=== PATIENT | female | born 1945 | race Caucasian/White ===

== ENCOUNTER 2018-01-04 10:39 | Outpatient (REF) | payer MEDICARE, SELFPAY ==
[2018-01-04 14:39] LABS: Hemoglobin A1C 5.6 % (4.5-6.2)
[2018-01-04 16:27] LABS: Cholesterol 215 mg/dL (50-200); HDL Cholesterol 77 mg/dL (40-60); LDL CHOLESTEROL 115 mg/dL (<100); Triglyceride 111 mg/dL (30-150)
== END 2018-01-04 10:59 ==
LOC: NCHCN 10:39
PROVIDERS: PCP Internal Medicine; Visit Provider Family Medicine
DX: R35.8 Other polyuria (principal); H40.9 Unspecified glaucoma; I10 Essential (primary) hypertension; R63.4 Abnormal weight loss; E78.00 Pure hypercholesterolemia, unspecified; Z13.1 Encounter for screening for diabetes mellitus
CPT/HCPCS: 80061; 83721; 83036

== ENCOUNTER 2018-04-27 00:33 | Outpatient (CLI) | payer MEDICARE, SELFPAY ==
--- NOTE | 2018-04-27 14:14 | DI.CT_ITS ---
SYMPTOMS/DIAGNOSIS: MUSCLE WEAKNESS X A COUPLE OF YEARS, M62.81, ACUTE CONFUSION, R41.0, PT STATES SHE FELL ONE WEEK AGO AND BECAME MORE CONFUSED S/P HITTING LEFT SIDE (PARIETAL) OF HEAD CRANIAL CT: A noncontrast cranial CT was performed. The ventricular system is normal in appearance. There is no evidence of an intracranial mass lesion. There is no evidence of a subdural or epidural hematoma. No focal areas of decreased attenuation are seen. CONCLUSION: Normal noncontrast cranial CT.
== END 2018-04-27 00:53 ==
PROVIDERS: PCP Internal Medicine; Visit Provider Family Medicine
DX: M62.81 Muscle weakness (generalized) (principal); R41.0 Disorientation, unspecified; S00.93XD Contusion of unspecified part of head, subsequent encounter; Z91.81 History of falling
CPT/HCPCS: 70450

== ENCOUNTER 2018-06-18 15:37 | Emergency (ER) | payer MEDICARE, SELFPAY ==
[2018-06-18] VITALS (45 sets, daily range): BP systolic 192–245; BP diastolic 88–118; PULSE 60–74; RESP 10–26; TEMP 36.3; O2SAT 94–98
--- NOTE | 2018-06-18 15:59 | DI.COMBO_ITS ---
SYMPTOM/DIAGNOSIS: HYPERTENSION, HEADACHE, ? ACUTE CVA NONCONTRAST HEAD CT: A noncontrast enhanced examination was performed. There is no evidence of an intra or extra-axial hemorrhage. There is no evidence of a mass or fluid collection. The sibley white matter differentiation is well maintained. The ventricles are normal. There is no skull fracture. There is no evidence of sinus disease. There is no mastoid effusion. The soft tissues are unremarkable. SUMMARY: No acute intracranial abnormality is demonstrated. PA AND LATERAL CHEST: The lungs are free of infiltrate. There is no pleural effusion. The cardiovascular structures are intact. SUMMARY: No evidence of acute cardiopulmonary disease.
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
--- NOTE | 2018-06-18 16:31 | DI.VRAD_ITS ---
EXAM: CT Head Without Contrast EXAM DATE/TIME: 06/18/2018 4:02 PM CLINICAL HISTORY: 72 years old, female; Pain; Headache; Other: L sided; Patient HX: L sided headache, hypertension; Additional info: PT stated no headache but had lost some abilities TECHNIQUE: Imaging protocol: Axial computed tomography images of the head/brain without contrast. Coronal and sagittal reformatted images were created and reviewed. STROKE PROTOCOL was implemented. COMPARISON: CT Head^HEAD ROUTINE (Adult) 04/27/2018 2:07 PM FINDINGS: Brain: Normal. No hemorrhage. No significant white matter disease. No edema. Ventricles: Normal. No ventriculomegaly. Bones/joints: Unremarkable. No acute fracture. Sinuses: Visualized sinuses are unremarkable. No acute sinusitis. Mastoid air cells: Visualized mastoid air cells are unremarkable. No mastoid effusion. Soft tissues: Unremarkable. IMPRESSION: No acute intracranial abnormality. ASSESSMENT: ASPECTS ([place] Stroke Program Early CT Score) is 10. Dictated and Authenticated by: Vinh Doherty MD. Ordering:ISA Stevenson MD
--- NOTE | 2018-06-18 16:32 | DI.VRAD_ITS ---
EXAM: XR Chest, 2 Views EXAM DATE/TIME: 06/18/2018 4:02 PM CLINICAL HISTORY: 72 years old, female; Signs and symptoms; Other: Hypertension; Patient HX: Hypertension, headache; Additional info: R/O acute disease TECHNIQUE: Imaging protocol: XR of the chest, 2 views. COMPARISON: RF BARIUM SWALLOW W PA LAT CXR 11/10/2014 10:06 AM FINDINGS: Lungs: Minimal stranding attenuation in the lung bases likely reflects atelectasis versus scarring. No consolidation. Pleural space: Unremarkable. No pleural effusion. No pneumothorax. Heart/Mediastinum: Unremarkable. No cardiomegaly. Vasculature: Aortic atherosclerosis. Bones/joints: Chronic osseous changes. Redemonstration of a mid thoracic compression fracture. IMPRESSION: No acute cardiopulmonary findings. Dictated and Authenticated by: Vinh Doherty MD. Ordering:ISA Stevenson MD
[2018-06-18] MEDS: Labetalol 100 MG/20 ML VIAL 20 MG IVP ×2 (16:36→17:20)
[2018-06-18 16:42] LABS: Abs Immature Grans 0.04 k/cumm (0.0-0.09); Absolute Eosinophil Count 0.51 k/cumm (0.0-0.7); Absolute Monocyte Count 0.86 k/cumm (0.11-0.7); Absolute Neutrophil Count 4.75 k/cumm (1.2-6.7); Basophils % 1.1; Eosinophils % 5.5; HCT 40.2 % (36.0-46.0); HGB 13.7 g/dL (12.0-15.5); Immature Grans % 0.4; Lymphocytes % 32.4; Mean Corp. HGB Concentration 34.1 g/dL (32.0-36.0); Mean Corpuscular Hemoglobin 29.3 pg (27.0-33.0); Mean Corpuscular Volume 86.1 fL (80-95); Monocytes % 9.3; Neutrophils % 51.3; Platelet Count 229 x1000/uL (130-400); RBC 4.67 m/cumm (4.00-5.20); RBC Distribution Width 12.5 % (11.7-14.6); White Blood Cell Count 9.26 k/cumm (4.4-10.8)
[2018-06-18 16:57] LABS: ALT 17 U/L (12-78); AST 7 U/L (15-37); Albumin 4.2 g/dL (3.4-5.0); Alkaline Phosphatase 112 U/L (46-116); Anion Gap 10.2 mmol/L (3-11); BUN 20 mg/dL (7-18); Bilirubin, Total 0.5 mg/dL (0.2-1.0); CO2 28.8 mmol/L (21.0-32.0); CREATININE 1.06 mg/dL (0.55-1.02); Calcium 9.2 mg/dL (8.5-10.1); Chloride 103 mmol/L (98-107); Glucose 97 mg/dL (70-100); Potassium 3.9 mmol/L (3.5-5.1); Sodium 142 mmol/L (136-145)
[2018-06-18 16:58] LABS: Troponin I < 0.02 ng/mL (0.00-0.06)
[2018-06-18 17:01] LABS: Magnesium 1.9 mg/dL (1.8-2.4); NT-proBNP 790 pg/mL
[2018-06-18 17:06] LABS: Bilirubin Negative (Negative); Blood Negative (Negative); Clarity Clear; Glucose Negative (Negative); Ketones Negative (Negative); Leukocyte Esterase Negative (Negative); Nitrite Negative (Negative); Specific Gravity 1.015 (1.005-1.025); Urobilinogen 0.2 EU/dL (Up TO 0.2); pH 7.5 (5-8)
--- NOTE | 2018-06-19 09:00 | PDOC.ERCMPRO ---
Care Management Progress Note 06/19-Dr. Kincaid requested assistance with a PCP (Brianna) f/u on Monday, 06/19 for hypertension emergency. Referral faxed to [facility] this am. This CM also called [facility] and spoke with Judy. Judy states patient is scheduled to see Dr. Alexander today.
--- NOTE | 2018-06-19 09:03 | CMPROGNOTE_ITS ---
Care Management Progress Note 06/19-Dr. Kincaid requested assistance with a PCP (Brianna) f/u on Monday, 06/19 for hypertension emergency. Referral faxed to [facility] this am. This CM also called [facility] and spoke with Judy. Judy states patient is scheduled to see Dr. Alexander today.
== END 2018-06-18 19:10 | disposition left against medical advice (07) ==
PROVIDERS: Emergency Provider Physician Assistant; PCP Internal Medicine
DX: I16.0 Hypertensive urgency (principal)
CPT/HCPCS: 36415; 80053; 93005; 96374; 96376; 99285; 70450; 71046; 81003; 83735; 83880; 84484; 85025; 93010

== ENCOUNTER → 2018-10-05 09:28 | Outpatient (BNVA) | payer MEDICARE, SELFPAY | PROVIDERS: PCP Internal Medicine; Referring Provider Internal Medicine; Visit Provider Surgery | DX: R13.10 Dysphagia, unspecified (principal); I10 Essential (primary) hypertension; G20 Parkinson's disease | CPT/HCPCS: 99202; 99213 ==

== ENCOUNTER 2018-11-09 09:00 | Day surgery (SDC) | payer MEDICARE, SELFPAY ==
[2018-11-09 09:35] VITALS: BP 126/80; PULSE 72; RESP 16; TEMP 36.7; O2SAT 72
[2018-11-09] MEDS: Lactated Ringers 1,000 ML 80 ML IV (09:45)
[2018-11-09] MEDS: Lidocaine 2% Pres-Free 5 ML VIAL IVP (10:30)
--- NOTE | 2018-11-09 10:56 | W.PM.DSUDISC ---
Discharge Plan Disposition Patient Disposition: HOME Condition: Good Discharge Details Reason For Visit: EGD with dilation Attending Provider: Kellee Antonio Primary Care Provider: Rosario Reed Home Meds and New Rx's Prescriptions: Continued diltiazem HCl [Cardizem LA] 360 mg tablet extended release 24 hr 360 mg PO DAILY RF: 0 polyethylene glycol 3350 [Miralax] 17 gram powder in packet 17 g PO DAILY PRNRF: 0 spironolactone 25 MG tablet 25 mg PO DAILY RF: 0 aspirin [Aspirin Low-Strength] 81 MG tablet,chewable 81 mg PO DAILY RF: 0 hydrocodone-acetaminophen 1 TAB tablet 1 tab PO TID PRN PRNRF: 0 cyclobenzaprine 10 mg Tablet 10 mg PO BID RF: 0 bupropion HCl [Wellbutrin SR] 150 mg Tablet Sustained-Release 12 Hr 150 mg PO BID RF: 0 oxybutynin chloride 10 mg Tablet Extended Release 24hr 10 mg PO DAILY RF: 0 cyanocobalamin (vitamin B-12) [Vitamin B-12] 1,000 mcg Tablet 1,000 mcg PO DAILY RF: 0 trazodone 100 mg Tablet 50 - 100 mg PO QHS RF: 0 pravastatin 20 mg Tablet 20 mg PO DAILY RF: 0 gabapentin 100 mg Capsule 100 mg PO BID RF: 0 albuterol sulfate [ProAir HFA] 90 mcg/actuation Hfa Aerosol Inhaler 2 puff INHALATION Q6H PRNRF: 0 losartan 100 mg Tablet 100 mg PO DAILY RF: 0 fluticasone propionate 50 mcg/actuation [place],Suspension 1 spray INTRANASAL BID RF: 0 naproxen 500 mg Tablet 500 mg PO BID RF: 0 buspirone 15 mg Tablet 15 mg PO BID RF: 0 magnesium L-lactate 84 mg Tablet Extended Release 84 mg PO HS RF: 0 Combigan 0.2-0.5 % Drops 1 drp OPHTHALMIC (EYE) BID RF: 0 cholecalciferol (vitamin D3) [Vitamin D3] 5,000 unit tablet 5,000 unit PO DAILY RF: 0 carbidopa-levodopa 25-100 mg Tablet 1 tab PO TID RF: 0 Discharge Instructions Additional Instructions: Findings: No significant abnormalities were seen. There was no inflammation in the esophagus. A dilation was performed. If this does not improve your swallowing, please contact your primary physician to consider a swallow study. Use antacids as needed. Please call if you develop: fevers >101.5 Nausea or Vomiting Abdominal or chest pain that is not transient DAY SURGERY UNIT POST EGD INSTRUCTIONS 1. Because there will be medication in your system for the next 24 hours, you may feel a little sleepy. Your coordination will be affected. Therefore: a. Do not drive or operate dangerous equipment for 24 hours. b. Do not drink alcohol beverages for 24 hours (not even beer). c. Plan to go home and rest for the day. 2. Generally there are no restrictions on your activity after a day or so has gone by, but you may feel a bit fatigued for a few days. 3 After you arrive home you may have a light meal and return to a normal diet as you can tolerate it without feeling sick to your stomach. 4. After surgery, you may feel pain or discomfort. This should be only transient, but if it persists please contact your doctor. 5. If there are any questions regarding the findings of your procedure, please feel free to contact your doctor. 6. If you are unable to contact your doctor with a problem, contact the hospital at [phone]. 7. Continue all your regular medications unless directed otherwise. I understand the above instructions and have no questions. Signature of Patient or Responsible Adult Escort Date/Time Name of Responsible Adult Escort Signature of Nurse Date/Time Activity:: Activity as Tolerated Diet:: As Tolerated Discharge Orders Discharge Orders: Discharge Order (Routine); Ordered 11/09/18 Ordered By: Kellee Antonio DS: Diagnosis Discharge Diagnosis (1) Dysphagia: Status: Acute (2) History of esophagogastroduodenoscopy (EGD):
[2018-11-09 11:35] VITALS: BP 115/75; PULSE 65; RESP 16; TEMP 36; O2SAT 96
--- NOTE | 2018-11-09 14:17 | ENDO_ITS ---
REPORT OF OPERATIVE PROCEDURE DATE OF PROCEDURE November 09, 2018 PREOPERATIVE DIAGNOSES Dysphagia. POSTOPERATIVE DIAGNOSES Dysphagia. PROCEDURE EGD with balloon dilation of the esophagus. SURGEON Kellee Antonio M.D. ANESTHESIA Monitored Anesthesia Care. INDICATIONS This is a 73-year-old woman who notes dysphagia on a frequent basis. This was primarily for breads. She has had an upper endoscopy for the same indication with the last one being done in 2016. At that time, she had biopsies of the esophagus that did not show evidence of eosinophilic esophagitis. The patient occasionally uses Tums for reflux. She has been recently diagnosed with Parkinson's. PROCEDURE DESCRIPTION The patient was placed in the left lateral decubitus position. Propofol was titrated to sedation. The scope was advanced into her esophagus under direct visualization and down into the stomach and duodenum. There was no duodenitis or ulcers noted. The stomach itself appeared normal, including on retroflexed view of the fundus and lesser curvature. The GE junction was carefully inspected and did not show an obvious stricture. There was also no evidence of masses, inflammation or Garcia's. There was a bit of angulation here, which made it slightly difficult to see the esophagus distend adequately. Given her symptoms, I elected to proceed with balloon dilation. I inserted the balloon and gradually inflated it from 15 mm to 18 mm. The balloon was held in place for a minute and then deflated. There was no evidence of tissue trauma. The scope was slowly withdrawn with no other esophageal lesions found. She tolerated the procedure well, and was stable to Recovery. I suspect her symptoms are probably from dysmotility and she can consider a swallow study as the next step. CC: Rosario Reed M.D.
== END 2018-11-09 11:55 | disposition home or self-care (01) ==
PROVIDERS: PCP Family Medicine; Visit Provider Surgery
PROC: 0DJ68ZZ Inspection of Stomach, Via Natural or Artificial Opening Endoscopic (ICD-10-PCS; CPT 43235; principal; 2018-11-09 10:30)
DX: R13.10 Dysphagia, unspecified (principal); I10 Essential (primary) hypertension
CPT/HCPCS: 43249; J2250

== ENCOUNTER 2019-01-16 21:43 | Outpatient (REF) | payer MEDICARE, SELFPAY ==
[2019-01-16 21:17] LABS: HCT 40.3 % (36.0-46.0); HGB 13.3 g/dL (12.0-15.5)
[2019-01-16 21:29] LABS: ALT 30 U/L (14-59); AST 10 U/L (15-37); Albumin 3.8 g/dL (3.4-5.0); Alkaline Phosphatase 144 U/L (46-116); Anion Gap 8.1 mmol/L (3-11); BUN 18 mg/dL (7-18); Bilirubin, Total 0.2 mg/dL (0.2-1.0); CO2 28.9 mmol/L (21.0-32.0); CREATININE 1.07 mg/dL (0.55-1.02); Calcium 8.8 mg/dL (8.5-10.1); Chloride 107 mmol/L (98-107); Estimated GFR 50.41 (mL/min/1.73m2); Glucose 126 mg/dL (70-100); Sodium 144 mmol/L (136-145); Total Protein 6.1 g/dL (6.4-8.2)
== END 2019-01-16 22:03 ==
LOC: NCHCN 21:43
PROVIDERS: PCP Family Medicine; Visit Provider Specialist/Technologist Athletic Trainer
DX: E83.42 Hypomagnesemia (principal); I10 Essential (primary) hypertension
CPT/HCPCS: 80053; 85014; 85018

== ENCOUNTER 2019-04-25 10:33 | Outpatient (REF) | payer MEDICARE, SELFPAY ==
[2019-04-25 13:56] LABS: Abs Immature Grans 0.05 k/cumm (0.0-0.09); Absolute Basophil Count 0.11 k/cumm (0.0-0.2); Absolute Eosinophil Count 0.43 k/cumm (0.0-0.7); Absolute Lymphocyte Count 2.43 k/cumm (1.2-3.4); Absolute Monocyte Count 0.89 k/cumm (0.11-0.7); Absolute Neutrophil Count 6.08 k/cumm (1.2-6.7); Basophils % 1.1; Eosinophils % 4.3; HCT 43.5 % (36.0-46.0); HGB 14.3 g/dL (12.0-15.5); Immature Grans % 0.5 %; Lymphocytes % 24.3; Mean Corp. HGB Concentration 32.9 g/dL (32.0-36.0); Mean Corpuscular Hemoglobin 28.6 pg (27.0-33.0); Monocytes % 8.9; Neutrophils % 60.9; Platelet Count 289 x1000/uL (130-400); RBC Distribution Width 13.7 % (11.7-14.6); White Blood Cell Count 9.99 k/cumm (4.4-10.8)
[2019-04-25 14:24] LABS: ALT 10 U/L (14-59); AST 10 U/L (15-37); Albumin 3.9 g/dL (3.4-5.0); Alkaline Phosphatase 144 U/L (46-116); Anion Gap 9.7 mmol/L (3-11); BUN 18 mg/dL (7-18); Bilirubin, Total 0.4 mg/dL (0.2-1.0); CO2 30.3 mmol/L (21.0-32.0); CREATININE 0.92 mg/dL (0.55-1.02); Calcium 9.1 mg/dL (8.5-10.1); Calculated LDL 209 mg/dL (<100); Chloride 104 mmol/L (98-107); Cholesterol 298 mg/dL (<200); Glucose 110 mg/dL (74-106); HDL Cholesterol 69 mg/dL (40-60); Potassium 3.9 mmol/L (3.5-5.1); Sodium 144 mmol/L (136-145); TSH (W/Ref FT4) 1.09 uIU/mL (0.36-3.74); Total Protein 6.5 g/dL (6.4-8.2); Triglyceride 103 mg/dL (<150)
== END 2019-04-25 10:53 ==
LOC: NCHCN 10:33
PROVIDERS: PCP Family Medicine; Visit Provider Family Medicine
DX: I10 Essential (primary) hypertension (principal); E78.00 Pure hypercholesterolemia, unspecified; G20 Parkinson's disease; H40.9 Unspecified glaucoma
CPT/HCPCS: 80053; 80061; 84443; 85025

== ENCOUNTER → 2020-01-06 10:53 | Outpatient (BNVA) | payer MEDICARE, SELFPAY | PROVIDERS: PCP Family Medicine; Referring Provider Family Medicine; Visit Provider Surgery | DX: R13.10 Dysphagia, unspecified (principal); G20 Parkinson's disease; I10 Essential (primary) hypertension | CPT/HCPCS: 99212 ==

== ENCOUNTER 2020-02-20 02:50 | Outpatient (CLI) | payer MEDICARE, SELFPAY ==
[2020-02-22 16:38] LABS: COVID-19 RT-PCR Result NEGATIVE (Negative)
== END 2020-02-20 03:10 ==
PROVIDERS: PCP Family Medicine; Visit Provider Family Medicine
DX: Z11.59 Encounter for screening for other viral diseases (principal); Z01.818 Encounter for other preprocedural examination
CPT/HCPCS: U0003

== ENCOUNTER 2020-02-24 00:14 | Outpatient (CLI) | payer MEDICARE, SELFPAY ==
--- NOTE | 2020-02-24 08:00 | DI.RAD_ITS ---
TECHNIQUE: Modified barium swallow was performed in conjunction with speech pathology. CONTRAST MATERIAL: Oral barium Oral water soluble contrast was administered. COMPARISON: No exams were available for comparison FINDINGS: There is no evidence of aspiration or penetration of thick or thin liquids, barium coated apple sauce , cottage cheese or cookies. Esophagus sweep revealed significant distal dysmotility with believe it distal stricture Speech pathology report to follow. . . . IMPRESSION: No evidence of aspiration or penetration. See speech pathologist's report. However, also suspicion f or possible distal stricture esophagus. Recommend endoscopy. RADIATION DOSE DELIVERED: Element of esophageal dilatation
--- NOTE | 2020-02-24 14:12 | ST.MBS ---
Modified Barium Swallow Date of service: 02/24/20 Study Findings: HPI: Patient is a 74 year old female, referred for VFSS/MBSS given clinical s/sx of oropharyngeal dysphagia PMHx: Parkinsons Disease, Lewy body dementia, recurrent dysphagia, GERD, myalgia and myositis, spondylosis of lumbar region without myelopathy or radiculopathy, Anxiety, Depression, Dissociative identity disorder, Essential tremor, Fibromyalgia, Glaucoma, History of substance abuse, HTN (hypertension), Hypercholesterolemia, Hypomagnesemia, Lactose intolerance, PTSD (post-traumatic stress disorder), Urinary incontinence; patient does have hx of esophageal strictures in the past, S/P dilatations in 2015, 2016, and most recently 2019, also reports being on Prilosec at one point, and is unsure if she had any esophagitis in the past. Patient is unable to report whether esophageal dilation was upper or lower esophagus prior to study today. Previous Imaging: EGD with esophageal dilation with Dr. Antonio (11/09/18) EGD - [facility] (01/16/15) DR. HAMLET THOMAS, with dilatation EGD - [facility] (02/10/16) DR. HAMLET THOMAS, with dilatation History of back surgery History of esophagogastroduodenoscopy (EGD) 11/09/18 History of surgery on arm Follow-Up with Dr. Antonio (01/06/20) The EGD last year did not show an obvious source for dysphagia and she did not gain much from the dilation. At that time a motility issue was a concern. I advise investigating that issue first before proceeding with an invasive procedure. She may have achalasia, nutcracker esophagus or motility issues related to Parkinsons. Manometry may be indicated depending on the results. We can also reconsider EGD if needed. All recommendations discussed with patient today; both Dr. Reed and Dr. Antonio cc'd on this report with recommendations as outlined below. Subjective: Patient states that bread causes her throat to close, and that she typically does not have issues with swallowing pills in particular (PILL-5 = 1, WFL), although occasionally pills do get stuck. Patient also reports increase in belching as of late, lots of phlegm, and severe reflux/heartburn. Of note, patient does report that pain with swallowing (motions to pharyngeal area) occurs with swallow onset (rated at 3/10, when squeezing food or liquids down) and then increases briefly after she has swallowed (rated at 8/10, described as dull but strong pain) which then completely subsides. Patient also reports she 'chokes almost daily', reports she has a frequent cough (not observed today), which she relates to ongoing reflux; also endorses an unintentional, approximate 20-lb weight loss over past year. Patient also agreeable to continued recommendations for behavioral management of reflux symptomology (RSI=32, high) and continued physician consult for additional management. PILL-5 = 1 (WFL) EAT-10 = 9 (scores above 3 may indicate inefficiency with swallowing) RSI = 32 (scores above 13 may indicate significant reflux disease) Objective: Videofluoroscopic Swallow Study (VFSS) was conducted in the lateral and [id number] projections by Speech-Language Pathologist, in collaboration with Radiologist, to evaluate oropharyngeal swallow function. Anatomic view under fluoroscopy: [facility] Patient denies pain during or after exam today. PO barium contrast trials: Oral barium Oral water soluble contrast was administered. Specifically, Varibar thin (40% w/v), Varibar nectar/mildly thick liquid (40% w/v), Varibar thin honey (moderately-thick) liquid (40% w/v), Varibar pudding (40% w/v), 13mm barium tablet, and solid any cracker coated in Varibar pudding. Oral phase findings: Lip closure: WFL - 0, no labial escape Tongue control: WFL - 0, cohesive bolus to tongue to palatal seal Bolus preparation: WFL - 1, slow prolonged mastication with complete recollection Bolus Transport/Lingual motion: WFL - 1, delayed initiation of tongue motion Oral residue: 1C, trace residue lining oral structures / tongue Pharyngeal phase findings: Initiation of swallow: 3, bolus head in pyriforms Velar elevation: WFL - 0, no bolus between SP/PW Laryngeal elevation: 1, partial superior movement of thyroid cartilage/partial approximation of arytenoids to epiglottic petiole Anterior hyoid excursion: 1, partial anterior movement Epiglottic movement: 1, partial inversion Laryngeal vestibule closure: 1, incomplete; narrow column contrast in laryngeal vestibule Pharyngeal stripping wave: WFL - 0, complete Pharyngeal contraction: WFL - 0, complete PES openin, partial distension/partial duration; partial obstruction of flow BOT retraction: WFL - 0, No contrast between TB and posterior PW Pharyngeal residue: 1A, 1E - Trace residue within or on pharyngeal structures (TB, PS) Esophageal findings: NOTE: This study was performed for interpretation only of the oropharyngeal and pharyngoesophageal domains of swallowing. It is not intended to diagnose any other radiologic abnormalities or substitute for a formal esophagram study. Esophageal clearance: 2, esophageal retention w retrograde flow below pharyngoesophageal segment (PES) 8-point Penetration-Aspiration Scale (PAS) [place] Pharyngeal Residue Severity Rating Scale [Valleculae/Pyriform Sinus] IDDSI Level: 0 - Thin liquid PAS: 2 Susan: 03/20 2 - Mildly Thick PAS: 2 Susan: 2 3- Moderately thick/Liquidised PAS: 1 [place]: 04/21 4 - Extremely Thick/Pureed PAS: 1 Susan: 05/19 7 - Regular PAS: 1 [place]: 04/21 13mm barium pill + 0 - Thin liquid PAS: 1 [place]: 03/20 Compensatory Swallow Strategies: N/A Dysphagia Outcome and Severity Scale (ERIN): 6 Assessment: Swallow efficiency is impaired; swallow safety is grossly preserved at this time. Patient demonstrates oropharyngeal dysphagia with esophageal involvement, as characterized by mild pharyngeal hypokinesia and slight dysrhythmic swallowing movements/coordination with delayed pharyngeal swallow initiation, resulting in trace-mild vallecular and pyriform sinus residue with liquids of higher viscosity; occasional laryngeal penetration (deemed WFL, material enters the laryngeal vestibule but remains above the VFs, is ejected from airway with volitional swallow sequence); esophageal retention is noted with retrograde flow below pharyngoesophageal segment (PES). No evidence of aspiration noted with any trialed consistencies; dysphagia presentation likely due to combination of referred sensations from esophageal involvement paired with progressive nature of overall swallowing decline in Parkinson's Disease. Swallow prognosis is good at this time, pending GI consult with consideration of barium esophagram/high resolution manometry, patient involvement in PD-specific voice/swallow exercise treatment and proactive maintenance program(s) with FLOOR LAYER APPRENTICE as appropriate. Plan: Diet recommendation: IDDSI 7/0 Diet modification is per patient's preference; please adjust diet at patient's discretion. Risk management: Behavioral reflux precautions, including upright position during + 90 mins after meals. small bites/sips, alternate solid/liquid as able pharyngeal globus: multiple swallows per bolus as needed, thin liquid wash Control risk factors for aspiration pneumonia via (a) oral hygiene & (b) maintaining physical mobility as tolerated Specialist referrals: GI to further investigate esophageal involvement RD to address nutritional concerns, unintended weight loss Ancillary tests: Consider Barium Esophagram or High Resolution Manometry Therapy: Recommend subsequent outpatient session with FLOOR LAYER APPRENTICE to review results of today's exam in detail, develop treatment plan as appropriate. May address the following: PD-specific voice/swallow treatment programs (LSVT-LOUD, SPEAK OUT!) once reflux symptomology is well-managed, RMST to maintain respiratory strength in context of expected PD progression; Recommend administration of swallowing disturbance questionnaire (SDQ) or [place] Dysphagia test-Parkinson?s disease (MDT-PD) to identify relative changes over time. Goal: N/A Follow-up exam: Recommend follow-up VFSS/MBSS within 6 months Note: Best practice indicates routine, repeat VFSS/MBSS for patients diagnosed with PD - Due to the low association between PD patients' self reported swallowing condition and actual swallowing function, either FEES or VFSS/MBSS is essential for the assessment of dysphagia in PD (Marvin & Ana, 2020) Thank you for allowing me to take part in this patient's care. Please feel free to contact me with any questions/concerns. Yelitza Yo MA [facility]-FLOOR LAYER APPRENTICE Speech Language Pathologist [phone] FLOOR LAYER APPRENTICE Service Code(s): Modified Barium Swallow Study 64862
[2020-02-25] MEDS: Barium Sulfate Oral Paste 40% W/V 230 ML TUBE PO (08:57)
[2020-02-25] MEDS: Barium Sulfate 81% w/w for Oral Suspension 148 GM BTL PO (08:58)
[2020-02-25] MEDS: Barium Sulfate 40% W/V 240 ML BTL PO (13:30)
== END 2020-02-24 00:34 ==
PROVIDERS: PCP Family Medicine; Visit Provider Surgery
DX: R13.12 Dysphagia, oropharyngeal phase (principal)
CPT/HCPCS: 92526; 74221; J3490

== ENCOUNTER → 2020-05-04 13:22 | Outpatient (BNVA) | payer MEDICARE, SELFPAY | PROVIDERS: PCP Family Medicine; Referring Provider Family Medicine; Visit Provider Surgery | DX: K20.90 Esophagitis, unspecified without bleeding (principal); F12.11 Cannabis abuse, in remission; Z87.891 Personal history of nicotine dependence; G20 Parkinson's disease ==

== ENCOUNTER 2020-05-04 14:12 | Outpatient (CLI) | payer MEDICARE, SELFPAY ==
[2020-05-04 14:51] LABS: Abs Immature Grans 0.05 10^3/uL (0.0-0.06); Absolute Eosinophil Count 0.23 10^3/uL (0.0-0.7); Absolute Lymphocyte Count 2.49 10^3/uL (1.2-3.4); Absolute Monocyte Count 0.82 10^3/uL (0.1-0.8); Absolute Neutrophil Count 6.21 10^3/uL (1.2-6.7); Eosinophils % 2.3; HCT 40.6 % (36.0-46.0); HGB 13.3 g/dL (11.2-15.7); Immature Grans % 0.5; Lymphocytes % 25.2; MCH 29.4 pg (27.0-33.0); MCHC 32.8 % (32.0-36.0); MCV 89.8 fL (80-95); Monocytes % 8.3; Neutrophils % 62.7; Nucleated RBC 0 %; Platelet Count 276 10^3/uL (130-400); RBC 4.52 10^6/uL (3.93-5.22); RDW 12.3 % (11.7-14.6); RDW-SD 40.5 fL
[2020-05-04 15:43] LABS: ALT 24 U/L (14-59); AST 14 U/L (15-37); Albumin 3.6 g/dL (3.4-5.0); Alkaline Phosphatase 160 U/L (46-116); BUN 22 mg/dL (7-18); Bilirubin, Total 0.2 mg/dL (0.2-1.0); CREATININE 0.9 mg/dL (0.55-1.02); Calcium 9.1 mg/dL (8.5-10.1); Chloride 107 mmol/L (98-107); Glucose 100 mg/dL (74-106); Sodium 146 mmol/L (136-145); Total Protein 6.2 g/dL (6.4-8.2)
[2020-05-05 19:40] LABS: COVID-19 RT-PCR UVMMC Result Negative (Negative)
== END 2020-05-04 14:13 | disposition home or self-care (01) ==
LOC: LBO 14:12
PROVIDERS: PCP Family Medicine; Visit Provider Surgery
DX: E73.9 Lactose intolerance, unspecified (principal); F12.11 Cannabis abuse, in remission; F44.81 Dissociative identity disorder; K50.90 Crohn's disease, unspecified, without complications; K22.2 Esophageal obstruction; M47.816 Spondylosis without myelopathy or radiculopathy, lumbar region; Z87.891 Personal history of nicotine dependence; Z20.822 Contact with and (suspected) exposure to COVID-19; Z01.818 Encounter for other preprocedural examination
CPT/HCPCS: 36415; 80053; 99212; 99214; U0003; U0005; 85025

== ENCOUNTER 2020-05-08 09:49 | Day surgery (SDC) | payer MEDICARE, SELFPAY ==
[2020-05-08 10:16] VITALS: BP 165/85; PULSE 63; RESP 16; TEMP 36.5; O2SAT 97
[2020-05-08] MEDS: Lactated Ringers 1,000 ML 80 ML IV (10:35)
--- NOTE | 2020-05-08 11:27 | BOWEL_PTH ---
PATIENT: Alyson Galvez LOC: [facility] U#:[id number] AGE/SX: 74/F ROOM: RE05/08/[address]: Nava Parra : 1945 BED: DIS: 05/08/2020 SPEC #: [id number] RECD: 05/08/20 12:34 STATUS: YANETH RE #: [id number] TIMBO: 05/08/20 11:[address]: Nava Parra DEPT: Surgical Specimen RECD BY: Susan Flanagan ENTERED: 05/08/20 12:39 SP TYPE: Bowel OTHR DR: Rosario Reed Tissues: 1 - BIOPSY BOWEL 2 - STOMACH BIOPSY 3 - STOMACH BIOPSY 4 - ESOPHAGUS BIOPSY 5 - ESOPHAGUS BIOPSY 6 - HERNIA SAC,OTHER Procedures: GROSS AND MICRO LEVEL 4 IMMUNOPEROXIDASE STAIN SPECIAL STAIN 1 Comments: [id number]
[2020-05-08 11:39] VITALS: BP 107/65; PULSE 55; RESP 13; TEMP 36.2; O2SAT 100
[2020-05-08 11:44] VITALS: BP 146/59; PULSE 53; RESP 12; TEMP 36.2; O2SAT 100
[2020-05-08 11:49] VITALS: BP 158/86; PULSE 61; RESP 13; TEMP 36.2; O2SAT 100
[2020-05-08 11:54] VITALS: BP 151/73; PULSE 55; RESP 10; TEMP 36.2; O2SAT 98
--- NOTE | 2020-05-08 11:55 | PDOC.DSDIS_ITS ---
Discharge Plan Disposition Patient Disposition: HOME Condition: Good Discharge Details Reason For Visit: stomach scope Attending Provider: Nava Parra Primary Care Provider: Rosario Reed Home Meds and New Rx's Prescriptions: New pantoprazole [Protonix] 40 mg tablet,delayed release (DR/EC) 40 mg PO DAILY Qty: 90 RF: 4 sucralfate [Carafate] 1 gram tablet 1 g PO QHS Qty: 180 RF: 4 Continued diltiazem HCl [Cardizem LA] 360 mg tablet extended release 24 hr 360 mg PO DAILY RF: 0 polyethylene glycol 3350 [Miralax] 17 gram powder in packet 17 g PO DAILY PRNRF: 0 sennosides [Natural Senna Laxative] 8.6 mg tablet 8.6 mg PO BID RF: 0 oxybutynin chloride 5 mg tablet 5 mg PO QHS RF: 0 mirtazapine 15 mg tablet 15 mg PO QHS RF: 0 hydrocodone-acetaminophen 10-325 mg tablet 1 tab PO Q8H PRNRF: 0 albuterol sulfate [ProAir HFA] 90 mcg/actuation HFA aerosol inhaler 2 puff inhalation Q6H PRNRF: 0 spironolactone 25 MG tablet 25 mg PO DAILY RF: 0 cyclobenzaprine 10 mg Tablet 10 mg PO BID RF: 0 bupropion HCl [Wellbutrin SR] 150 mg Tablet Sustained-Release 12 Hr 150 mg PO BID RF: 0 oxybutynin chloride 10 mg Tablet Extended Release 24hr 10 mg PO DAILY RF: 0 cyanocobalamin (vitamin B-12) [Vitamin B-12] 1,000 mcg Tablet 1,000 mcg PO DAILY RF: 0 trazodone 100 mg Tablet 50 - 100 mg PO QHS RF: 0 pravastatin 20 mg Tablet 20 mg PO DAILY RF: 0 gabapentin 100 mg Capsule 100 mg PO BID RF: 0 losartan 100 mg Tablet 100 mg PO DAILY RF: 0 fluticasone propionate 50 mcg/actuation [place],Suspension 1 spray INTRANASAL BID RF: 0 naproxen 500 mg Tablet 500 mg PO BID RF: 0 buspirone 15 mg Tablet 15 mg PO BID RF: 0 magnesium L-lactate 84 mg Tablet Extended Release 84 mg PO HS RF: 0 Combigan 0.2-0.5 % Drops 1 drp OPHTHALMIC (EYE) BID RF: 0 cholecalciferol (vitamin D3) [Vitamin D3] 5,000 unit tablet 5,000 unit PO DAILY RF: 0 carbidopa-levodopa 25-100 mg Tablet 1 tab PO TID RF: 0 Discontinued omeprazole 20 mg capsule,delayed release(DR/EC) 20 mg PO BID RF: 0 Discharge Instructions Additional Instructions: Findings:hiatal hernia. Bile reflux gastritis. Did not require dilation Follow up: Will send a letter w/ derrek results in 3-weeks. Continue with lifestyle modifications: no alcohol, tobacco products, Aspirin or NSAID's (ibuprofen, Motrin, Naprosyn, aleve, etc). Try to limit: soda pop/any carbonated beverages, caffeine (including tea & chocolate), and acidic foods, (tomatoes, citrus, onions, peppermints) spicy or fried/fatty foods. Do not lie down for 30 minutes after eating, and do not eat 2 hours prior to bedtime. Avoid wearing tight fitting clothing/ belts -stop prilosec and start protonix -carafate at bedtime (can dissolve in water and drink as a slurry). Also take one prior to taking any NSADI's Please call if you develop: fevers >101.5 Nausea or Vomiting Abdominal pain that is not transient DAY SURGERY UNIT POST COLONOSCOPY INSTRUCTIONS 1. Because there will be medication in your system for the next 24 hours, you may feel a little sleepy. Your coordination will be affected. Therefore: a. Do not drive or operate dangerous equipment for 24 hours. b. Do not drink alcohol beverages for 24 hours (not even beer). c. Plan to go home and rest for the day. 2. Generally there are no restrictions on your activity after a day or so has gone by, but you may feel a bit fatigued for a few days. 3 After you arrive home you may have a light meal and return to a normal diet as you can tolerate it without feeling sick to your stomach. 4. After surgery, you may feel pain or discomfort. This should be only transient, but if it persists please contact your doctor. 5. If there are any questions regarding the findings of your procedure, please feel free to contact your doctor. 6. If you are unable to contact your doctor with a problem, contact the hospital at [phone]. 7. Continue all your regular medications unless directed otherwise. I understand the above instructions and have no questions. Signature of Patient or Responsible Adult Escort Date/Time Name of Responsible Adult Escort Signature of Nurse Date/Time Activity:: No lifting over 20 pounds or strenuous activity x24 hours. Diet:: Small light meals x24 hours. Discharge Orders Discharge Orders: Discharge Order (Routine); Ordered 05/08/20 Ordered By: Nava Parra DS: Diagnosis Discharge Diagnosis (1) Cannabis use, uncomplicated: Status: Acute (2) Hiatal hernia: Status: Chronic (3) Bile reflux gastritis: Status: Acute
--- NOTE | 2020-05-08 12:07 | ENDO_ITS ---
Date of service: 05/08/20 Time of Service: 12:07 Endoscopy Report DATE OF PROCEDURE: 05/08/20 PRE-OP DIAGNOSIS: dysphagia /hx of dilation POST-OP DIAGNOSIS: other (bile reflux gastritis/hiatal hernia ) PROCEDURE: egd/bx dialtion not required SURGEON: Nava Parra ANESTHESIA: ANALYA ESTIMATED BLOOD LOSS: 1 PATHOLOGY: other COMPLICATIONS: None DISPOSITION: PACU PROCEDURE DESCRIPTION: After informed consent was obtained the patient was take to the procedure room and placed in a supine position. Monitors were applied and a time out was done. The patients name, date of , procedure type, allergies to medications and metal in their body was reviewed. A bite block was placed and the patient was sedated. Once sedated and comfortable the gastroscope was advanced through the oropharynx which was grossly normal into the esophagus. The proximal and mid-esophagus were nl. In the distal esophagus there was sliding hiatal hernia noted-only involves 50% of circumerfence. The scope was advanced into the stomach and through the pylorus into the 3rd portion of the duodenum. The duodenum was noted to be nl. Biopsies were done, all specimens are retrieved and no bleeding is noted. The scope was retracted back into the stomach and biopsies were done to rule out H. pylori. She does have moderate reflux in a striped pattern radiating up from the antrum. She is also noted to have large amount of bile refluxing through the antrum. There were no ulcers. The scope was retroflexed. The cardia and fundus were noted to be normal. There is a small sliding hiatal hernia noted. It is only herniated in the posterior position and not completely circumferentially. The scope was retracted back into the esophagus and biopsies were done of the GE junction to rule out Garcia's. The Z line was regular. The GE junction was at which 38cm. The scope was removed and the patient was woken up and taken back to [facility] in stable condition. If patient continues to have problems after being on medication for about 4 weeks, then I would recommend having a modified barium swallow study done with speech. When her heart history of Parkinson's there is a high probability that her problems are physiologic in nature.
--- NOTE | 2020-05-08 12:18 | W.PM.DSUDISC ---
Discharge Plan Disposition Patient Disposition: HOME Condition: Good Discharge Details Reason For Visit: stomach scope Attending Provider: Nava Parra Primary Care Provider: Rosario Reed Home Meds and New Rx's Prescriptions: New pantoprazole [Protonix] 40 mg tablet,delayed release (DR/EC) 40 mg PO DAILY Qty: 90 RF: 4 sucralfate [Carafate] 1 gram tablet 1 g PO QHS Qty: 180 RF: 4 Continued diltiazem HCl [Cardizem LA] 360 mg tablet extended release 24 hr 360 mg PO DAILY RF: 0 polyethylene glycol 3350 [Miralax] 17 gram powder in packet 17 g PO DAILY PRNRF: 0 sennosides [Natural Senna Laxative] 8.6 mg tablet 8.6 mg PO BID RF: 0 oxybutynin chloride 5 mg tablet 5 mg PO QHS RF: 0 mirtazapine 15 mg tablet 15 mg PO QHS RF: 0 hydrocodone-acetaminophen 10-325 mg tablet 1 tab PO Q8H PRNRF: 0 albuterol sulfate [ProAir HFA] 90 mcg/actuation HFA aerosol inhaler 2 puff inhalation Q6H PRNRF: 0 spironolactone 25 MG tablet 25 mg PO DAILY RF: 0 cyclobenzaprine 10 mg Tablet 10 mg PO BID RF: 0 bupropion HCl [Wellbutrin SR] 150 mg Tablet Sustained-Release 12 Hr 150 mg PO BID RF: 0 oxybutynin chloride 10 mg Tablet Extended Release 24hr 10 mg PO DAILY RF: 0 cyanocobalamin (vitamin B-12) [Vitamin B-12] 1,000 mcg Tablet 1,000 mcg PO DAILY RF: 0 trazodone 100 mg Tablet 50 - 100 mg PO QHS RF: 0 pravastatin 20 mg Tablet 20 mg PO DAILY RF: 0 gabapentin 100 mg Capsule 100 mg PO BID RF: 0 losartan 100 mg Tablet 100 mg PO DAILY RF: 0 fluticasone propionate 50 mcg/actuation [place],Suspension 1 spray INTRANASAL BID RF: 0 naproxen 500 mg Tablet 500 mg PO BID RF: 0 buspirone 15 mg Tablet 15 mg PO BID RF: 0 magnesium L-lactate 84 mg Tablet Extended Release 84 mg PO HS RF: 0 Combigan 0.2-0.5 % Drops 1 drp OPHTHALMIC (EYE) BID RF: 0 cholecalciferol (vitamin D3) [Vitamin D3] 5,000 unit tablet 5,000 unit PO DAILY RF: 0 carbidopa-levodopa 25-100 mg Tablet 1 tab PO TID RF: 0 Discontinued omeprazole 20 mg capsule,delayed release(DR/EC) 20 mg PO BID RF: 0 Discharge Instructions Instructions: Hiatal Hernia (GEN) Additional Instructions: Findings:hiatal hernia. Bile reflux gastritis. Did not require dilation Follow up: Will send a letter w/ derrek results in 3-weeks. Continue with lifestyle modifications: no alcohol, tobacco products, Aspirin or NSAID's (ibuprofen, Motrin, Naprosyn, aleve, etc). Try to limit: soda pop/any carbonated beverages, caffeine (including tea & chocolate), and acidic foods, (tomatoes, citrus, onions, peppermints) spicy or fried/fatty foods. Do not lie down for 30 minutes after eating, and do not eat 2 hours prior to bedtime. Avoid wearing tight fitting clothing/ belts -stop prilosec and start protonix -carafate at bedtime (can dissolve in water and drink as a slurry). Also take one prior to taking any NSADI's Please call if you develop: fevers >101.5 Nausea or Vomiting Abdominal pain that is not transient DAY SURGERY UNIT POST COLONOSCOPY INSTRUCTIONS 1. Because there will be medication in your system for the next 24 hours, you may feel a little sleepy. Your coordination will be affected. Therefore: a. Do not drive or operate dangerous equipment for 24 hours. b. Do not drink alcohol beverages for 24 hours (not even beer). c. Plan to go home and rest for the day. 2. Generally there are no restrictions on your activity after a day or so has gone by, but you may feel a bit fatigued for a few days. 3 After you arrive home you may have a light meal and return to a normal diet as you can tolerate it without feeling sick to your stomach. 4. After surgery, you may feel pain or discomfort. This should be only transient, but if it persists please contact your doctor. 5. If there are any questions regarding the findings of your procedure, please feel free to contact your doctor. 6. If you are unable to contact your doctor with a problem, contact the hospital at [phone]. 7. Continue all your regular medications unless directed otherwise. I understand the above instructions and have no questions. Signature of Patient or Responsible Adult Escort Date/Time Name of Responsible Adult Escort Signature of Nurse Date/Time Stand Alone Forms: Claudio Mercado (DSU) Activity:: No lifting over 20 pounds or strenuous activity x24 hours. Diet:: Small light meals x24 hours. Discharge Orders Discharge Orders: Discharge Order (Routine); Ordered 05/08/20 Ordered By: Nava Parra Discharge Data Discharge Date/Time-TO BE ENTERED AT DEPARTURE: 05/08/20 13:25 Discharge Comment: Pt d/c'd with spouse in personal vehicle. DS: Diagnosis Discharge Diagnosis (1) Cannabis use, uncomplicated: Status: Acute (2) Hiatal hernia: Status: Chronic (3) Bile reflux gastritis: Status: Acute
[2020-05-08 13:05] VITALS: BP 174/84; PULSE 69; RESP 16; TEMP 36.3; O2SAT 98
== END 2020-05-08 13:25 | disposition home or self-care (01) ==
PROVIDERS: PCP Family Medicine; Visit Provider Surgery
PROC: 0DJ68ZZ Inspection of Stomach, Via Natural or Artificial Opening Endoscopic (ICD-10-PCS; CPT 43235; principal; 2020-05-08 11:00)
DX: K44.9 Diaphragmatic hernia without obstruction or gangrene (principal); K29.70 Gastritis, unspecified, without bleeding; G20 Parkinson's disease; K21.9 Gastro-esophageal reflux disease without esophagitis
CPT/HCPCS: 43239; 88305; 88302; 88312; 88361; J2001; J2250

== ENCOUNTER 2020-06-22 21:22 | Outpatient (REF) | payer MEDICARE, SELFPAY ==
[2020-06-24 18:05] LABS: COVID-19 RT-PCR UVMMC Result Negative (Negative)
== END 2020-06-22 21:23 | disposition home or self-care (01) ==
LOC: NCHCN 21:22
PROVIDERS: PCP Family Medicine; Visit Provider Family Medicine
DX: Z20.822 Contact with and (suspected) exposure to COVID-19 (principal); R05 Cough
CPT/HCPCS: U0003

== ENCOUNTER 2020-07-27 12:39 | Outpatient (CLI) | payer MEDICARE, SELFPAY ==
--- NOTE | 2020-07-27 10:43 | DI.RAD_ITS ---
Exam(s) XR CHEST 2V PA LATERAL EXAM: XR CHEST 2V PA LATERAL CLINICAL HISTORY: COUGH CHRONIC, R05. TECHNIQUE: 2D digital imaging was performed. COMPARISON: CR XR CHEST 2V PA LATERAL from 06/18/2018 FINDINGS: Heart size is normal. The mediastinum again reveals a somewhat tortuous descending thoracic aorta, u nchanged. Lungs are clear. No infiltrates nor pleural effusions. No pulmonary edema. IMPRESSION: No acute pulmonary findings. DATA REPOSITORY: RADIATION DOSE DELIVERED:
== END 2020-07-27 12:59 ==
PROVIDERS: PCP Family Medicine; Visit Provider Family Medicine
DX: R05 Cough (principal)
CPT/HCPCS: 71046

== ENCOUNTER 2020-07-29 23:04 | Outpatient (REF) | payer MEDICARE, SELFPAY ==
[2020-07-31 15:53] LABS: COVID-19 RT-PCR UVMMC Result Negative (Negative)
== END 2020-07-29 23:05 | disposition home or self-care (01) ==
LOC: NCHCN 23:04
PROVIDERS: PCP Family Medicine; Visit Provider Family Medicine
DX: Z20.822 Contact with and (suspected) exposure to COVID-19 (principal); R05 Cough
CPT/HCPCS: U0003

== ENCOUNTER → 2020-08-11 10:44 | Outpatient (BNVA) | payer MEDICARE, SELFPAY | PROVIDERS: PCP Family Medicine; Referring Provider Family Medicine; Visit Provider Nurse Practitioner Gerontology | DX: N39.41 Urge incontinence (principal) | CPT/HCPCS: 81003; 99215 ==

== ENCOUNTER 2020-08-11 16:05 | Outpatient (REF) | payer MEDICARE, SELFPAY | END 2020-08-11 16:06 | disposition home or self-care (01) | LOC: LBN 16:05 | PROVIDERS: PCP Family Medicine; Visit Provider Nurse Practitioner Gerontology | DX: N39.41 Urge incontinence (principal) | CPT/HCPCS: 87077; 87086; 87186 ==

== ENCOUNTER 2020-08-28 16:09 | Outpatient (REF) | payer MEDICARE, SELFPAY | END 2020-08-28 16:10 | disposition home or self-care (01) | LOC: NCHCN 16:09 | PROVIDERS: PCP Family Medicine; Visit Provider Family Medicine | DX: R30.0 Dysuria (principal) | CPT/HCPCS: 87086 ==

== ENCOUNTER → 2020-09-01 08:52 | Outpatient (BNVA) | payer MEDICARE, SELFPAY | PROVIDERS: PCP Family Medicine; Referring Provider Family Medicine; Visit Provider Nurse Practitioner Gerontology | DX: N39.41 Urge incontinence (principal); K59.00 Constipation, unspecified; Z87.440 Personal history of urinary (tract) infections | CPT/HCPCS: 99213 ==

== ENCOUNTER 2020-09-04 13:39 | Outpatient (REF) | payer MEDICARE, SELFPAY ==
[2020-09-04 20:31] LABS: Abs Immature Grans 0.03 10^3/uL (0.0-0.06); Absolute Basophil Count 0.12 10^3/uL (0.0-0.2); Absolute Eosinophil Count 0.23 10^3/uL (0.0-0.7); Absolute Lymphocyte Count 2.59 10^3/uL (1.2-3.4); Absolute Monocyte Count 0.77 10^3/uL (0.1-0.8); Absolute Neutrophil Count 4.81 10^3/uL (1.2-6.7); Basophils % 1.4; Eosinophils % 2.7; HCT 43.1 % (36.0-46.0); Immature Grans % 0.4; Lymphocytes % 30.3; MCHC 32.5 % (32.0-36.0); MCV 89.4 fL (80-95); MPV 10.4 fL (8.0-11.0); Neutrophils % 56.2; Nucleated RBC 0 %; Platelet Count 333 10^3/uL (130-400); RBC 4.82 10^6/uL (3.93-5.22); RDW 12.9 % (11.7-14.6); RDW-SD 42.6 fL; WBC 8.55 10^3/uL (4.4-10.8)
[2020-09-04 21:12] LABS: ALT 25 U/L (14-59); AST 15 U/L (15-37); Albumin 3.9 g/dL (3.4-5.0); Alkaline Phosphatase 155 U/L (46-116); Anion Gap 6.8 mmol/L (3-11); BUN 25 mg/dL (7-18); Bilirubin, Total 0.3 mg/dL (0.2-1.0); CO2 31.2 mmol/L (21.0-32.0); Calcium 9.4 mg/dL (8.5-10.1); Chloride 104 mmol/L (98-107); Estimated GFR 54.35 (mL/min/1.73m2); Glucose 110 mg/dL (74-106); Potassium 4.7 mmol/L (3.5-5.1); Sodium 142 mmol/L (136-145); TSH (W/Ref FT4) 0.51 uIU/mL (0.36-3.74); Total Protein 6.7 g/dL (6.4-8.2)
[2020-09-04 21:13] LABS: Vitamin B12 > 2000 pg/mL (193-986)
== END 2020-09-04 13:40 | disposition home or self-care (01) ==
LOC: NCHCN 13:39
PROVIDERS: PCP Family Medicine; Visit Provider Family Medicine
DX: G20 Parkinson's disease (principal); M62.81 Muscle weakness (generalized); E53.8 Deficiency of other specified B group vitamins
CPT/HCPCS: 80053; 82607; 84443; 85025

== ENCOUNTER → 2020-09-09 09:26 | Outpatient (BNVA) | payer MEDICARE, SELFPAY | PROVIDERS: PCP Family Medicine; Referring Provider Family Medicine; Visit Provider Nurse Practitioner Gerontology | DX: N39.41 Urge incontinence (principal); I10 Essential (primary) hypertension; H40.9 Unspecified glaucoma | CPT/HCPCS: 81003; 99214 ==

== ENCOUNTER → 2020-11-10 13:26 | Outpatient (BNVA) | payer MEDICARE, SELFPAY | PROVIDERS: PCP Family Medicine; Referring Provider Family Medicine; Visit Provider Nurse Practitioner Gerontology | DX: N39.41 Urge incontinence (principal) | CPT/HCPCS: 99214 ==

== ENCOUNTER → 2020-12-03 13:26 | Outpatient (BNVA) | payer MEDICARE, MEDICAID, SELFPAY | PROVIDERS: PCP Family Medicine; Visit Provider Nurse Practitioner Gerontology | DX: N39.41 Urge incontinence (principal); G20 Parkinson's disease | CPT/HCPCS: 81003; 99214 ==

== ENCOUNTER 2020-12-10 00:49 | Outpatient (CLI) | payer MEDICARE, MEDICAID, SELFPAY ==
[2020-12-10 08:53] LABS: CREATININE 0.8 mg/dL (0.55-1.02)
--- NOTE | 2020-12-10 10:34 | DI.CT_ITS ---
Exam(s) CT CHEST/ABD/PEL W EXAM: CT CHEST/ABD/PEL W CLINICAL HISTORY: NIGHT SWEATS,R61,MOVEMENT DISORDER,G25.9. TECHNIQUE: Imaging Protocol: Axial computed tomography images with coronal and sagittal reformatted images were created and reviewed CONTRAST MATERIAL: Intravenous: Omnipaque 350 Contrast volume:100 ml Oral: None COMPARISON: CT ABD PELVIS WITH CONTRAST from 02/06/2010 CT ABD PELVIS WITH CONTRAST from 02/06/2010 MR MRI - LUMBAR SPINE WO CONTRAST from 10/11/2011 CR,RF BARIUM SWALLOW W PA LAT CXR from 11/10/2014 CR XR CHEST 2V PA LATERAL from 06/18/2018 RF RF MODIFIED SPEECH BA SWALLOW from 02/24/2020 FINDINGS: CHEST: LUNGS: There are mild increased markings in the medial aspect of the posterior basal segment of the l eft lower lobe which were not present 2009. Benign appearance. Somewhat similar to findings in the opposite-right lung base which are chronic and were evident in 2009. No associated pleural effusions . There are no neoplastic appearing lung nodules. No significant focal findings in the trachea and mainstem bronchi. Esophagus appears somewhat dilated. MEDIASTINUM: There is no hilar nor mediastinal adenopathy. No axillary adenopathy no supraclavicular adenopathy.The thyroid gland is enlarged and contains multiple nodules. One of these nodules is exop hytic off the lateral aspect of the right thyroid lobe measuring 1.4 x 1.3 cm. The left thyroid lobe extends posteriorly to the level of the esophagus. Left thyroid lobe also contains nodules. CARDIAC: Heart size upper normal.No pericardial effusion. Caliber of the thoracic aorta is upper nor mal. No dissection. OSSEOUS: T8 compression fracture noted, not acute in appearance. Approximately 50 percent height los s. 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 No compression fracture at this level. This hemangi [place] was evident on lumbar spine MRI of September 2011.. ABDOMEN: There is no ascites. LIVER: No focal hepatic lesions. There is mild dilatation of intrahepatic ducts. CBD diameter is al so dilated at 10 millimeters. GALLBLADDER/BILIARY: No obvious gallbladder pathology. PANCREAS: There is no obvious pancreatic mass. However, the pancreatic duct is slightly prominent at the level of the head and neck, measuring 4.5 millimeters. Exhibits normal diameter in the distal b robert and tail. There is no obvious pancreatic head mass. The uncinate process exhibits normal triang ular configuration. There is in the no lymphadenopathy in this region. SPLEEN: Spleen is not enlarged. There are no intrasplenic lesions. Splenic and portal veins are zuleta nt. ADRENALS: There are no significant adrenal masses. KIDNEYS: There is a benign cyst in the left kidney measuring 3.5 x 2.7 cm. No other significant foca l renal findings. No calculi. No hydronephrosis.. No cysts evident. ABDOMINAL AORTA: Abdominal aorta is not enlarged. LYMPH NODES: There is no retroperitoneal nor paraaortic adenopathy. ABDOMINAL WALL: No evidence of significant anterior abdominal wall nor inguinal hernia. GI: There is no evidence of bowel obstruction. PELVIS: LYMPH NODES: There is no intrapelvic nor inguinal adenopathy. GI: No evidence of appendicitis.No evidence of sigmoid diverticulitis. URINARY BLADDER: Collapsed and therefore not able to be evaluated. REPRODUCTIVE: Uterus unremarkable. There appears to be a cyst in left ovary measuring 1.5 x 1.5 cm. Right ovary unremarkable. OSSEOUS: No significant osseous lesions. IMPRESSION: 1. Multiple thyroid nodules, including an exophytic 1.4 cm nodule off the right thyroid lobe. Recomm end thyroid ultrasound. 2. Mild increased markings in the lung bases. No confluent infiltrates. No pleural effusions. No i ntrathoracic nor axillary adenopathy. 3. No obvious gallbladder pathology. However, the CBD and intrahepatic ducts are dilated, as is the pancreatic duct. No obvious pancreatic head mass. No radiopaque calculi evident within lower CBD. Correlation with blood work recommended. 4. Small cyst in left ovary measuring 15 x 15 millimeters. No free fluid 5. Benign 3.5 cm cyst in the left kidney. RADIATION DOSE DELIVERED: 1,226.55mGy.cm Total DLP DATA REPOSITORY: All CT scans at this facility are submitted to the National Radiology Data Registry (NRDR) Dose Index Registry (DIR) with the [employer] (ACR). RADIATION OPTIMIZATION: All CT scans at this facility use at least one of these dose optimization te chniques: automated exposure control; mA and/or kV adjustment per patient size (includes targeted exa ms where dose is matched to clinical indication); or iterative reconstruction.
[2020-12-10] MEDS: Omnipaque 350 MG/ML 100 ML BTL IJ (13:13)
[2020-12-10] MEDS: Omnipaque 350 MG/ML 50 ML BTL IJ (13:14)
[2020-12-10] MEDS: Breeza Beverage 473 ML BTL PO (13:15)
== END 2020-12-10 01:09 ==
PROVIDERS: PCP Family Medicine; Visit Provider Family Medicine
DX: R61 Generalized hyperhidrosis (principal); G25.9 Extrapyramidal and movement disorder, unspecified; Z01.818 Encounter for other preprocedural examination; E04.2 Nontoxic multinodular goiter; N83.202 Unspecified ovarian cyst, left side; N28.1 Cyst of kidney, acquired
CPT/HCPCS: 74177; 71260; 82565; J3490; Q9967

== ENCOUNTER 2020-12-18 00:59 | Outpatient (CLI) | payer MEDICARE, MEDICAID, SELFPAY ==
[2020-12-18 13:52] LABS: Source Nasal/Nares
[2020-12-18 22:15] LABS: COVID-19 PCR Negative (Negative)
== END 2020-12-18 01:00 | disposition home or self-care (01) ==
LOC: LBO 00:59
PROVIDERS: Urology; PCP Family Medicine; Visit Provider Nurse Practitioner Gerontology
DX: Z20.822 Contact with and (suspected) exposure to COVID-19 (principal); Z01.818 Encounter for other preprocedural examination
CPT/HCPCS: 87635

== ENCOUNTER 2020-12-21 05:58 | Day surgery (SDC) | payer MEDICARE, MEDICAID, SELFPAY ==
[2020-12-21 06:31] VITALS: BP 128/79; PULSE 68; RESP 16; TEMP 36.3; O2SAT 98
[2020-12-21] MEDS: Lactated Ringers 1,000 ML 80 ML IV (06:40)
--- NOTE | 2020-12-21 06:58 | W.PM.HP.N ---
Date of service: 12/21/20 Time of Service: 06:58 Assessment and Plan Assessment and plan (1) Urge incontinence: Status: Acute (2) OAB (overactive bladder): Status: Acute Assessment and plan: She has failed first line therapies such as behavioral modification, anticholinergics and beta3 agonists. We will move forward with an injection of Botox into the detrusor. We discussed potential side effects such as bleeding, infection and retention. History of Present Illness History of Present Illness Chief Complaint: Uregency incontinence due to overactive bladder Narrative: Alyson is a 75-year old female with history of urinary urge incontinence. She also suffers from urinary frequency. She initially had oxybutynin for a treatment by her PCP but was having elevated PVR and constipation. We asked that she stop the medication. Constipation then resolved. We discussed alternatives at our previous visits such as using Myrbetriq or having Botox done. We elected to start her on Myrbetriq. She comes in today for f/u on how the medication is working for her. She reports that the use of Myrbetriq has not helped with her urinary urge incontinence nor frequency. She again notes that she was on her water pill and was having these urinary symptoms prior to being on this medication. She finds that she will have the urge sensation to void but is unable to make up the bathroom in time. She does find her frequency of small voids to be also annoying. She is currently not having gross hematuria, dysuria, flank pain or suprapubic discomfort. She feels that she can empty well. She notes that she recently met with her neurologist in regards to her Parkinson's and discussed this matter and felt that this was not related to her neurologic disease. We noted that her slowness of movement with her Parkinson can actually be related to not making to the bathroom in time and that timed voiding is helpful. She then actually notes that she is in the bathroom frequently every hour. Review of Systems Narrative: No fevers or chills No vision change No diabetes or thyroid dysfunction No shortness of breath, cough or hemoptysis No chest pain or palpitations Hx GERD. No hepatitis, ulcers, jaundice, diarrhea or constipation Hx Parkinsons. No seizures, strokes No bleeding disorders or anemia Chronic fibromyalgia and back pain FORMERLY [facility], 1928–1983 Medical History (Updated 12/21/20 @ 06:58 by Emanuel Garcia MD) Actinic keratosis Adenomatous colon polyp Anxiety Chronic back pain Depression Dissociative identity disorder Dysphagia Esophageal stricture Essential tremor Fibromyalgia Glaucoma History of substance abuse HTN (hypertension) Hypercholesterolemia Hypomagnesemia Lactose intolerance Lewy body dementia OAB (overactive bladder) Parkinsons PTSD (post-traumatic stress disorder) Urge incontinence Urinary incontinence Surgical History (Updated 12/21/20 @ 06:21 by Hanny Marrero) EGD - MAC (01/16/15) DR. HAMLET THOMAS, with dilatation EGD - MAC (02/10/16) DR. HAMLET THOMAS, with dilatation History of back surgery History of esophagogastroduodenoscopy (EGD) 11/09/18 History of esophagogastroduodenoscopy (EGD) (~05/08/20) History of surgery on arm Hx of colonoscopy Social History Smoking/Tobacco Use Status: Former Tobacco Use Quit Date: 03/20/75 Smoking risk assessment performed?: Yes Alcohol Intake: never Drug use: Daily Substance use type: marijuana Details: Medical marijuana taken daily in multiple forms per Pt; patient reports using afternoon 12/20, smoked. Do you feel safe at home: Yes Do you feel safe in your relationship?: Yes Meds Allergies and Home Medications Allergies Allergy/AdvReac Type Severity Reaction Status Date / Time atorvastatin Allergy Intermediate Verified 12/21/20 06:21 lisinopril AdvReac Intermediate cough Verified 12/21/20 06:21 simvastatin AdvReac Intermediate overall Verified 12/21/20 06:21 body ache Sulfa (Sulfonamide AdvReac Intermediate my Verified 12/21/20 06:21 Antibiotics) symptoms got worse Home Medications Medication Instructions Recorded Confirmed Type Cabrera 1 drp OPHTHALMIC (EYE) BID 06/18/18 12/21/20 History bupropion HCl [Wellbutrin SR] 150 mg PO BID 06/18/18 12/21/20 History cyanocobalamin (vitamin B-12) 1,000 mcg PO DAILY 06/18/18 12/21/20 History [Vitamin B-12] gabapentin 100 mg PO BID 06/18/18 12/21/20 History magnesium L-lactate 84 mg PO HS 06/18/18 12/21/20 History naproxen 500 mg PO BID 06/18/18 12/21/20 History diltiazem HCl 360 mg 360 mg PO DAILY 09/18/18 12/21/20 History tablet,extended release 24 hr cholecalciferol (vitamin D3) 125 5,000 unit PO DAILY 10/05/18 12/21/20 History mcg (5,000 unit) tablet polyethylene glycol 3350 17 gram 17 g PO DAILY PRN packet 10/05/18 12/21/20 History oral powder packet carbidopa-levodopa 1 tab PO TID 11/07/18 12/21/20 History albuterol sulfate 90 mcg/actuation 2 puff INHALATION Q6H PRN 04/23/20 12/21/20 History aerosol inhaler hydrocodone 10 mg-acetaminophen 1 tab PO Q8H PRN 04/23/20 12/21/20 History 325 mg tablet mirtazapine 15 mg tablet 15 mg PO QHS 04/23/20 12/21/20 History sennosides 8.6 mg tablet 8.6 mg PO BID 04/23/20 12/21/20 History pantoprazole [Protonix] 40 mg PO DAILY #90 tab 05/08/20 12/21/20 Rx sucralfate [Carafate] 1 g PO QHS #180 tab 05/08/20 12/21/20 Rx donepezil 10 mg tablet 10 mg PO DAILY 06/17/20 12/21/20 History fluticasone propionate 50 1 spray INTRANASAL BID PRN 11/10/20 12/21/20 History mcg/actuation nasal spray,suspension losartan 100 1 tab PO DAILY 11/10/20 12/21/20 History mg-hydrochlorothiazide 25 mg tablet Exam Const General: cooperative and comfortable Neck Neck: supple Resp Effort & Inspection: normal respiratory effort Auscultation: clear to auscultation bilaterally Cardio Rate: regular rate Rhythm: regular rhythm GI Palpation: soft and no masses Neuro General: patient alert, patient awake and patient oriented x3 Results Last Vital Signs Temp 36.3 C L 12/21/20 06:31 Pulse 68 12/21/20 06:31 Resp 16 12/21/20 06:31 BP 128/79 12/21/20 06:31 Pulse Ox 98 12/21/20 06:31
--- NOTE | 2020-12-21 07:04 | W.ANESPRE ---
General Info Date of Service Date Performed: 12/21/20 Height: 5 ft 2 in Weight: 60.6 kg Body Mass Index (BMI): 24.4 Surgical Procedure: Operation Date: 12/21/20 07:40 Proposed Procedures Side Surgeon p Cystoscopy/Injection BOTOX Emanuel Garcia MD Meds Allergies and Home Medications Allergies Allergy/AdvReac Type Severity Reaction Status Date / Time atorvastatin Allergy Intermediate Verified 12/21/20 06:21 lisinopril AdvReac Intermediate cough Verified 12/21/20 06:21 simvastatin AdvReac Intermediate overall Verified 12/21/20 06:21 body ache Sulfa (Sulfonamide AdvReac Intermediate my Verified 12/21/20 06:21 Antibiotics) symptoms got worse Home Medication Medication Instructions Recorded Lorenzoigan 1 drp OPHTHALMIC (EYE) BID 06/18/18 bupropion HCl [Wellbutrin SR] 150 mg PO BID 06/18/18 cyanocobalamin (vitamin B-12) 1,000 mcg PO DAILY 06/18/18 [Vitamin B-12] gabapentin 100 mg PO BID 06/18/18 magnesium L-lactate 84 mg PO HS 06/18/18 naproxen 500 mg PO BID 06/18/18 diltiazem HCl 360 mg 360 mg PO DAILY 09/18/18 tablet,extended release 24 hr cholecalciferol (vitamin D3) 125 5,000 unit PO DAILY 10/05/18 mcg (5,000 unit) tablet polyethylene glycol 3350 17 gram 17 g PO DAILY PRN packet 10/05/18 oral powder packet carbidopa-levodopa 1 tab PO TID 11/07/18 albuterol sulfate 90 mcg/actuation 2 puff INHALATION Q6H PRN 04/23/20 aerosol inhaler hydrocodone 10 mg-acetaminophen 1 tab PO Q8H PRN 04/23/20 325 mg tablet mirtazapine 15 mg tablet 15 mg PO QHS 04/23/20 sennosides 8.6 mg tablet 8.6 mg PO BID 04/23/20 pantoprazole [Protonix] 40 mg PO DAILY #90 tab 05/08/20 sucralfate [Carafate] 1 g PO QHS #180 tab 05/08/20 donepezil 10 mg tablet 10 mg PO DAILY 06/17/20 fluticasone propionate 50 1 spray INTRANASAL BID PRN 08/24/21 mcg/actuation nasal spray,suspension losartan 100 1 tab PO DAILY 11/10/20 mg-hydrochlorothiazide 25 mg tablet Current Visit Medications: Current Medications Generic Name Dose Route Start Last Admin Trade Name Shailesh PRN Reason Stop Dose Admin OnabotulinumtoxinA 200 units/ 0 units 12/21/20 06:00 Sodium Chloride 20 ml IJ 12/21/20 23:59 DIRECTED MANDY Ringer's Solution 1,000 mls @ 80 mls/hr 12/21/20 06:00 IV 01/17/21 23:59 INFUSION MANDY Cefazolin Sodium/Dextrose 1 gm in 50 mls @ 100 mls/hr 12/21/20 06:00 Ancef Duplex IVPB 12/21/20 18:00 PREOP MANDY IV Miscellaneous Supplies 1 each 12/21/20 06:00 Iv Access IV 01/17/21 23:59 DIRECTED MANDY Sodium Chloride 0 ml 12/21/20 06:00 Normal Saline Flush 10 Ml Syr IV 01/17/21 23:59 PRN PRN Sodium Chloride 0 ml 12/21/20 06:00 Normal Saline 10 Ml Vial IJ 01/17/21 23:59 DIRECTED PRN Sterile Water 0 ml 12/21/20 06:00 Water,Injection,Sterile 10 Ml Vial IJ 01/17/21 23:59 DIRECTED PRN PFSH Active Problems Active Problems: Problem Status Onset Code OAB (overactive bladder) N32.81 Spondylosis of lumbar region without myelopathy or radiculopathy M47.816 Myalgia and myositis [id number] Unspecified disorder of ear, bilateral H93.93 Esophagitis K20.90 Former smoker Z87.891 Preop testing Z01.818 Cannabis use, uncomplicated F12.90 Hiatal hernia K44.9 Bile reflux gastritis K29.60 Urge incontinence N39.41 Parkinsons G20 Fibromyalgia M79.7 Lewy body dementia G31.83, F02.80 Lactose intolerance E73.9 Esophageal stricture K22.2 Dissociative identity disorder F44.81 Dysphagia R13.10 Medical History Medical History (Updated 12/21/20 @ 06:58 by Emanuel Garcia MD) Actinic keratosis Adenomatous colon polyp Anxiety Chronic back pain Depression Dissociative identity disorder Dysphagia Esophageal stricture Essential tremor Fibromyalgia Glaucoma History of substance abuse HTN (hypertension) Hypercholesterolemia Hypomagnesemia Lactose intolerance Lewy body dementia OAB (overactive bladder) Parkinsons PTSD (post-traumatic stress disorder) Urge incontinence Urinary incontinence Surgical History Surgical History (Updated 12/21/20 @ 06:21 by Hanny Marrero) EGD - MAC (01/16/15) DR. HAMLET THOMAS, with dilatation EGD - MAC (02/10/16) DR. HAMLET THOMAS, with dilatation History of back surgery History of esophagogastroduodenoscopy (EGD) 11/09/18 History of esophagogastroduodenoscopy (EGD) (~05/08/20) History of surgery on arm Hx of colonoscopy Tobacco Smoking/Tobacco Use Status: Former Tobacco Use Alcohol Alcohol Intake: never Substance Use Substance use: Daily Substance use type: marijuana Details: Medical marijuana taken daily in multiple forms per Pt; patient reports using afternoon 12/20, smoked. Vital Signs and Lab Results Vital Signs Most Recent Vital Signs in EMR: Most Recent Vital Signs Temp Pulse Resp BP Pulse Ox 36.3 C L 68 16 128/79 98 12/21/20 06:31 12/21/20 06:31 12/21/20 06:31 12/21/20 06:31 12/21/20 06:31 Lab Results Blood Type / Crossmatch: No Data to Display Complete Blood Count: No Data to Display Complete Metabolic Panel: Creatinine 0.8 mg/dL (0.55-1.02) 12/10/20 08:35 12/10/20 Estimated GFR/1.73 m2 >= 60.00 (mL/min/1.73m2) 12/10/20 08:35 12/10/20 Liver Function Panel: No Data to Display Coagulation Panel: No Data to Display Cardiac Panel: No Data to Display Arterial Blood Gas: No Data to Display Venous Blood Gas: No Data to Display Pancreas Panel: No Data to Display Thyroid Panel: No Data to Display Infectious Disease: Coronavirus (COVID-19)(PCR) Negative (Negative) 12/18/20 11:02 12/18/20 Coronavirus 2019 Source Nasal/Nares 12/18/20 11:02 12/18/20 Blood Cultures: No Data to Display Toxicology Panel: No Data to Display Anesthesia Assessment and Plan Anesthesia History Personal History: No History of Anesthesia Complications Family History: No Family History of Anesthesia Complications Exercise Tolerance Exercise Tolerance: Metabolic Equivalents>4 Pertinent Negatives Pertinent Negatives: No Symptoms of GERD (No active symptoms today, occassionally takes TUMS) Cardiac & Pulmonary Exam Cardiac Exam: Heart Murmur Present Pulmonary Exam: Clear Bilateral Breath Sounds Airway Exam Known Difficult Airway: No Mallampati Class: 2 Mouth Opening: Normal (> 3cm) Thyromental Distance: Greater than 3 cm Neck Range of Motion: Full ROM Neck Circumference: Normal Teeth Condition: Loose or Chipped ASA Classification ASA Score: ASA 3 Emergency Case?: No NPO Status NPO Status: NPO Clears >2 hours, Solids >8 hours Anesthesia Plan Resuscitation Status: Full Code Anesthesia Technique: General Anesthesia Airway Planned: Natural Airway Monitors Used: Standard Monitors
[2020-12-21 07:15] VITALS: BMI 24.4
[2020-12-21] MEDS: ceFAZolin 1 GM/50 ML BAG IVPB (07:33)
[2020-12-21] MEDS: Lidocaine 2% Jelly 6 ML SYR (07:51)
--- NOTE | 2020-12-21 07:59 | W.PM.DSUDISC ---
Discharge Plan Disposition Patient Disposition: HOME Condition: Stable Discharge Details Reason For Visit: overactive bladder/urgency incontinence Attending Provider: Emanuel Garcia Primary Care Provider: Rosario Reed Home Meds and New Rx's Prescriptions: No Action diltiazem HCl [Cardizem LA] 360 mg tablet extended release 24 hr 360 mg PO DAILY RF: 0 losartan-hydrochlorothiazide 100-25 mg tablet 1 tab PO DAILY RF: 0 polyethylene glycol 3350 [Miralax] 17 gram powder in packet 17 g PO DAILY PRNRF: 0 sennosides [Natural Senna Laxative] 8.6 mg tablet 8.6 mg PO BID RF: 0 mirtazapine 15 mg tablet 15 mg PO QHS RF: 0 hydrocodone-acetaminophen 10-325 mg tablet 1 tab PO Q8H PRNRF: 0 albuterol sulfate [ProAir HFA] 90 mcg/actuation HFA aerosol inhaler 2 puff inhalation Q6H PRNRF: 0 donepezil [Aricept] 10 mg tablet 10 mg PO DAILY RF: 0 bupropion HCl [Wellbutrin SR] 150 mg Tablet Sustained-Release 12 Hr 150 mg PO BID RF: 0 cyanocobalamin (vitamin B-12) [Vitamin B-12] 1,000 mcg Tablet 1,000 mcg PO DAILY RF: 0 gabapentin 100 mg Capsule 100 mg PO BID RF: 0 naproxen 500 mg Tablet 500 mg PO BID RF: 0 magnesium L-lactate 84 mg Tablet Extended Release 84 mg PO HS RF: 0 Combigan 0.2-0.5 % Drops 1 drp OPHTHALMIC (EYE) BID RF: 0 cholecalciferol (vitamin D3) [Vitamin D3] 5,000 unit tablet 5,000 unit PO DAILY RF: 0 fluticasone propionate 50 mcg/actuation spray,suspension 1 spray INTRANASAL BID PRNRF: 0 carbidopa-levodopa 25-100 mg Tablet 1 tab PO TID RF: 0 pantoprazole [Protonix] 40 mg tablet,delayed release (DR/EC) 40 mg PO DAILY Qty: 90 RF: 4 sucralfate [Carafate] 1 gram tablet 1 g PO QHS Qty: 180 RF: 4 Discharge Instructions Additional Instructions: no appt needed, but ask patient to call in @ 1 week with progress report Activity:: Activity as Tolerated Shower/Bathe:: 24 hours Diet:: As Tolerated Discharge Orders Discharge Orders: Discharge Order (Routine); Ordered 12/21/20 Ordered By: Emanuel Garcia Discharge Data Discharge Comment: pt must void prior to discharge DS: Diagnosis Discharge Diagnosis (1) Urge incontinence: Status: Acute (2) OAB (overactive bladder): Status: Acute
--- NOTE | 2020-12-21 08:02 | W.PM.OP ---
Date of service: 12/21/20 Time of Service: 08:02 Operative Note Operative Note DATE OF PROCEDURE: 12/21/20 PRE-OP DIAGNOSIS: Urgency incontinence due to overactive bladder POST-OP DIAGNOSIS: same PROCEDURE: cystoscopy with transurethral injection of Botox into detrusor SURGEON: Emanuel Garcia ANESTHESIA TYPE: Local By Surgeon and General:No Airway Refer to Anesthesia Record ESTIMATED BLOOD LOSS: 0 PATHOLOGY: none sent COMPLICATIONS: None Patient was transported to: same day Patient's condition: stable Implants: 200 Units Botox Indications: Is a 75-year-old woman who has a history of urinary urgency, frequency and urgency incontinence due to an overactive bladder. She has failed behavioral modification along with anticholinergics and beta 3 agonists. She presents for Botox injection into her detrusor muscle She does have a history of Parkinson's and has such has a neurogenic component to her incontinence, so we are using 200 units of Botox for our injection. Findings: Normal-appearing bladder Procedure Description: Patient was brought to the operating room on 12/21/2020. She was given a dose of preoperative antibiotics. After successful induction of general anesthesia without intubation, she was placed in the dorsal lithotomy position. Her genitalia was prepped and draped. 2% Xylocaine jelly was instilled into the urethra to act as a local anesthetic. A 20 [place] urethrotome sheath was then passed through the urethra into the bladder. The urethra and bladder were inspected using a 30 degree lens. Both ureteral orifices appeared normal with no blood coming from either side. The bladder mucosa was slightly erythematous thematous but no papillary or nodular lesions were seen. We then injected a total of 200 units of Botox into the detrusor muscle. We had mixed the Botox in 20 mL of saline and injected 1 mL in 20 different patients. We used a grid pattern of 5 injection sites horizontally and 4 rows vertically. We avoided the trigone and bladder neck. The bladder was then emptied and the scope was removed. She tolerated this procedure well.
[2020-12-21 08:06] VITALS: BP 118/67; PULSE 59; RESP 16; TEMP 36; O2SAT 96
[2020-12-21 08:30] VITALS: BP 136/70; PULSE 62; RESP 16; TEMP 36; O2SAT 95
[2020-12-21] MEDS: Phenazopyridine 200 MG TAB PO (08:41)
--- NOTE | 2020-12-21 09:56 | W.ANESPOSTOP ---
Postoperative Evaluation Date, Time and Location Date Performed: 12/21/20 Time Performed: 08:10 Patient Location: Day Surgery Unit Vital Signs Most Recent Imported Vital Signs: Most Recent Vital Signs Temp Pulse Resp BP Pulse Ox 36 C L 62 16 136/70 95 12/21/20 08:30 12/21/20 08:30 12/21/20 08:30 12/21/20 08:30 12/21/20 08:30 Pain Score Most Recent Pain Score: Most Recent Pain Score Pain Level 0 12/21/20 08:30 Assessment Mental Status: Awake (Alert & Oriented to Patient Baseline) Airway and Respiratory Function: Patent airway with normal (patient baseline) respiratory exam Cardiovascular Function: Hemodynamically Stable Hydration Status: Adequately Hydrated Nausea & Vomiting: No Nausea or Vomiting Pain: Pt. Denies Any Pain Peripheral Nerve Block: Patient did not receive a nerve block
== END 2020-12-21 09:04 | disposition home or self-care (01) ==
PROVIDERS: PCP Family Medicine; Visit Provider Urology
PROC: (CPT 52287; principal; 2020-12-21 07:30)
DX: N32.81 Overactive bladder (principal); N39.41 Urge incontinence; M79.7 Fibromyalgia; G20 Parkinson's disease
CPT/HCPCS: 52287; J0585; 51715; J0690; J1885; J2001

== ENCOUNTER → 2020-12-24 12:46 | Outpatient (BNVA) | payer MEDICARE, MEDICAID, SELFPAY | PROVIDERS: PCP Family Medicine; Referring Provider Family Medicine; Visit Provider Nurse Practitioner Gerontology | DX: N32.81 Overactive bladder (principal); N39.0 Urinary tract infection, site not specified; Z98.890 Other specified postprocedural states | CPT/HCPCS: 81003; 99213 ==

== ENCOUNTER 2020-12-24 14:51 | Outpatient (REF) | payer MEDICARE, MEDICAID, SELFPAY | END 2020-12-24 14:52 | disposition home or self-care (01) | LOC: LBN 14:51 | PROVIDERS: PCP Family Medicine; Visit Provider Nurse Practitioner Gerontology | DX: N39.0 Urinary tract infection, site not specified (principal) | CPT/HCPCS: 87086 ==

== ENCOUNTER 2021-01-29 00:54 | Outpatient (CLI) | payer MEDICARE, MEDICAID, SELFPAY ==
--- NOTE | 2021-01-29 13:00 | DI.US_ITS ---
Exam(s) US THYROID EXAM: US THYROID CLINICAL HISTORY: MULTIPLE THYROID NODULES E04.2 TECHNIQUE: Ultrasound performed using standard protocol. COMPARISON: [facility] from 02/28/2017 FINDINGS: Thyroid ultrasound was performed according to the usual protocol. Right lobe of the thyroid measures 56 x 20 x 21 millimeters. Left lobe measures 49 x 17 x 20 millimeters. The isthmus is about 3 mill imeters in thickness. No adenopathy identified in the cervical region. Thyroid parenchyma is heterogeneous throughout. There are multiple small thyroid nodules. The nodul es were evaluated for tie rads classification. There is a 16 millimeter in diameter TI-RADS category 4 lesion in the inferior portion of the right thyroid lobe, this is of mixed echogenicity and is iso echoic to surrounding parenchyma. Margins are smooth and this is wider than tall. There are punctat e intralesional echogenic foci. Additional nodules are seen bilaterally, another TR 4 category lesion is seen in the superior pole of the right thyroid lobe measuring 11 millimeters in diameter, this may be followed with repeat ultras ound in 12 months. IMPRESSION: There is a 16 millimeter in diameter TI-RADS category 4 lesion of the right thyroid lobe inferiorly a s described above, fine needle aspiration is recommended due to size greater than 15 millimeters. DATA REPOSITORY:
== END 2021-01-29 01:14 ==
PROVIDERS: PCP Family Medicine; Visit Provider Family Medicine
DX: E04.2 Nontoxic multinodular goiter (principal)
CPT/HCPCS: 76536

== ENCOUNTER 2021-03-01 02:03 | Outpatient (CLI) | payer MEDICARE, MEDICAID, SELFPAY ==
--- NOTE | 2021-03-01 | DI.MRI_ITS ---
Exam(s) MR LUMBAR SPINE WO EXAM: MR LUMBAR SPINE WO CLINICAL HISTORY: HERNIATION LUMBAR DISC WITH RADICULOPATHY, M51.16, LUMBAR SPONDYLOSIS,. TECHNIQUE: Multiplanar multisequence MRI of the Lumbar spine was performed. COMPARISON: MR MRI - LUMBAR SPINE WO CONTRAST from 10/11/2011 MR MRI - LUMBAR SPINE WO CONTRAST from 10/11/2011 FINDINGS: Conus medullaris is at normal level. There is no evidence of conus mass nor subjacent clumping of in trathecal nerve roots to suggest arachnoiditis. The distal thecal sac appears unremarkable.There is no evidence of Tarlov intrasacral cysts nor other significant findings within the sacral canal Bones:There are no fractures nor ominous osseous lesions in the lumbar vertebral bodies and visualize d sacrum. However, the amount of degenerative scoliosis convex right has increased. The epicenter s coliosis at L3-4 level where there is advanced narrowing left side of this disc space. With respect to the individual levels... T12-L1: Relatively preserved disc height. There is asymmetric annular bulging on the right side, sli ghtly more than previous. This slightly indents the right side of the thecal sac but not the spinal cord. There is no prominent central canal stenosis. No prominent foraminal stenosis on either side at this level. No prominent facet arthropathy. L1-2: There is relatively preserved disc height at this level with some narrowing on the right side. Asymmetric bulging in the floor of the exiting right neural foramen is noted but without prominent f oraminal stenosis.No central canal stenosis. No prominent foraminal stenosis L2-3: This level exhibits advanced disc space narrowing, more so on the left than the right side and there also left-sided osteophytes, similar to the L3-4 level. At this level there is some annular bu lging into the floor of the exiting right neural foramen again noted but without significant foramina l stenosis. Mild foraminal stenosis on the left side noted which is mostly due to the advanced disc height loss at this level. Central canal dimensions are lower normal. Mild facet arthropathy. L3-4: This level also exhibits advanced narrowing, more so on the left side of this disc space than t he right side. There has been significant height loss in this disc space when compared to the prior MRI study of 2011. There is now an element of central spinal canal stenosis (mild-moderate). Althou gh there is no disc herniation at this level, there is annular bulging and this, together with short AP dimensions the pedicles results in moderate central canal stenosis. There is no true foraminal st enosis on the right side where there is relative preservation of disc height. There is, however, sev ere vertical foraminal stenosis on the left side at this level. This represents significant change f rom the prior study of 2011. Moderate bilateral facet arthropathy L4-5: This level exhibits some decreased disc height loss on the right side of this disc space. Ther e is moderate-severe central canal stenosis at this level. This is related to broad annular bulging, short AP dimensions of the pedicles and degenerative facet joint arthropathy which has increased fro m the prior study. In addition, there is now an element of disc protrusion and extension subligament ous under the posterior longitudinal ligament for a dimension of 2 millimeters cephalad to the space, tracking behind the L4 vertebral body. There are also moderate degenerative changes facet joints at this level. Exiting left neural foramen is patent. There is mild narrowing of the exiting right ne ural foramen, mostly due to the disc height loss on the right side. L5-S1: This disc level exhibits only right-sided disc height loss. There is mild anterolisthesis of L5 upon S1 now evident and this appears to be related to the advanced facet degenerative changes, mor e prominent facet arthropathy on the right than the left side. There is mild central canal stenosis at this level due to the annular bulging. With respect to for foraminal stenosis, this is moderate-s evere on the right side and no foraminal stenosis on the left side. Soft tissues: There is a cyst in the left kidney which measures 4 cm. Smaller cyst in the lower andra e left kidney measures 1 cm. IMPRESSION: 1. Compared to the prior MRI of September 2011 there has been deterioration, most evident at L3-4 level bu t also at other levels, as described individually above. Most significant central spinal canal steno sis is presently at the L3-4 level. There is asymmetric bilateral foraminal stenosis due to differen chariyt in height loss on the left versus right side of the intervertebral discs. At L3-4 level there is severe foraminal stenosis on the left side, without foraminal stenosis on the right side. Right-dada ed foraminal stenosis noted at L4-5 level and L5-S1 level. 2. 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 No lytic osseous lesions evident. DATA REPOSITORY:
== END 2021-03-01 02:23 ==
PROVIDERS: PCP Family Medicine; Visit Provider Nurse Practitioner
DX: M47.816 Spondylosis without myelopathy or radiculopathy, lumbar region (principal); M96.1 Postlaminectomy syndrome, not elsewhere classified; M51.16 Intervertebral disc disorders with radiculopathy, lumbar region; M48.061 Spinal stenosis, lumbar region without neurogenic claudication; D18.09 Hemangioma of other sites
CPT/HCPCS: 72148

== ENCOUNTER 2021-03-09 16:57 | Outpatient (REF) | payer MEDICARE, MEDICAID, SELFPAY ==
[2021-03-11 18:27] LABS: COVID-19 RT-PCR UVMMC Result Positive (Negative)
== END 2021-03-09 16:58 | disposition home or self-care (01) ==
LOC: LBN 16:57
PROVIDERS: PCP Family Medicine; Visit Provider Nurse Practitioner Family
DX: J02.9 Acute pharyngitis, unspecified (principal); Z20.822 Contact with and (suspected) exposure to COVID-19
CPT/HCPCS: U0003; 87070

== ENCOUNTER 2021-04-30 13:52 | Outpatient (REF) | payer MEDICARE, MEDICAID, SELFPAY ==
[2021-05-04 10:48] LABS: Codeine Negative ng/mL (Cutoff: 25); Dihydrocodeine 1110 ng/mL (Cutoff: 25); Hydrocodone 4820 ng/mL (Cutoff: 25); Hydromorphone 130 ng/mL (Cutoff: 25); Morphine Negative ng/mL (Cutoff: 25); Naloxone Negative ng/mL (Cutoff: 25); Norhydrocodone 3466 ng/mL (Cutoff: 25); Noroxycodone Negative ng/mL (Cutoff: 25); Noroxymorphone Negative ng/mL (Cutoff: 25); Opiates Interpretation Positive.
== END 2021-04-30 13:53 | disposition home or self-care (01) ==
LOC: NCHCN 13:52
PROVIDERS: PCP Family Medicine; Visit Provider Family Medicine
DX: M54.59 Other low back pain (principal); G89.29 Other chronic pain; F19.21 Other psychoactive substance dependence, in remission
CPT/HCPCS: 80361; 80362; 80365

== ENCOUNTER 2021-07-09 16:15 | Outpatient (REF) | payer MEDICARE, MEDICAID, SELFPAY ==
[2021-07-09 20:30] LABS: Abs Immature Grans 0.05 10^3/uL (0.0-0.06); Absolute Basophil Count 0.13 10^3/uL (0.0-0.2); Absolute Eosinophil Count 0.12 10^3/uL (0.0-0.7); Absolute Lymphocyte Count 2.29 10^3/uL (1.2-3.4); Basophils % 1.1; HCT 44.4 % (36.0-46.0); HGB 14.6 g/dL (11.2-15.7); Immature Grans % 0.4; Lymphocytes % 19.7; MCH 29.4 pg (27.0-33.0); MCHC 32.9 % (32.0-36.0); MCV 89.3 fL (80-95); MPV 10.4 fL (8.0-11.0); Monocytes % 9.1; Neutrophils % 68.7; Platelet Count 310 10^3/uL (130-400); RBC 4.97 10^6/uL (3.93-5.22); RDW 12.8 % (11.7-14.6)
[2021-07-09 20:32] LABS: Absolute Monocyte Count 1.06 10^3/uL (0.1-0.8); Absolute Neutrophil Count 7.97 10^3/uL (1.2-6.7)
[2021-07-09 20:38] LABS: ALT 14 U/L (14-59); AST 18 U/L (15-37); Albumin 3.9 g/dL (3.4-5.0); Alkaline Phosphatase 176 U/L (46-116); Anion Gap 6.7 mmol/L (3-11); BUN 21 mg/dL (7-18); Bilirubin, Total 0.4 mg/dL (0.2-1.0); CO2 31.3 mmol/L (21.0-32.0); Calcium 9.7 mg/dL (8.5-10.1); Chloride 103 mmol/L (98-107); Creatine Kinase 24 U/L (26-192); Glucose 107 mg/dL (74-106); Potassium 3.7 mmol/L (3.5-5.1); Sodium 141 mmol/L (136-145); Total Protein 6.8 g/dL (6.4-8.2)
[2021-07-09 20:45] LABS: ESR 21 mm/hr (0-30)
== END 2021-07-09 16:16 | disposition home or self-care (01) ==
LOC: NCHCN 16:15
PROVIDERS: PCP Family Medicine; Visit Provider Family Medicine
DX: M79.18 Myalgia, other site (principal)
CPT/HCPCS: 80053; 82550; 85652; 85025

== ENCOUNTER 2021-07-15 18:35 | Outpatient (REF) | payer MEDICARE, MEDICAID, SELFPAY ==
[2021-07-15 14:48] LABS: Abs Immature Grans 0.07 10^3/uL (0.0-0.06); Absolute Basophil Count 0.13 10^3/uL (0.0-0.2); Absolute Eosinophil Count 0.28 10^3/uL (0.0-0.7); Absolute Lymphocyte Count 2.75 10^3/uL (1.2-3.4); Absolute Monocyte Count 0.95 10^3/uL (0.1-0.8); Basophils % 1.2; Eosinophils % 2.6; HCT 42.4 % (36.0-46.0); HGB 13.8 g/dL (11.2-15.7); Immature Grans % 0.7; MCH 29.4 pg (27.0-33.0); MCHC 32.5 % (32.0-36.0); MCV 90 fL (80-95); MPV 10.5 fL (8.0-11.0); Neutrophils % 60.5; Platelet Count 297 10^3/uL (130-400); RBC 4.69 10^6/uL (3.93-5.22); RDW 13.2 % (11.7-14.6); RDW-SD 43.4 fL; WBC 10.58 10^3/uL (4.4-10.8)
[2021-07-15 14:55] LABS: Bilirubin Negative (Negative); Blood Negative (Negative); Clarity Turbid (Clear); Glucose Negative (Negative); Ketones Negative (Negative); Leukocyte Esterase Small (Negative); Nitrite Negative (Negative); Specific Gravity 1.025 (1.005-1.025); Urobilinogen 0.2 EU/dL (Up TO 0.2)
[2021-07-15 14:58] LABS: ALT 20 U/L (14-59); AST 24 U/L (15-37); Albumin 3.9 g/dL (3.4-5.0); Alkaline Phosphatase 177 U/L (46-116); Anion Gap 6.7 mmol/L (3-11); BUN 46 mg/dL (7-18); Bilirubin, Total 0.3 mg/dL (0.2-1.0); C-Reactive Protein 0.29 mg/dL (0.0-0.3); CO2 33.3 mmol/L (21.0-32.0); CREATININE 1.2 mg/dL (0.55-1.02); Calcium 9.4 mg/dL (8.5-10.1); Chloride 103 mmol/L (98-107); Estimated GFR 43.91 (mL/min/1.73m2); Glucose 94 mg/dL (74-106); Potassium 3.7 mmol/L (3.5-5.1); Sodium 143 mmol/L (136-145); Total Protein 6.7 g/dL (6.4-8.2)
[2021-07-15 15:13] LABS: C & S Indicated? C&S Done As Ordered; Crystals Many Amorphous HPF (Negative)
== END 2021-07-15 18:36 | disposition home or self-care (01) ==
LOC: NCHCN 18:35
PROVIDERS: PCP Family Medicine; Visit Provider Family Medicine
DX: L03.90 Cellulitis, unspecified (principal)
CPT/HCPCS: 80053; 87077; 81003; 81015; 85025; 86140; 87086; 87186

== ENCOUNTER 2021-07-19 09:21 | Outpatient (REF) | payer MEDICARE, MEDICAID, SELFPAY ==
[2021-07-19 14:28] LABS: Abs Immature Grans 0.06 10^3/uL (0.0-0.06); Absolute Basophil Count 0.11 10^3/uL (0.0-0.2); Absolute Lymphocyte Count 1.96 10^3/uL (1.2-3.4); Absolute Monocyte Count 0.78 10^3/uL (0.1-0.8); Absolute Neutrophil Count 8.38 10^3/uL (1.2-6.7); Eosinophils % 1.7; HCT 42.9 % (36.0-46.0); HGB 13.8 g/dL (11.2-15.7); Immature Grans % 0.5; Lymphocytes % 17.1; MCH 29.2 pg (27.0-33.0); MCHC 32.2 % (32.0-36.0); MCV 91 fL (80-95); MPV 10.1 fL (8.0-11.0); Monocytes % 6.8; Neutrophils % 72.9; Platelet Count 350 10^3/uL (130-400); RBC 4.72 10^6/uL (3.93-5.22); RDW-SD 43.4 fL; WBC 11.49 10^3/uL (4.4-10.8)
[2021-07-19 14:29] LABS: Bilirubin Negative (Negative); Blood Negative (Negative); Clarity Sl Cloudy (Clear); Glucose 500 mg/dL (Negative); Ketones Negative (Negative); Leukocyte Esterase Small (Negative); Nitrite Negative (Negative); Specific Gravity >= 1.030 (1.005-1.025); Urobilinogen 0.2 EU/dL (Up TO 0.2); pH 5.5 (5-8)
[2021-07-19 14:35] LABS: Bacteria Few HPF (Negative); C & S Indicated? No/Sq. Contamination; Casts Negative LPF (Negative); Crystals Negative HPF (Negative); Epithelial Cells Many HPF (Negative); Mucus Negative (Negative); RBC Negative HPF (0-2)
[2021-07-19 16:11] LABS: ALT 20 U/L (14-59); AST 18 U/L (15-37); Albumin 3.8 g/dL (3.4-5.0); Alkaline Phosphatase 166 U/L (46-116); Anion Gap 9.7 mmol/L (3-11); BUN 20 mg/dL (7-18); Bilirubin, Total 0.3 mg/dL (0.2-1.0); CO2 31.3 mmol/L (21.0-32.0); CREATININE 0.9 mg/dL (0.55-1.02); Calcium 9.5 mg/dL (8.5-10.1); Chloride 105 mmol/L (98-107); Glucose 151 mg/dL (74-106); Sodium 146 mmol/L (136-145); TSH (W/Ref FT4) 0.78 uIU/mL (0.36-3.74); Total Protein 6.7 g/dL (6.4-8.2)
[2021-07-19 16:14] LABS: Vitamin B12 > 2000 pg/mL (193-986)
== END 2021-07-19 09:22 | disposition home or self-care (01) ==
LOC: NCHCN 09:21
PROVIDERS: PCP Family Medicine; Visit Provider Family Medicine
DX: R06.09 Other forms of dyspnea (principal); E04.2 Nontoxic multinodular goiter; L03.90 Cellulitis, unspecified; R61 Generalized hyperhidrosis
CPT/HCPCS: 80053; 81003; 81015; 82607; 84443; 85025

== ENCOUNTER → 2021-09-07 00:26 | Outpatient (CLI) | payer MEDICARE, MEDICAID, SELFPAY ==
--- NOTE | 2021-09-07 10:30 | DI.US_ITS ---
APPROVED REPORT EXAM: Comprehensive 2D, Doppler, and color-flow Echocardiogram Patient Location: Out-Patient [facility] Operator: Thelma Galvez RDCS (AE) Indications: SUGGS, Muscle weakness Other Information Study Quality: Adequate Conclusion Normal left ventricular wall thickness and chamber size. Estimated ejection fraction is 55 to 60%. There are no segmental wall motion abnormalities Normal right ventricular size and systolic function Both atria are normal in size The aortic valve is trileaflet and mildly sclerotic without stenosis or regurgitation Normal mitral valve. Mild mitral annular calcification. Trace to mild mitral regurgitation Normal tricuspid valve with trace regurgitation. Estimated right ventricular systolic pressure is 21 mmHg Mildly dilated ascending aorta measuring 3.59 cm Wall motion Left Ventricle The left ventricle is normal size. The left ventricular systolic function is normal. The left ventric ular ejection fraction is within the normal range. There is normal left ventricular wall thickness. T here is normal LV segmental wall motion. There is no ventricular septal defect visualized. LVEF is 57 %. Right Ventricle The right ventricle is normal size. The right ventricular systolic function is normal. The RVSP is 21 .3 mmHg. Atria The left atrium size is normal. The right atrium size is normal. The interatrial septum is intact wit h no evidence for an atrial septal defect. Aortic Valve The aortic valve is mildly sclerotic Aortic valve is trileaflet. There is no aortic valvular stenosis . No aortic regurgitation is present. Mitral Valve The mitral valve is normal in structure. Mild mitral annular calcification No evidence of mitral valv e stenosis. Trace to mild mitral regurgitation. Tricuspid Valve The tricuspid valve is normal in structure. There is no tricuspid valve stenosis. Trace tricuspid reg urgitation. Pulmonic Valve The pulmonary valve is normal in structure. There is no pulmonic valvular stenosis. There is no pulmo madie valvular regurgitation. Great Vessels The aortic root is normal in size. The ascending aorta is mildly dilated.3.59 cm IVC is normal in siz e and collapses >50% with inspiration. Pericardium There is no pericardial effusion. 2D Dimensions IVSD d PLAX 0.99 cm F: 0.6-1.0 LV Vol A2C d MOD 77.4 mL LVPW d PLAX 0.91 cm F: 0.6 - 1.0 LV Vol A4C d MOD 75.2 mL LVID d PLAX 4.29 cm F: 3.8 - 5.2 LA vol/ BSA A2C s A-L 27.6 mL/m2 LVDs 3.00 cm F: 2.2 - 3.5 LA vol/ BSA A4C s A-L 27.0 mL/m2 Ao Root d 2.79 cm F: 2.7 - 3.3 LA Vol/ BSA Biplane s A-L 28.9 mL/m2 RA Area A4C 8.84 cm2 LA Area A4C s MOD 16.65 cm2 RA Vol/ BSA A4C s A-L 11.0 mL/m2 LA Area A2C s MOD 15.89 cm2 Ao Asc Diam d 3.59 cm F: 2.3 - 3.1 LV EF A4C MOD 56.7 % LV EF Teichholz 57.4 % LV EF A2C MOD 56.9 % LVEF (Garcia's) 57.02 % F: 54 - 74 LV EF Biplane MOD 57.0 % LV Volume 61.54 mL F: 46 - 106 SV 43.78 mL LV Volume Index 37.29 mL/m2 F: 29 - 61 SV Index 26.41 mL/m2 LV Vol Biplane MOD 76.8 mL FS 29.90 % M-Mode TAPSE 1.71 cm (M/F) >1.7 LV Diastology MV E' medial 0.078 (>0.07 m/s) E/A Ratio 0.8 LV E/e MED 8.50 (<14) MV E Vmax 0.66 (0.4-1.3 m/s) MV E' lateral 0.077 (>0.1 m/s) MV A Vmax 0.85 (0.4-1.3 m/s) LV E/e LAT 8.65 (<14) MV E/A Ratio 0.74 MV E/E' medial 8.50 MV E/E' lateral 8.68 Aortic Valve LVOT Area 2.82 cm2 AoV Area Vmax 2.74 cm2 LVOT Vmax 1.17 m/s AoV Area/ BSA (Vmax) 1.65 cm2/m2 LVOT Mean Brendon. 0.73 m/s JOHN Mean Brendon. 2.45 cm2 LVOT Peak Grad 5.4 mmHg JOHN Mean Brendon. Index 1.48 cm2/m2 LVOT Mean Grad 2.5 mmHg LVOT VTI 0.227 m LVOT Diam s 1.85 cm AoV Vmax 1.20 m/s Velocity Ratio 0.97 AoV Mean Brendon. 0.84 m/s AoV Peak Grad 5.8 mmHg LVOT SV 64.21 mL AoV Mean Grad 3.1 mmHg AoV VTI 0.236 m AoV Area VTI 2.72 cm2 AoV Area/ BSA (VTI) 1.64 cm/m2 Mitral Valve MV DT 372 (160-240 msec) MV PHT 108 msec MV Area PHT 2.04 cm2 Pulmonary Valve PV Vmax 0.68 (0.5-1.5 m/s) RVOT Peak Gr. 1.18 mmHg PV Peak Grad 1.8 mmHg RVOT Mean Gr. 0.65 mmHg PV Mean Grad 1.1 mmHg RVOT VTI 0.102 m PV VTI 0.131 m RVOT Vmax 0.54 m/s Tricuspid Valve TR Peak Grad 18.2 mmHg TR Vmax 2.14 m/s RA Pressure 3.00 mmHg RVSP (TR) 21.3 mmHg
== END ==
PROVIDERS: PCP Family Medicine; Visit Provider Family Medicine
DX: R06.09 Other forms of dyspnea (principal)
CPT/HCPCS: 93306

== ENCOUNTER 2022-04-27 08:41 | Outpatient (CLI) | payer MEDICARE, MEDICAID, SELFPAY ==
--- NOTE | 2022-04-27 06:00 | DI.RAD_ITS ---
Exam(s) XR PAIN CLINIC SACRIOILIAC 2V EXAM: XR PAIN CLINIC SACRIOILIAC 2V CLINICAL HISTORY: Dx: Sacroiliac Joint Dysfunction TECHNIQUE: 2D and realtime digital imaging was performed. CONTRAST MATERIAL: Refer to procedure report. COMPARISON: No exams were available for comparison FINDINGS: Fluoroscopy was provided for Dr. Hitchcock during the performance of a right sacroiliac joint injection. Please refer to the procedure report for complete details. Ka,r=2.75 mGy IMPRESSION:
[2022-04-27 08:51] VITALS: BP 113/81; PULSE 66; RESP 20; TEMP 36.3; O2SAT 95
--- NOTE | 2022-04-27 09:21 | PDOC.PAIN_ITS ---
Date of service: 04/27/22 Time of Service: 09:30 Pain Clinic Procedure Note Procedure Note Procedure Note: INTRA-ARTICULAR SI JOINT INJECTION Alyson Galvez has been referred to the [facility] for intra- articular SI joint injection. COMMENTS: She was seen in this office with Dr. Thomas on 04/25/[address] Thomas recommended this procedure for the patient's right upper buttock pain. Pre-procedure pain VAS was 5/10 Dx: Sacroiliac joint dysfunction Patient was interviewed and the medical record reviewed. There were no medical, pharmacologic, radiographic or other structural contraindications to attempting fluoroscopically guided intra-articular SI joint injection. Risks and expected side effects as well as potential benefit of the procedure were reviewed and voiced concerns addressed. The printed consent form was signed and witnessed. Standard time-out procedure was performed. Patient was placed in the prone position on the fluoroscopy table and automated blood pressure cuff and pulse oximeter applied. The skin entry point for approaching the right SI joint was identified under the most advantageous fluoroscopic view and marked. Following thorough Chlorhexadine preparation of the skin and draping and 1% lidocaine infiltration of the skin entry point and subcutaneous tissues, a 22 gauge spinal needle was placed under fluoroscopic guidance into the right SI joint was identified under the most advantageous fluoroscopic view and marked. Intra-articular placement was confirmed by a clear arthrogram resulting from the injection of 0.25ml Omnipaque 240, 1ml 1% lidocaine, and 40mg Depomedrol were injected intra-articularily with an initial reproduction of a significant component of the usual pain. Vital signs were stable throughout the procedure and were as recorded in the docflowsheet by the nursing staff. If given, dosages of intravenous drugs for anxiolysis and analgesia were documented in MAR. Follow up plans and appointments were discussed with the patient. Post procedure instruction was given as documented in nursing documentation and having met discharge criteria, and was discharged from the [facility]. COMMENTS: Post-procedure pain VAS was 3/10. This procedure can be completed up to 3 times per 12 months if it is found to be helpful. The benefits from this procedure can be improved with specific exercises. Corby Hitchcock DO, MPH [facility]-Pain Management [facility] CC: Rosario Reed
[2022-04-27] MEDS: methylPREDNISolone ACETATE 80 MG/ML VIAL IJ (09:23)
[2022-04-27] MEDS: Omnipaque 240 MG/ML 50 ML BTL IJ (09:24)
[2022-04-27 09:29] VITALS: BP 127/69; PULSE 65; RESP 13; O2SAT 95
== END 2022-04-27 08:42 | disposition home or self-care (01) ==
LOC: PC 08:41
PROVIDERS: PCP Family Medicine; Visit Provider Preventive Medicine Occupational Medicine
DX: M53.3 Sacrococcygeal disorders, not elsewhere classified (principal); M54.50 Low back pain, unspecified
CPT/HCPCS: 27096; 72200; G0260; J1040; Q9967

== ENCOUNTER → 2022-07-14 11:05 | Outpatient (BNVA) | payer MEDICARE, MEDICAID, SELFPAY | PROVIDERS: PCP Family Medicine; Referring Provider Family Medicine; Visit Provider Physical Therapy Assistant | DX: Z12.11 Encounter for screening for malignant neoplasm of colon (principal); Z86.010 Personal history of colon polyps ==

== ENCOUNTER 2022-09-06 09:58 | Outpatient (CLI) | payer MEDICARE, MEDICAID, SELFPAY ==
[2022-09-06 10:13] VITALS: BP 120/72; PULSE 68; RESP 20; TEMP 36.8; O2SAT 96
[2022-09-06 10:57] VITALS: PULSE 71; O2SAT 93
[2022-09-06] MEDS: Lidocaine 2% Pres-Free 5 ML VIAL IJ (11:09)
--- NOTE | 2022-09-06 14:58 | PDOC.PAIN ---
Date of service: 09/06/22 Time of Service: 11:11 Pain Managment Procedure Note Procedure Note Procedure Note: PROCEDURE NOTE ULTRASOUND-GUIDED RIGHT GLUTEUS MEDIUS TENOTOMY PROCEDURE Date of Service: September 06, 2022 Patient: Alyson Galvez Provider: Corby Hitchcock DO, MPH Pre-operative diagnosis: Lateral hip pain Post-operative diagnosis: Same Pre-procedure pain: VAS= 7/10 COMMENTS: I previously evaluated her in the clinic Alyson Galvez has been referred to the [facility] for an ultrasound-guided RIGHT gluteus medius needling procedure. Alyson was interviewed and the medical record reviewed. There were no medical, pharmacologic, radiographic or other structural contraindications to attempting a ultrasound-guided gluteus medius tenotomy procedure. Risks and potential side effects as well as potential benefit of the procedure were reviewed with the patient, and her voiced concerns were addressed. After verbal informed consent was obtained, the printed consent form was signed. Standard time-out procedure was performed. Alyson was placed in the lateral recumbant position on the procedure table with the affected side up. Next, automated blood pressure cuff and pulse oximeter applied. The skin entry point for approaching the RIGHT gluteus medius tendon. I injected 3 ml of 1% Lidocaine just outside the tendon and made 15 puncture holes in the distal tendon with the spinal needle under ultrasound guidance. The needle was then removed without difficulty. Alyson's vital signs were stable throughout the procedure and were as recorded in the docflowsheet by the nursing staff. If given, dosages of intravenous drugs for anxiolysis and analgesia were documented in MAR. Follow up plans and appointments were discussed with the Alyson. Post procedure instruction was given as documented in nursing documentation and having met discharge criteria, Alyson was discharged from the [facility] Management [facility]. COMMENTS: No apparent complications. Post-procedure pain;VAS= 0/10 The patient understands that she should be nearly [id number] over the next 7 days. After that she will concentrate of gluteal muscle and IT band stretching for 2 weeks. At 3 weeks post-tendon needling procedure, Alyson can start toning exercises for the gluteal muscles. F/U with our office as needed. Gluteus Medius tenotomy or needle fenestration has been shown to produce improvement in the majority of patients at a 2 month follow up. Sean JA1, Joaquin J2, Urmila CM2, Chelsy SM2, Hoda M2, Cary A2.Ultrasound-Guided Fenestration of Tendons About the Hip and Pelvis: Clinical Outcomes. J Ultrasound Med. 2015 Nov;34(11):2029-35. doi: 10.7863/[email or web address].[email or web address]. Epub 2014Dec 19. Gonzalo PORRAS1, Sean JA, Garfield R.Sonographically guided percutaneous needle tenotomy for the treatment of chronic tendinosis. J Ultrasound Med. 2009 Nov;28(9):1187-92. Sean PORRAS1, Urmila CM2, Marylin PT3, Meet IS4, Ashley A5, Silvina B5, Trevon A5, Cary A6.Greater Trochanteric Pain Syndrome: Percutaneous Tendon Fenestration Versus Platelet-Rich Plasma Injection for Treatment of Gluteal Tendinosis. J Ultrasound Med. 2016 Nov;35(11):2109-5224. Epub 2016 Dec 10. I personally performed this entire procedure. Corby Hitchcock DO, MPH ABPMR-subspecialty board certification in Pain Medicine [facility] for [facility] Management
== END 2022-09-06 09:59 | disposition home or self-care (01) ==
LOC: PC 09:59
PROVIDERS: PCP Family Medicine; Visit Provider Preventive Medicine Occupational Medicine
DX: M70.61 Trochanteric bursitis, right hip (principal); M25.551 Pain in right hip
CPT/HCPCS: 20611

== ENCOUNTER 2022-12-30 10:36 | Inpatient (IN) | payer MEDICARE, MEDICAID, SELFPAY ==
[2022-12-30 11:00] VITALS: BP 161/118; PULSE 72; RESP 16; TEMP 36.5; O2SAT 93
--- NOTE | 2022-12-30 11:37 | DI.CT_ITS ---
Exam(s) CT HEAD WO EXAM: CT HEAD WO CLINICAL HISTORY: Altered mental status. TECHNIQUE: Imaging Protocol: Axial computed tomography images with coronal and sagittal reformatted images were created and reviewed COMPARISON: CT CT HEAD WO from 06/18/2018 FINDINGS: Ventricles and Extra axial spaces: Normal in size and morphology for the patient's age. Hemorrhage: None. Cerebral parenchyma: No evidence of acute infarct or mass. Midline shift: None. Brainstem/Cerebellum: Normal. Calvarium: Normal. Visualized Paranasal sinuses/Mastoids: Clear. Soft Tissues: Unremarkable. IMPRESSION: No acute intracranial process. RADIATION DOSE DELIVERED: Total DLP DATA REPOSITORY: All CT scans at this facility are submitted to the National Radiology Data Registry (NRDR) Dose Index Registry (DIR) with the [employer] (A[employer]). RADIATION OPTIMIZATION: All CT scans at this facility use at least one of these dose optimization te chniques: automated exposure control; mA and/or kV adjustment per patient size (includes targeted exa ms where dose is matched to clinical indication); or iterative reconstruction.
[2022-12-30 12:00] LABS: Abs Immature Grans 0.03 10^3/uL (0.0-0.06); Absolute Eosinophil Count 0.18 10^3/uL (0.0-0.7); Absolute Lymphocyte Count 1.22 10^3/uL (1.2-3.4); Absolute Monocyte Count 0.79 10^3/uL (0.1-0.8); Absolute Neutrophil Count 5.64 10^3/uL (1.2-6.7); Basophils % 1.3; Eosinophils % 2.3; HCT 36.4 % (36.0-46.0); Immature Grans % 0.4; Lymphocytes % 15.3; MCH 28.4 pg (27.0-33.0); MCV 86 fL (80-95); MPV 9.9 fL (8.0-11.0); Monocytes % 9.9; Neutrophils % 70.8; Platelet Count 292 10^3/uL (130-400); RBC 4.22 10^6/uL (3.93-5.22); RDW 14.3 % (11.7-14.6); RDW-SD 44.7 fL; WBC 7.96 10^3/uL (4.4-10.8)
[2022-12-30 12:07] LABS: Ammonia < 10 umol/L (11-32)
[2022-12-30 12:25] LABS: ALT 9 U/L (14-59); AST 21 U/L (15-37); Albumin 3.8 g/dL (3.4-5.0); Alkaline Phosphatase 148 U/L (46-116); Anion Gap 11.3 mmol/L (3-11); BUN 50 mg/dL (7-18); Bilirubin, Total 0.8 mg/dL (0.2-1.0); CO2 24.7 mmol/L (21.0-32.0); CREATININE 1.9 mg/dL (0.55-1.02); Calcium 9.6 mg/dL (8.5-10.1); Chloride 104 mmol/L (98-107); Estimated GFR 27.03 (mL/min/1.73m2); Glucose 124 mg/dL (74-106); Magnesium 2.1 mg/dL (1.8-2.4); Potassium 3.4 mmol/L (3.5-5.1); Sodium 140 mmol/L (136-145); TSH (W/Ref FT4) 0.74 uIU/mL (0.36-3.74)
[2022-12-30 12:41] LABS: ETHANOL BLOOD < 3.0 mg/dL (<10)
--- NOTE | 2022-12-30 12:43 | DI.RAD_ITS ---
Exam(s) XR LUMBAR SPINE COMPLETE EXAM: XR LUMBAR SPINE COMPLETE CLINICAL HISTORY: fall back pain. TECHNIQUE: 2D digital imaging was performed. Five views. COMPARISON: No exams were available for comparison FINDINGS: No compression fractures. Severe degenerative disc changes from L2-3 through L5-S1. Degenerative de xtroscoliosis. Facet degenerative changes from L3-4 through L5-S1. No spondylolysis or spondylolist hesis. Large quality of stool. IMPRESSION: Severe degenerative changes and scoliosis. No acute abnormality. DATA REPOSITORY: RADIATION DOSE DELIVERED:
[2022-12-30 13:21] LABS: Bilirubin Negative (Negative); Blood Trace-intact (Negative); Clarity Clear (Clear); Glucose Negative (Negative); Ketones Trace mg/dL (Negative); Leukocyte Esterase Small (Negative); Nitrite Negative (Negative); Specific Gravity >= 1.030 (1.005-1.025); Urobilinogen 0.2 mg/dL (Up to 0.2); pH 5.5 (5-8)
[2022-12-30 13:26] LABS: COVID-19 PCR Negative (Negative); Influenza A PCR Negative (Negative); Influenza B PCR Negative (Negative); RSV PCR Negative (Negative)
[2022-12-30 13:29] LABS: Source Nasopharynx
[2022-12-30 13:30] LABS: *AMPHETAMINES SCREEN URINE Negative (Negative); *BARBITURATES SCREEN URINE Negative (Negative); *BENZODIAZEPINES SCREEN URINE Negative (Negative); Cannabinoids THC Positive (Negative); Cocaine Screen,Urine Negative (Negative); METHADONE URINE SCREEN Negative (Negative); OPIATES URINE SCREEN Positive (Negative)
[2022-12-30 13:32] LABS: Bacteria Few HPF (Negative); C & S Indicated? No/Sq. Contamination; Casts 3-5 Hyaline LPF (Negative); Crystals Negative HPF (Negative); Epithelial Cells Many HPF (Negative); Mucus Negative (Negative)
[2022-12-30 13:33] LABS: Tricyclic Antidepressants Negative (Negative)
[2022-12-30] MEDS: Normal Saline 500 ML IV (13:35)
[2022-12-30] MEDS: Potassium Chloride 20 MEQ TABCR PO (13:38)
[2022-12-30] MEDS: Acetaminophen 500 MG TAB PO (13:38)
[2022-12-30 13:44] VITALS: RESP 16
--- NOTE | 2022-12-30 14:30 | W.ED.GENAD ---
Discharge Plan Disposition Patient Disposition: Admit to [facility] Discharge Details Clinical Impression: Acute kidney injury, Generalized weakness, Delusions, Multiple falls, Acute UTI Admit Date/Time: 12/30/22 15:01 Admit Provider: Chuy Salazar Attending Provider: Chuy Salazar Primary Care Provider: Rosario Reed ED Provider: Damian Larios Discharge Data Discharge Date/Time-TO BE ENTERED AT DEPARTURE: 12/30/22 17:43 Medical Decision Making Patient presenting to the emergency department with chief complaint of multiple falls, back pain, and delusions. Patient brought in by her mental health therapist and neighbors due to concern for her living situation and recent events. Patient lives at home with her who recently had a [id number] amputation. She has been having multiple and numerous falls at home and at times lying on the ground for 1 to 2 hours due to not being able to get up and her being unable to help her. They have no other family in the area and at times she has had to wait for other people to come help. She does state that she has recently noted an increase in urination but denies any other new urinary symptoms from her baseline. She does state that she has been having delusions/hallucinations of seeing objects or people in her home but then when she discusses these things with other people they cannot see what she is seeing. She denies them speaking to her or telling her to act or harm herself but just they are not actually present. Patient states acute on chronic back pain due to the falls. She does state that she thinks she is supposed to be taking some Lasix but has not been taking it regularly. Patient does have past medical history of Parkinson's with gait instability, chronic back pain degenerative disc disease, anxiety, overactive bladder. Physical exam shows mild lumbar tenderness with no step-off deformity no obvious unstable fracture, generalized weakness to lower extremities without focal finding, normal cardiac respiratory and abdominal exam. We will plan on checking labs, urinalysis, and CT imaging of head and neck with plain film imaging of back given multiple falls. Pending results will give small fluid bolus of 500 mL. Reviewed results and patient has unremarkable CBC with no significant anemia or leukocytosis, CMP shows slightly low potassium at 3.4, significant elevation of BUN of 50, creatinine 1.9 with a GFR of 27 which is concerning for acute kidney injury, labs are otherwise nondiagnostic and noncontributory. Urinalysis does show high specific gravity with urine protein ketones and trace blood. There is small amount of leukocyte esterase and 10-20 WBCs. Given patient's acute complaint of increase of urinary frequency and concern for possible infection so we will give patient dose of Rocephin. Toxicology screen did show positive for opiates and THC. Initially to me patient did state that she occasionally uses THC edibles which may be contributing to her delusions but denied any use of opiates. After I left the room patient did tell medical staff physician that her had given her 2 of his pain medication and I question if these are possible narcotics given his recent amputation. CT imaging and x-ray imaging reviewed and shows degenerative changes but no acute findings. Discussed with patient my concern due to multiple falls and inappropriate resources at home to help with her care along with the acute kidney injury and possible urinary infection. Given the safety concerns along with acute medical condition patient is agreeable to admission. Did speak with hospitalist in regards to admission and further hydration due to acute renal injury and possible need of physical therapy consult for safety disposition Home. Hospice was a agreeable to admission and further care patient. Imaging Data Radiologic Study: Imaging: CT Scan Radiologist's impression: Exam(s) CT HEAD WO EXAM: CT HEAD WO CLINICAL HISTORY: Altered mental status. TECHNIQUE: Imaging Protocol: Axial computed tomography images with coronal and sagittal reformatted images were created and reviewed COMPARISON: CT CT HEAD WO from 06/18/2018 FINDINGS: Ventricles and Extra axial spaces: Normal in size and morphology for the patient's age. Hemorrhage: None. Cerebral parenchyma: No evidence of acute infarct or mass. Midline shift: None. Brainstem/Cerebellum: Normal. Calvarium: Normal. Visualized Paranasal sinuses/Mastoids: Clear. Soft Tissues: Unremarkable. IMPRESSION: No acute intracranial process. Radiologic Study #2: Imaging: X-Ray Radiologist's impression: Exam(s) XR LUMBAR SPINE COMPLETE EXAM: XR LUMBAR SPINE COMPLETE CLINICAL HISTORY: fall back pain. TECHNIQUE: 2D digital imaging was performed. Five views. COMPARISON: No exams were available for comparison FINDINGS: No compression fractures. Severe degenerative disc changes from L2-3 through L5-S1. Degenerative dextroscoliosis. Facet degenerative changes from L3-4 through L5-S1. No spondylolysis or spondylolisthesis. Large quality of stool. IMPRESSION: Severe degenerative changes and scoliosis. No acute abnormality. Lab Data Lab results reviewed: Yes I reviewed the patient's lab results. HPI General Mode of arrival: wheelchair. Date/Time Provider Initiated Documentation: 12/30/22 11:21. Limitations to Documentation: no limitations. Information obtained by: patient, family (friends) and RN notes reviewed. History of Present Illness 77 year old F presents to the emergency department with the chief complaint of Multiple falls, delusions/hallucinations, frequent urination, described as moderate, Quality is described as aching, and is localized to the back. Patient started experiencing this month(s) and it has been constant. No relieving factors improve symptom(s), Movement worsens symptoms . Patient did receive the following treatments prior to arrival, none Related Data Home Medications Medication Instructions Recorded Confirmed brimonidine 0.2 %-timolol 0.5 % 1 drp ophthalmic (eye) BID 06/18/18 12/30/22 eye drops (Combigan) bupropion HCl 150 mg tablet,12 hr 150 mg PO BID 06/18/18 12/30/22 sustained-release (Wellbutrin SR) magnesium L-lactate 84 mg 84 mg PO HS 06/18/18 12/30/22 tablet,extended release naproxen 500 mg tablet 500 mg PO BID 06/18/18 12/30/22 diltiazem HCl 360 mg 360 mg PO DAILY 09/18/18 12/30/22 tablet,extended release 24 hr (Cardizem LA) polyethylene glycol 3350 17 gram 17 g PO DAILY PRN 10/05/18 12/30/22 oral powder packet (Miralax) albuterol sulfate 90 mcg/actuation 2 puff inhalation Q6H PRN 04/23/20 12/30/22 aerosol inhaler (ProAir HFA) mirtazapine 15 mg tablet 15 mg PO QHS 04/23/20 12/30/22 pantoprazole 40 mg tablet,delayed 40 mg PO DAILY #90 tabs 05/08/20 12/30/22 release (Protonix) fluticasone propionate 50 1 spray intranasal BID PRN 11/10/20 12/30/22 mcg/actuation nasal spray,suspension cyclobenzaprine 10 mg tablet 10 mg PO BID 12/30/21 12/30/22 losartan 100 mg tablet 100 mg PO DAILY 12/30/21 12/30/22 memantine 5 mg tablet 5 mg PO BID 12/30/21 12/30/22 trazodone 50 mg tablet 50 mg PO QHS PRN 12/30/21 12/30/22 carbidopa 25 mg-levodopa 100 mg 2 tab PO TID 04/19/22 12/30/22 tablet celecoxib 100 mg capsule (Celebrex) 100 mg PO BID 04/19/22 12/30/22 cholecalciferol (vitamin D3) 25 25 mcg PO DAILY 04/19/22 12/30/22 mcg (1,000 unit) capsule gabapentin 100 mg capsule 100 mg PO TID 04/19/22 12/30/22 hydroxyzine HCl 10 mg tablet 10 mg PO TID PRN 04/19/22 12/30/22 sennosides 8.6 mg tablet (Natural 17.2 mg PO DAILY 04/19/22 12/30/22 Senna Laxative) bisacodyl 5 mg tablet,delayed 5 mg PO ONCE Colonoscopy Bowel 07/14/22 12/30/22 release (Dulcolax (bisacodyl)) PRep #4 tabs polyethylene glycol 3350 17 238 g PO ONCE Colonoscopy Bowel 07/14/22 12/30/22 gram/dose oral powder Prep #238 grams amantadine HCl 100 mg capsule 100 mg PO DAILY 12/30/22 12/30/22 furosemide 20 mg tablet 20 mg PO DAILY 12/30/22 12/30/22 Previous Rx's Medication Instructions Recorded pantoprazole 40 mg tablet,delayed 40 mg PO DAILY #90 tabs 05/08/20 release (Protonix) bisacodyl 5 mg tablet,delayed 5 mg PO ONCE Colonoscopy Bowel 07/14/22 release (Dulcolax (bisacodyl)) PRep #4 tabs polyethylene glycol 3350 17 238 g PO ONCE Colonoscopy Bowel 07/14/22 gram/dose oral powder Prep #238 grams Allergies Allergy/AdvReac Type Severity Reaction Status Date / Time atorvastatin Allergy Intermediate Verified 12/30/22 11:05 lisinopril AdvReac Intermediate cough Verified 12/30/22 11:05 simvastatin AdvReac Intermediate overall Verified 12/30/22 11:05 body ache Sulfa (Sulfonamide AdvReac Intermediate my Verified 12/30/22 11:05 Antibiotics) symptoms got worse General Stated Complaint: GenMedical GIANNA: 3 Review of Systems Constitutional Constitutional: Denies chills, Denies fever(s), Denies headache(s) and Reports weakness (Generalized nonfocal) ENT Ears, Nose, Mouth, and Throat: Denies headache(s), Denies nasal congestion and Denies sore throat Cardiovascular Cardiovascular: Denies chest pain, Denies syncope, Denies lightheadedness and Denies dyspnea Respiratory Respiratory: Denies cough and Denies dyspnea Gastrointestinal Gastrointestinal: Denies abdominal pain, Denies diarrhea, Denies nausea and Denies vomiting Genitourinary Genitourinary: Denies dysuria and Reports other (Frequent urination) Musculoskeletal Musculoskeletal: Reports back pain Integumentary/Breasts Skin/Breast: Denies wounds Neurologic Neurologic: Denies syncope, Denies headache(s) and Reports weakness (Generalized nonfocal) PFSH All Active Problems (Updated 12/30/22 @ 20:33 by Chuy Salazar MD) Discharge planning issues (Acute) Hallucinations (Acute) Acute UTI (Acute) Multiple falls (Acute) Delusions (Acute) Generalized weakness (Acute) Acute kidney injury (Acute) Myalgia (Acute) Trochanteric bursitis of right hip (Acute) Sacroiliac joint dysfunction of right side (Acute) Screening for colon cancer (Acute) OAB (overactive bladder) (Acute) Spondylosis of lumbar region without myelopathy or radiculopathy (Chronic) Myalgia and myositis (Chronic) Unspecified disorder of ear, bilateral (Acute) Esophagitis (Acute) Former smoker (Acute) Preop testing (Acute) Cannabis use, uncomplicated (Acute) Hiatal hernia (Chronic) Bile reflux gastritis (Acute) moderate Urge incontinence (Acute) Parkinsons (Chronic) Fibromyalgia (Acute) Lewy body dementia (Chronic) Lactose intolerance (Chronic) Esophageal stricture (Chronic) Dissociative identity disorder (Chronic) Dysphagia (Acute) Medical History Basal cell carcinoma Lipoma Cataracts, bilateral Menopause Multiple thyroid nodules Cellulitis SUGGS (dyspnea on exertion) Excessive sweating Candidiasis, vagina Weight gain DJD (degenerative joint disease), cervical Actinic keratosis Chronic back pain PTSD (post-traumatic stress disorder) Hypercholesterolemia History of substance abuse Adenomatous colon polyp Hypomagnesemia Essential tremor Depression Anxiety Urinary incontinence Glaucoma Surgical History Hx of colonoscopy History of esophagogastroduodenoscopy (EGD) (~05/08/20) History of esophagogastroduodenoscopy (EGD) 11/09/18 History of surgery on arm History of back surgery EGD - [facility] (02/10/16) DR. HAMLET THOMAS, with dilatation EGD - [facility] (01/16/15) DR. HAMLET THOMAS, with dilatation Social History Smoking/Tobacco Use Status: Former Tobacco Use Quit Date: 03/20/75 Smoking risk assessment performed?: Yes Alcohol Intake: never Drug use: Daily Substance use type: marijuana Details: smoke and edibles Housing: house Do you feel safe at home: Yes Do you feel safe in your relationship?: Yes Exam Const General: no acute distress, frail appearing and not ill appearing Orientation: alert, awake and oriented x3 HENMT Head: normal to inspection, normocephalic and atraumatic General nose exam: external nose normal Mouth: moist mucous membranes Eyes General: appearance normal, both eyes and all related structures Pupils: PERRL Neck Neck: full ROM and nontender Resp Effort & Inspection: normal respiratory effort, able to speak in complete sentences and no respiratory distress Auscultation: clear to auscultation bilaterally Cardio Rate: regular rate Rhythm: regular rhythm Heart Sounds: S1 normal and S2 normal Pulses: radial pulses present GI Palpation: soft and nontender Auscultation: normal bowel sounds Back/Spine/Pelvis Thoracic/Lumbar Spine: No paraspinal tenderness and lumbar spinal tenderness (mid lumbar) Pelvis: no pain with anterior-posterior compression and no pain with lateral compression Skin General skin exam: no rashes or lesions noted Neuro General: patient alert, patient awake, patient oriented x3, moves all extremities and no focal motor deficits Motor: other (Generalized weakness ) Course Vital Signs Vital signs: Vital Signs Temperature 36.5 C 12/30/22 11:00 Pulse 72 12/30/22 11:00 Respiratory Rate 16 12/30/22 11:00 Blood Pressure 161/118 H 12/30/22 11:00 Pulse Oximetry 93 12/30/22 11:00 Temperature 36.5 C 12/30/22 11:00 Temperature Source Temporal Artery Scan 12/30/22 11:00 Pulse 72 12/30/22 11:00 Respiratory Rate 16 12/30/22 13:44 Respiratory Effort Normal, Non-Labored 12/30/22 13:44 Respiratory Depth Normal 12/30/22 13:44 Respiratory Pattern Normal 12/30/22 13:44 Blood Pressure 161/118 H 12/30/22 11:00 Blood Pressure Position Sitting 12/30/22 11:00 Pulse Oximetry 93 12/30/22 11:00 Oxygen Delivery Method Room Air 12/30/22 11:00 Oxygen Flow Rate 0 12/30/22 11:00 Pain Level 2 12/30/22 11:00 Comment lacerations on legs 12/30/22 11:00 Lab/Test Results Lab/Test Results: Laboratory Tests Range/Units 12/30/22 12/30/22 12/30/22 11:50 11:50 11:50 WBC (4.4-10.8) 10^3/uL 7.96 RBC (3.93-5.22) 10^6/uL 4.22 Hgb (11.2-15.7) g/dL 12.0 Hct (36.0-46.0) % 36.4 MCV (80-95) fL 86 MCH (27.0-33.0) pg 28.4 MCHC (32.0-36.0) % 33.0 RDW (11.7-14.6) % 14.3 Plt Count (130-400) 10^3/uL 292 MPV (8.0-11.0) fL 9.9 Immature Gran % 0.4 Neutrophils % 70.8 Lymphocytes % 15.3 Monocytes % 9.9 Eosinophils % 2.3 Basophils % 1.3 Nucleated RBC % (0.0-0.3) % 0.0 Absolute Neutrophils (1.2-6.7) 10^3/uL 5.64 Absolute Lymphocytes (1.2-3.4) 10^3/uL 1.22 Absolute Monocytes (0.1-0.8) 10^3/uL 0.79 Absolute Eosinophils (0.0-0.7) 10^3/uL 0.18 Absolute Basophils (0.0-0.2) 10^3/uL 0.10 Sodium (136-145) mmol/L 140 Potassium (3.5-5.1) mmol/L 3.4 L Chloride (98-107) mmol/L 104 Carbon Dioxide (21.0-32.0) mmol/L 24.7 Anion Gap (3-11) mmol/L 11.3 H BUN (7-18) mg/dL 50 H Creatinine (0.55-1.02) mg/dL 1.9 H Est GFR (CKD-EPI 2020) (mL/min/1.73m2) 27.03 Glucose (74-106) mg/dL 124 H Calcium (8.5-10.1) mg/dL 9.6 Magnesium (1.8-2.4) mg/dL 2.1 Total Bilirubin (0.2-1.0) mg/dL 0.8 AST (15-37) U/L 21 ALT (14-59) U/L 9 L Alkaline Phosphatase (46-116) U/L 148 H Ammonia (11-32) umol/L < 10 L Total Protein (6.4-8.2) g/dL 7.0 Albumin (3.4-5.0) g/dL 3.8 TSH Cancelled 0.74 Urine Color (Yellow) Urine Clarity (Clear) Urine pH (5-8) Ur Specific [place] (1.005-1.025) Urine Protein (Negative) mg/dL Urine Ketones (Negative) mg/dL Urine Blood (Negative) Urine Nitrite (Negative) Urine Bilirubin (Negative) Urine Urobilinogen (Up to 0.2) mg/dL Ur Leukocyte Esterase (Negative) Urine RBC (0-2) HPF Urine WBC (0-5) HPF Ur Epithelial Cells (Negative) HPF Urine Crystals (Negative) HPF Urine Bacteria (Negative) HPF Urine Casts (Negative) LPF Urine Mucus (Negative) Ur Culture Indicated? Urine Glucose (Negative) mg/dL Urine Opiates Screen (Negative) Urine Methadone Screen (Negative) Ur Barbiturates Screen (Negative) Ur Tricyclics Screen (Negative) Ur Amphetamines Screen (Negative) U Benzodiazepines Scrn (Negative) Urine Cocaine Screen (Negative) Ur THC Screen (Negative) Ethyl Alcohol Cancelled < 3.0 COVID-19 Source SARS-CoV-2 (PCR) (Negative) Influenza Type A (PCR) (Negative) Influenza Type B (PCR) (Negative) RSV (PCR) (Negative) Range/Units 12/30/22 12/30/22 12:40 13:14 WBC (4.4-10.8) 10^3/uL RBC (3.93-5.22) 10^6/uL Hgb (11.2-15.7) g/dL Hct (36.0-46.0) % MCV (80-95) fL MCH (27.0-33.0) pg MCHC (32.0-36.0) % RDW (11.7-14.6) % Plt Count (130-400) 10^3/uL MPV (8.0-11.0) fL Immature Gran % Neutrophils % Lymphocytes % Monocytes % Eosinophils % Basophils % Nucleated RBC % (0.0-0.3) % Absolute Neutrophils (1.2-6.7) 10^3/uL Absolute Lymphocytes (1.2-3.4) 10^3/uL Absolute Monocytes (0.1-0.8) 10^3/uL Absolute Eosinophils (0.0-0.7) 10^3/uL Absolute Basophils (0.0-0.2) 10^3/uL Sodium (136-145) mmol/L Potassium (3.5-5.1) mmol/L Chloride (98-107) mmol/L Carbon Dioxide (21.0-32.0) mmol/L Anion Gap (3-11) mmol/L BUN (7-18) mg/dL Creatinine (0.55-1.02) mg/dL Est GFR (CKD-EPI 2020) (mL/min/1.73m2) Glucose (74-106) mg/dL Calcium (8.5-10.1) mg/dL Magnesium (1.8-2.4) mg/dL Total Bilirubin (0.2-1.0) mg/dL AST (15-37) U/L ALT (14-59) U/L Alkaline Phosphatase (46-116) U/L Ammonia (11-32) umol/L Total Protein (6.4-8.2) g/dL Albumin (3.4-5.0) g/dL TSH Urine Color (Yellow) Yellow Urine Clarity (Clear) Clear Urine pH (5-8) 5.5 Ur Specific [place] (1.005-1.025) >= 1.030 H Urine Protein (Negative) mg/dL Trace H Urine Ketones (Negative) mg/dL Trace H Urine Blood (Negative) Trace-intact H Urine Nitrite (Negative) Negative Urine Bilirubin (Negative) Negative Urine Urobilinogen (Up to 0.2) mg/dL 0.2 Ur Leukocyte Esterase (Negative) Small H Urine RBC (0-2) HPF 3-5 H Urine WBC (0-5) HPF 10-20 H Ur Epithelial Cells (Negative) HPF Many Urine Crystals (Negative) HPF Negative Urine Bacteria (Negative) HPF Few Urine Casts (Negative) LPF 3-5 Hyaline Urine Mucus (Negative) Negative Ur Culture Indicated? No/Sq. Contamination Urine Glucose (Negative) mg/dL Negative Urine Opiates Screen (Negative) Positive A Urine Methadone Screen (Negative) Negative Ur Barbiturates Screen (Negative) Negative Ur Tricyclics Screen (Negative) Negative Ur Amphetamines Screen (Negative) Negative U Benzodiazepines Scrn (Negative) Negative Urine Cocaine Screen (Negative) Negative Ur THC Screen (Negative) Positive A Ethyl Alcohol COVID-19 Source Nasopharynx SARS-CoV-2 (PCR) (Negative) Negative Influenza Type A (PCR) (Negative) Negative Influenza Type B (PCR) (Negative) Negative RSV (PCR) (Negative) Negative
--- NOTE | 2022-12-30 15:03 | NUR.NOTE ---
Nursing Note:1400 patient walked in hallway with this RN. Tolerated walking well with no spikes in pulse rate. After walking to and from Bathroom Pulse 56/BPM
[2022-12-30] MEDS: cefTRIAXone 1 GM/50 ML BAG IVPB (15:48)
[2022-12-30] MEDS: Carbidopa 25/Levodopa 100 TAB PO ×2 (16:25→19:25)
[2022-12-30 17:26] VITALS: BP 143/57; PULSE 63; RESP 16; O2SAT 93
[2022-12-30 18:13] VITALS: BP 157/74; PULSE 73; RESP 18; TEMP 36.3; O2SAT 92
[2022-12-30] MEDS: Heparin 5,000 UNITS/ML VIAL 5000 UNITS SC (19:24)
[2022-12-30] MEDS: Celecoxib 100 MG CAP PO (19:24)
[2022-12-30] MEDS: Gabapentin 100 MG CAP PO (19:25)
[2022-12-30] MEDS: buPROPion-CR 150 MG TABCR PO (19:25)
[2022-12-30] MEDS: Polyethylene Glycol 3350 17 GM PACKET PO (19:26)
[2022-12-30] MEDS: Memantine 5 MG TAB PO (19:26)
[2022-12-30] MEDS: Normal Saline 1,000 ML 125 ML IV (19:26)
--- NOTE | 2022-12-30 20:09 | HPE_ITS ---
Date of service: 12/30/22 Time of Service: 20:10 Assessment and Plan Assessment and plan (1) Multiple falls: Status: Acute Assessment and plan: She describes her legs begin to shake and feel weak. She is able to then let her self down to the floor. PT consulted. (2) Hallucinations: Status: Acute Assessment and plan: Medication related? Lewy body dementia progression? Cannibis related? There is some coincidence with the onset of the hallucinations with starting amantadine. There is a potential interaction with this and memantine. Will hold the later. (3) Lewy body dementia: Status: Chronic Assessment and plan: Source of her hallucinations potentially. (4) Acute kidney injury: Status: Acute Assessment and plan: Poor intake of fluids recently. IV bolus and 1 liter of IV fluids administered. Monitor BUN and creatinine. (5) Generalized weakness: Status: Acute Assessment and plan: PT consulted. Encourage good dietary intake. May be related to medications. On mirtazapine and trazadone as well as cannibis gummies. (6) Acute UTI: Status: Acute Assessment and plan: Questionable UTI but sample had many epithelial cells and didn't trigger a cx. Given rocephin in the ED. Continue for 2 more doses. (7) HTN (hypertension): Status: None Assessment and plan: On losartan. Monitor. (8) Dysphagia: Status: Acute Assessment and plan: Has h/o esophageal stricture. Monitor for need of food consistency modification. (9) Discharge planning issues: Status: Acute Assessment and plan: She is a full code. She could benefit from a palliative consult; may need to occur as outpt. History of Present Illness History of Present Illness Chief Complaint: Visual hallucinations, falls N arrative: This is a 77 yo female with a PMH of Parkinson's disease, lewy body dementia, overactive bladder/urge incontinence, Cannabis use for pain, HTN, fibromyalgia, esophageal stricture, dysphagia, dissociative identity disorder. She presented to the ED becuase of falls, hallucinations. Her mental health therapist and neighbor brought her to the ED because of these concerns. She lives with her who is recently s/p an [id number] amputation and pt states he is physically doing OK but is becoming depressed. She has had multiple falls and has had to lie on the ground for up to several hours on occasion before she could get up; at times needing help from others. Back pain secondary to the falls. She endorses seeing people in her home, children following her and a plane flying on it's side toward the ground. She is aware these aren't real and they no longer frighten her. No auditory hallucinations. Lab in the ED was unremarkable other than a mildly low K of 3.4 and a creatinine of 1.9, BUN of 50. She endorses not drinking as much as usual lately. UA showed concentrated urine with many epithelial cells, small leuk est. and 10-20 WBCs. This did not trigger a culture. Toxicology was positive for opiates and THC. She doesn't have opiates on her home medication list but she did mention to the ED nurse that her gave her 2 of his pain pills. She does endorse using cannibis gummies. CT head showed no intracranial processes. XR lumbar spine with severe degenerative changes and scoliosis. Review of Systems All systems reviewed & are unremarkable except as noted in HPI and below PFSH All Active Problems (Updated 12/30/22 @ 20:33 by Chuy Salazar MD) Discharge planning issues (Acute) Hallucinations (Acute) Acute UTI (Acute) Multiple falls (Acute) Delusions (Acute) Generalized weakness (Acute) Acute kidney injury (Acute) Myalgia (Acute) Trochanteric bursitis of right hip (Acute) Sacroiliac joint dysfunction of right side (Acute) Screening for colon cancer (Acute) OAB (overactive bladder) (Acute) Spondylosis of lumbar region without myelopathy or radiculopathy (Chronic) Myalgia and myositis (Chronic) Unspecified disorder of ear, bilateral (Acute) Esophagitis (Acute) Former smoker (Acute) Preop testing (Acute) Cannabis use, uncomplicated (Acute) Hiatal hernia (Chronic) Bile reflux gastritis (Acute) moderate Urge incontinence (Acute) Parkinsons (Chronic) Fibromyalgia (Acute) Lewy body dementia (Chronic) Lactose intolerance (Chronic) Esophageal stricture (Chronic) Dissociative identity disorder (Chronic) Dysphagia (Acute) Medical History Basal cell carcinoma Lipoma Cataracts, bilateral Menopause Multiple thyroid nodules Cellulitis SUGGS (dyspnea on exertion) Excessive sweating Candidiasis, vagina Weight gain DJD (degenerative joint disease), cervical Actinic keratosis Chronic back pain PTSD (post-traumatic stress disorder) Hypercholesterolemia History of substance abuse Adenomatous colon polyp Hypomagnesemia Essential tremor Depression Anxiety Urinary incontinence Glaucoma Surgical History Hx of colonoscopy History of esophagogastroduodenoscopy (EGD) (~05/08/20) History of esophagogastroduodenoscopy (EGD) 11/09/18 History of surgery on arm History of back surgery EGD - MAC (02/10/16) DR. HAMLET THOMAS, with dilatation EGD - MAC (01/16/15) DR. HAMLET THOMAS, with dilatation Social History Smoking/Tobacco Use Status: Former Tobacco Use Quit Date: 03/20/75 Smoking risk assessment performed?: Yes Alcohol Intake: never Drug use: Daily Substance use type: marijuana Details: smoke and edibles Housing: house Do you feel safe at home: Yes Do you feel safe in your relationship?: Yes Meds Allergies and Home Medications Allergies Allergy/AdvReac Type Severity Reaction Status Date / Time atorvastatin Allergy Intermediate Verified 12/30/22 11:05 lisinopril AdvReac Intermediate cough Verified 12/30/22 11:05 simvastatin AdvReac Intermediate overall Verified 12/30/22 11:05 body ache Sulfa (Sulfonamide AdvReac Intermediate my Verified 12/30/22 11:05 Antibiotics) symptoms got worse Home Medications Medication Instructions Recorded Confirmed Type brimonidine 0.2 %-timolol 0.5 % 1 drp ophthalmic (eye) BID 06/18/18 12/30/22 History eye drops (Combigan) bupropion HCl 150 mg tablet,12 hr 150 mg PO BID 06/18/18 12/30/22 History sustained-release (Wellbutrin SR) magnesium L-lactate 84 mg 84 mg PO HS 06/18/18 12/30/22 History tablet,extended release naproxen 500 mg tablet 500 mg PO BID 06/18/18 12/30/22 History diltiazem HCl 360 mg 360 mg PO DAILY 09/18/18 12/30/22 History tablet,extended release 24 hr (Cardizem LA) polyethylene glycol 3350 17 gram 17 g PO DAILY PRN 10/05/18 12/30/22 History oral powder packet (Miralax) albuterol sulfate 90 mcg/actuation 2 puff inhalation Q6H PRN 04/23/20 12/30/22 History aerosol inhaler (ProAir HFA) mirtazapine 15 mg tablet 15 mg PO QHS 04/23/20 12/30/22 History pantoprazole 40 mg tablet,delayed 40 mg PO DAILY #90 tabs 05/08/20 12/30/22 Rx release (Protonix) fluticasone propionate 50 1 spray intranasal BID PRN 11/10/20 12/30/22 History mcg/actuation nasal spray,suspension cyclobenzaprine 10 mg tablet 10 mg PO BID 12/30/21 12/30/22 History losartan 100 mg tablet 100 mg PO DAILY 12/30/21 12/30/22 History memantine 5 mg tablet 5 mg PO BID 12/30/21 12/30/22 History trazodone 50 mg tablet 50 mg PO QHS PRN 12/30/21 12/30/22 History carbidopa 25 mg-levodopa 100 mg 2 tab PO TID 04/19/22 12/30/22 History tablet celecoxib 100 mg capsule (Celebrex) 100 mg PO BID 04/19/22 12/30/22 History cholecalciferol (vitamin D3) 25 25 mcg PO DAILY 04/19/22 12/30/22 History mcg (1,000 unit) capsule gabapentin 100 mg capsule 100 mg PO TID 04/19/22 12/30/22 History hydroxyzine HCl 10 mg tablet 10 mg PO TID PRN 04/19/22 12/30/22 History sennosides 8.6 mg tablet (Natural 17.2 mg PO DAILY 04/19/22 12/30/22 History Senna Laxative) bisacodyl 5 mg tablet,delayed 5 mg PO ONCE Colonoscopy Bowel 07/14/22 12/30/22 Rx release (Dulcolax (bisacodyl)) PRep #4 tabs polyethylene glycol 3350 17 238 g PO ONCE Colonoscopy Bowel 07/14/22 12/30/22 Rx gram/dose oral powder Prep #238 grams amantadine HCl 100 mg capsule 100 mg PO DAILY 12/30/22 12/30/22 History furosemide 20 mg tablet 20 mg PO DAILY 12/30/22 12/30/22 History Exam Narrative Exam Narrative: Lying supine. Pleasant and interactive. Const General: no acute distress, frail appearing and not ill appearing Orientation: alert, awake and oriented x3 (She describes her hallucinations and falls ) HENMT Head: normal to inspection and atraumatic Ears: hearing grossly normal bilaterally Mouth: moist mucous membranes Eyes General: appearance normal, both eyes and all related structures Sclera: sclerae normal Neck Neck: full ROM and nontender Resp Effort & Inspection: normal respiratory effort and able to speak in complete sentences Auscultation: clear to auscultation bilaterally Cardio Rate: regular rate Rhythm: regular rhythm Heart Sounds: S1 normal and S2 normal Pulses: radial pulses present GI Palpation: soft and nontender Auscultation: normal bowel sounds Back/Spine/Pelvis Thoracic/Lumbar Spine: No paraspinal tenderness and lumbar spinal tenderness (mid lumbar) Pelvis: no pain with anterior-posterior compression and no pain with lateral compression Skin General skin exam: no rashes or lesions noted Neuro General: patient alert, patient awake, patient oriented x3, moves all extremities and no focal motor deficits Cranial Nerves: facial strength normal Speech: speech normal Motor: other (Generalized weakness ) Extrem General: no pedal edema and no calf tenderness Psych Appearance: grossly normal Affect: normal affect Results Labs 12/30/22 11:50 12/30/22 11:50 Labs: Laboratory Results - last 24 hr 12/30/22 12/30/22 12/30/22 11:50 11:50 11:50 WBC 7.96 RBC 4.22 Hgb 12.0 Hct 36.4 MCV 86 MCH 28.4 MCHC 33.0 RDW 14.3 Plt Count 292 MPV 9.9 Immature Gran % 0.4 Neutrophils % 70.8 Lymphocytes % 15.3 Monocytes % 9.9 Eosinophils % 2.3 Basophils % 1.3 Nucleated RBC % 0.0 Absolute Neutrophils 5.64 Absolute Lymphocytes 1.22 Absolute Monocytes 0.79 Absolute Eosinophils 0.18 Absolute Basophils 0.10 Sodium 140 Potassium 3.4 L Chloride 104 Carbon Dioxide 24.7 Anion Gap 11.3 H BUN 50 H Creatinine 1.9 H Est GFR (CKD-EPI 2020) 27.03 Glucose 124 H Calcium 9.6 Magnesium 2.1 Total Bilirubin 0.8 AST 21 ALT 9 L Alkaline Phosphatase 148 H Ammonia < 10 L Total Protein 7.0 Albumin 3.8 TSH Cancelled 0.74 Urine Color Urine Clarity Urine pH Ur Specific [place] Urine Protein Urine Ketones Urine Blood Urine Nitrite Urine Bilirubin Urine Urobilinogen Ur Leukocyte Esterase Urine RBC Urine WBC Ur Epithelial Cells Urine Crystals Urine Bacteria Urine Casts Urine Mucus Ur Culture Indicated? Urine Glucose Urine Opiates Screen Urine Methadone Screen Ur Barbiturates Screen Ur Tricyclics Screen Ur Amphetamines Screen U Benzodiazepines Scrn Urine Cocaine Screen Ur THC Screen Ethyl Alcohol Cancelled < 3.0 COVID-19 Source SARS-CoV-2 (PCR) Influenza Type A (PCR) Influenza Type B (PCR) RSV (PCR) 12/30/22 12/30/22 12:40 13:14 WBC RBC Hgb Hct MCV MCH MCHC RDW Plt Count MPV Immature Gran % Neutrophils % Lymphocytes % Monocytes % Eosinophils % Basophils % Nucleated RBC % Absolute Neutrophils Absolute Lymphocytes Absolute Monocytes Absolute Eosinophils Absolute Basophils Sodium Potassium Chloride Carbon Dioxide Anion Gap BUN Creatinine Est GFR (CKD-EPI 2020) Glucose Calcium Magnesium Total Bilirubin AST ALT Alkaline Phosphatase Ammonia Total Protein Albumin TSH Urine Color Yellow Urine Clarity Clear Urine pH 5.5 Ur Specific Chester >= 1.030 H Urine Protein Trace H Urine Ketones Trace H Urine Blood Trace-intact H Urine Nitrite Negative Urine Bilirubin Negative Urine Urobilinogen 0.2 Ur Leukocyte Esterase Small H Urine RBC 3-5 H Urine WBC 10-20 H Ur Epithelial Cells Many Urine Crystals Negative Urine Bacteria Few Urine Casts 3-5 Hyaline Urine Mucus Negative Ur Culture Indicated? No/Sq. Contamination Urine Glucose Negative Urine Opiates Screen Positive A Urine Methadone Screen Negative Ur Barbiturates Screen Negative Ur Tricyclics Screen Negative Ur Amphetamines Screen Negative U Benzodiazepines Scrn Negative Urine Cocaine Screen Negative Ur THC Screen Positive A Ethyl Alcohol COVID-19 Source Nasopharynx SARS-CoV-2 (PCR) Negative Influenza Type A (PCR) Negative Influenza Type B (PCR) Negative RSV (PCR) Negative Last Vital Signs Temp 36.3 C L 12/30/22 18:13 Pulse 73 12/30/22 18:13 Resp 18 12/30/22 18:13 BP 157/74 H 12/30/22 18:13 Pulse Ox 92 12/30/22 18:13 Time Spent Time spent with Patient: 40-54 minutes Time was spent: preparing to see the patient(eg.review tests), obtaining and/or reviewing separately otained hiistory, ordering medications,tests, procedures, referring, communicating with other health career information specialist, indepentently interpreting results, counseling the patient and care coordination
[2022-12-30] MEDS: Lidocaine 5% Patch 1 PATCH TP (23:11)
[2022-12-30] MEDS: traZODone 50 MG TAB PO (23:11)
[2022-12-30] MEDS: Mirtazapine 15 MG TAB PO (23:11)
[2022-12-30 23:21] VITALS: BP 153/56; PULSE 64; RESP 20; TEMP 36.5; O2SAT 93
[2022-12-31 01:01] VITALS: BP 167/71; PULSE 66; RESP 15; TEMP 36.2; O2SAT 95
[2022-12-31] MEDS: Heparin 5,000 UNITS/ML VIAL 5000 UNITS SC ×3 (03:17→17:09)
[2022-12-31 07:09] VITALS: BP 159/77; PULSE 62; RESP 19; TEMP 34.9; O2SAT 93
[2022-12-31 07:25] LABS: Anion Gap 10.5 mmol/L (3-11); BUN 46 mg/dL (7-18); CO2 23.5 mmol/L (21.0-32.0); CREATININE 1.7 mg/dL (0.55-1.02); Calcium 9.2 mg/dL (8.5-10.1); Chloride 109 mmol/L (98-107); Estimated GFR 30.89 (mL/min/1.73m2); Glucose 116 mg/dL (74-106); Potassium 3.6 mmol/L (3.5-5.1); Sodium 143 mmol/L (136-145)
--- NOTE | 2022-12-31 09:11 | IN_ITS ---
Date of service: 12/31/22 Time of Service: 11:50 PT Notes Visit Reasons: Acute Kidney Injury, Altered Mental Status, UTI Date:?12/31/22 Referring Doctor: Chuy Salazar MD Orders: None, non-urgent evaluation order Precautions:? Fall risk Patient Profile/Admitting Diagnosis:???77 yo female with a PMH of Parkinson's disease, lewy body dementia, overactive bladder/urge incontinence, Cannabis use for pain, HTN, fibromyalgia, esophageal stricture, dysphagia, dissociative identity disorder. Gait instability and multiple falls, with inability to get up without help, in setting of PD. Acute on chronic LBP due to fall traumas. She presented to the ED because of falls, hallucinations, under recommendation of mental health provider and neighbor. PMHX:All Active Problems (Updated 12/30/22 @ 20:33 by Chuy Salazar MD) Discharge planning issues (Acute) Hallucinations (Acute) Acute UTI (Acute) Multiple falls (Acute) Delusions (Acute) Generalized weakness (Acute) Acute kidney injury (Acute) Myalgia (Acute) Trochanteric bursitis of right hip (Acute) Sacroiliac joint dysfunction of right side (Acute) Screening for colon cancer (Acute) OAB (overactive bladder) (Acute) Spondylosis of lumbar region without myelopathy or radiculopathy (Chronic) Myalgia and myositis (Chronic) Unspecified disorder of ear, bilateral (Acute) Esophagitis (Acute) Former smoker (Acute) Preop testing (Acute) Cannabis use, uncomplicated (Acute) Hiatal hernia (Chronic) Bile reflux gastritis (Acute) moderate Urge incontinence (Acute) Parkinsons (Chronic) Fibromyalgia (Acute) Lewy body dementia (Chronic) Lactose intolerance (Chronic) Esophageal stricture (Chronic) Dissociative identity disorder (Chronic) Dysphagia (Acute) Medical History Basal cell carcinoma Lipoma Cataracts, bilateral Menopause Multiple thyroid nodules Cellulitis SUGGS (dyspnea on exertion) Excessive sweating Candidiasis, vagina Weight gain DJD (degenerative joint disease), cervical Actinic keratosis Chronic back pain PTSD (post-traumatic stress disorder) Hypercholesterolemia History of substance abuse Adenomatous colon polyp Hypomagnesemia Essential tremor Depression Anxiety Urinary incontinence Glaucoma Surgical History Hx of colonoscopy History of esophagogastroduodenoscopy (EGD) (~05/08/20) History of esophagogastroduodenoscopy (EGD) 11/09/18History of surgery on arm History of back surgery EGD - MAC (02/10/16) DR. HAMLET THOMAS, with dilatation EGD - MAC (01/16/15) DR. HAMLET THOMAS, with dilatation Social History/Home Situation: Lives with who had a recent ABKA, so is of minimal assist to her if she falls. Has stair to basement, but resides on main floor with no need to utilize stairs. Admits she has been trying to walk without AD, allowing for her falls. Her has been encouraging her to use WC due to her falls, and his inability to help her. Equipment Owned/DME:WC, RC, SPC Subjective: Legs feels really shaky, causing her to fall about 4-5 times per day . She can usually feel it coming on and can slowly fall to the ground. She reports she can get up by herself. Objective: General Observation: Sitting in chair, no lines. Appears comfortable Mental Status: A&O x 3 at the time of evaluation Pain: 0/10 Vital Signs: Stable per nursing record review ROM: Grossly WFL Matthew extremities Strength: Grossly 4+/5 B UE and LE Bed Mobility/Transfers: STS close supervision CG with ambulation, RW Able to independently change position in chair and bed Gait: 50 ft RW, CG. Verbal cues for object tracking to increase stride length in setting of PD Balance: Anderson 29/56 - high risk for falls Special Tests: Mobility Limitations Standardized Measure [facility] AM-PAC 6 clicks Basic Mobility Inpatient Short Form:35% disability Informed Consent/Education:? Patient was instructed in purpose of PT consult and plan of care. Agreeable to proceed with established PT POC to achieve personal goals. Assessment: Patient presents with clinical signs and symptoms consistent with poor balance in setting of PD, with anderson evaluation and mobility assessment confirming high fall risk. Patient requires use of RW to reduce fall risk. Findings consistent with admitting diagnoses of PD and frequent falls that have resulted in mobility limitations, generalized weakness, and overall ADL decline, as demonstrated by the following impairment level findings: Anderson of 29/56, motor control impairment, movement pattern dysfunction, and weak LE's Impairments are contributing to the following functional limitations: Shuffling gait, unsteady gait, dependence on assist for mobility, Patient requires skilled PT intervention to achieve below goals to attend to functional limitation deficits and reduce fall risk. Improve use of and comfort with AD to reduce fall risk. Patient is assessed as moderate complexity based on the following: History: Per above social history and medical history Examination: Per assessment Presentation: Evolving Decision Making:? easy Goals: Goals X1 week 1. Supine-Sit independent 2. Sit-Supine independent 3. Sit-Stand independent @ RW 4. Stand-Sit independent 5. Bed-Chair independent w/RW 6. Chair-Bed independent w/RW 7. 100ft tolerated with gait on level surface with use of RW, distant supervision 8. Stair negotiation with distant supervision of 5 steps, with 1 rail to assist, and supervision 9. Independent with home exercise program 10. Anderson Plan of Care/Treatment Plan: 1-2x/day, 7 days/week x 1 week. Plan of care has been reviewed with the FARM WORKER providing the service under Physical Therapy direction. Initiate Physical Therapy intervention for pain management as needed, strengthening, bed mobility, transfers, gait, stairs, balance training, and use of assistive device. DISCHARGE RECOMMENDATIONS: ? Home with outpatient PT with referral for [facility]. TREATMENT CODE(s): 76703 Treatment TIME: 30 min
[2022-12-31] MEDS: Polyethylene Glycol 3350 17 GM PACKET PO (09:18)
[2022-12-31] MEDS: Gabapentin 100 MG CAP PO ×3 (09:19→21:44)
[2022-12-31] MEDS: buPROPion-CR 150 MG TABCR PO ×2 (09:19→21:44)
[2022-12-31] MEDS: dilTIAZem CD 180 MG CAPCR 360 MG PO (09:19)
[2022-12-31] MEDS: Senna TAB 2 TAB PO (09:19)
[2022-12-31] MEDS: Celecoxib 100 MG CAP PO ×2 (09:19→21:43)
[2022-12-31] MEDS: Memantine 5 MG TAB PO ×2 (09:19→21:43)
[2022-12-31] MEDS: Carbidopa 25/Levodopa 100 TAB PO ×3 (09:19→21:43)
[2022-12-31] MEDS: Losartan 50 MG TAB 100 MG PO (09:19)
[2022-12-31] MEDS: LIDOCAINE Patch Removal 1 EACH TP (09:22)
--- NOTE | 2022-12-31 09:26 | PDOC.CMIN ---
Date of service: 12/31/22 Time of Service: 09:26 Care Management Initial Assmt Initial Assessment REASON FOR HOSPITALIZATION:: WILL, multiple falls, AMS PREVIOUS FUNCTIONAL STATUS/SOCIAL/FAMILY SUPPORTS:: Alyson lives in [place] a single family home with her Bronson. 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 Alyson has 2 sons who live out of [facility]. One son lives in [place] and the other is in [place]. Alyson has Parkinson's disease and Lewy body dementia but remains independent with ADLs. She does not currently receive any community services. CURRENT FUNCTIONAL STATUS:: Alyson was sitting up in bed when CM met with her. She was cooperative but reserved in manner. She informed CM that her had an above the knee amputation last month and has been unable to offer any assistance. She has been having frequent falls, possibly related to her Parkinson's Disease. She explained that her legs start to shake and she knows she will fall so she lowers herself to the ground. Her is unable to help her up at this time. ADVANCE DIRECTIVES:: On file. [facility] Has patient been provided with info about the portal/API?: Yes Did the patient sign up for the portal?: No CODE STATUS:: Full Code INSURANCE COVERAGE / FINANCIAL ISSUES:: Medicare Medicaid CURRENT HOME/COMMUNITY SERVICES/EQUIPMENT:: owns a cane, walker, crutches and wheelchair. her encouraged her to use the wheelchair and Alyson feels this allowed her legs to become weaker. PRIMARY CARE PHYSICIAN:: Rosario Reed POTENTIAL DISCHARGE NEEDS:: follow up with PCP, Neurology and plan of care PATIENT/FAMILY EDUCATION NEEDS:: review of discharge instructions, limitations, activity, follow up plan, discuss Ask Me Three TRANSPORTATION:: to be determined by disposition PLAN:: Alyson's discharge plan is unclear at this time. She may need short or marine oil terminal superintendent care in a long term facility given her Parkinson's Disease, falls and altered mental status. CM will follow and continue to assess for discharge needs and concerns. [facility] All Active Problems (Updated 12/30/22 @ 20:33 by Chuy Salazar MD) Discharge planning issues (Acute) Hallucinations (Acute) Acute UTI (Acute) Multiple falls (Acute) Delusions (Acute) Generalized weakness (Acute) Acute kidney injury (Acute) Myalgia (Acute) Trochanteric bursitis of right hip (Acute) Sacroiliac joint dysfunction of right side (Acute) Screening for colon cancer (Acute) OAB (overactive bladder) (Acute) Spondylosis of lumbar region without myelopathy or radiculopathy (Chronic) Myalgia and myositis (Chronic) Unspecified disorder of ear, bilateral (Acute) Esophagitis (Acute) Former smoker (Acute) Preop testing (Acute) Cannabis use, uncomplicated (Acute) Hiatal hernia (Chronic) Bile reflux gastritis (Acute) moderate Urge incontinence (Acute) Parkinsons (Chronic) Fibromyalgia (Acute) Lewy body dementia (Chronic) Lactose intolerance (Chronic) Esophageal stricture (Chronic) Dissociative identity disorder (Chronic) Dysphagia (Acute) Medical History Basal cell carcinoma Lipoma Cataracts, bilateral Menopause Multiple thyroid nodules Cellulitis SUGGS (dyspnea on exertion) Excessive sweating Candidiasis, vagina Weight gain DJD (degenerative joint disease), cervical Actinic keratosis Chronic back pain PTSD (post-traumatic stress disorder) Hypercholesterolemia History of substance abuse Adenomatous colon polyp Hypomagnesemia Essential tremor Depression Anxiety Urinary incontinence Glaucoma Surgical History Hx of colonoscopy History of esophagogastroduodenoscopy (EGD) (~05/08/20) History of esophagogastroduodenoscopy (EGD) 11/09/18 History of surgery on arm History of back surgery EGD - MAC (02/10/16) DR. HAMLET THOMAS, with dilatation EGD - MAC (01/16/15) DR. HAMLET THOMAS, with dilatation Social History Smoking/Tobacco Use Status: Former Tobacco Use Quit Date: 03/20/75 Smoking risk assessment performed?: Yes Alcohol Intake: never Drug use: Daily Substance use type: marijuana Details: smoke and edibles Housing: house Do you feel safe at home: Yes Do you feel safe in your relationship?: Yes
[2022-12-31] MEDS: Normal Saline Flush 10 ML SYR IVP ×3 (10:11→21:44)
[2022-12-31] MEDS: Normal Saline 500 ML 100 ML IV (10:12)
[2022-12-31] MEDS: cefTRIAXone 1 GM/50 ML BAG IVPB (10:13)
[2022-12-31 15:45] VITALS: BP 155/77; PULSE 63; RESP 18; TEMP 36.4; O2SAT 95
--- NOTE | 2022-12-31 16:22 | PGE_ITS ---
Date of Service Date of service: 12/31/22 Time of Service: 16:22 Assessment and Plan Assessment and plan (1) Multiple falls: Status: Acute Assessment and plan: She describes her legs begin to shake and feel weak. She is able to then let her self down to the floor. PT consulted. She walked in [place] with PT using a walker. (2) Hallucinations: Status: Acute Assessment and plan: Medication related? Lewy body dementia progression? Cannibis related? There is some coincidence with the onset of the hallucinations with starting amantadine. There is a potential interaction with this and memantine. Will hold the later. (3) Lewy body dementia: Status: Chronic Assessment and plan: Source of her hallucinations potentially. (4) Acute kidney injury: Status: Acute Assessment and plan: Poor intake of fluids recently. IV bolus and 1 liter of IV fluids administered. Creatinine improved. Monitor BUN and creatinine. (5) Generalized weakness: Status: Acute Assessment and plan: PT consulted. Encourage good dietary intake. May be related to medications. On mirtazapine and trazadone as well as cannibis gummies. (6) Acute UTI: Status: Acute Assessment and plan: Questionable UTI but sample had many epithelial cells and didn't trigger a cx. Given rocephin in the ED. Continue for 2 more doses. (7) HTN (hypertension): Status: None Assessment and plan: On losartan. Monitor. (8) Dysphagia: Status: Acute Assessment and plan: Has h/o esophageal stricture. Monitor for need of food consistency modification. (9) Discharge planning issues: Status: Acute Assessment and plan: She is a full code. She could benefit from a palliative consult; may need to occur as outpt. Likely home with HH PT Subjective Subjective Patient reports: no new complaints, feels better, tolerating a regular diet and afebrile; denies nausea or vomiting Interval history since last seen: Worked with PT today and felt she did well Exam Narrative Exam Narrative: Pt is sitting in chair. Pleasant and conversant. Const General: no acute distress and not ill appearing Orientation: alert, awake and oriented x3 (She describes her hallucinations and falls ) HENMT Head: normal to inspection and atraumatic Ears: hearing grossly normal bilaterally Mouth: moist mucous membranes Eyes General: appearance normal, both eyes and all related structures Sclera: sclerae normal Neck Neck: full ROM and nontender Resp Effort & Inspection: normal respiratory effort and able to speak in complete sentences Auscultation: clear to auscultation bilaterally Cardio Rate: regular rate Rhythm: regular rhythm Heart Sounds: S1 normal and S2 normal Pulses: radial pulses present GI Palpation: soft and nontender Auscultation: normal bowel sounds Back/Spine/Pelvis Thoracic/Lumbar Spine: No paraspinal tenderness and lumbar spinal tenderness (mid lumbar) Pelvis: no pain with anterior-posterior compression and no pain with lateral compression Skin General skin exam: no rashes or lesions noted Neuro General: patient alert, patient awake, patient oriented x3, moves all extremities and no focal motor deficits Cranial Nerves: facial strength normal Speech: speech normal Motor: other (Generalized weakness ) Extrem General: no pedal edema and no calf tenderness Psych Appearance: grossly normal Affect: normal affect Objective Last Vital Signs Temp 36.4 C L 12/31/22 15:45 Pulse 63 12/31/22 15:45 Resp 18 12/31/22 15:45 BP 155/77 H 12/31/22 15:45 Pulse Ox 95 12/31/22 15:45 Laboratory Results - last 24 hr 12/31/22 06:17 Sodium 143 Potassium 3.6 Chloride 109 H Carbon Dioxide 23.5 Anion Gap 10.5 BUN 46 H Creatinine 1.7 H Est GFR (CKD-EPI 2020) 30.89 Glucose 116 H Calcium 9.2 Time Spent with Patient Time Spent with Patient: 25-34 minutes Time was spent: preparing to see the patient(eg.review tests), obtaining and/or reviewing separately otained hiistory, ordering medications,tests, procedures, referring, communicating with other health palliative care coordinator, indepentently interpreting results, counseling the patient and care coordination
[2022-12-31] MEDS: Mirtazapine 15 MG TAB PO (21:43)
[2022-12-31] MEDS: traZODone 50 MG TAB PO (21:44)
[2022-12-31] MEDS: Lidocaine 5% Patch 1 PATCH TP (21:46)
[2023-01-01] MEDS: Heparin 5,000 UNITS/ML VIAL 5000 UNITS SC ×2 (00:50→07:58)
[2023-01-01 02:13] VITALS: BP 148/65; PULSE 68; RESP 18; TEMP 36.5; O2SAT 94
[2023-01-01 07:08] LABS: Anion Gap 9.2 mmol/L (3-11); BUN 38 mg/dL (7-18); CO2 24.8 mmol/L (21.0-32.0); CREATININE 1.4 mg/dL (0.55-1.02); Calcium 9.4 mg/dL (8.5-10.1); Chloride 107 mmol/L (98-107); Estimated GFR 38.99 (mL/min/1.73m2); Glucose 122 mg/dL (74-106); Potassium 4.1 mmol/L (3.5-5.1); Sodium 141 mmol/L (136-145)
[2023-01-01] MEDS: Polyethylene Glycol 3350 17 GM PACKET PO (07:58)
[2023-01-01] MEDS: Carbidopa 25/Levodopa 100 TAB PO ×2 (07:59→14:47)
[2023-01-01] MEDS: Losartan 50 MG TAB 100 MG PO (07:59)
[2023-01-01] MEDS: Acetaminophen 325 MG TAB PO (07:59)
[2023-01-01] MEDS: buPROPion-CR 150 MG TABCR PO (07:59)
[2023-01-01] MEDS: Gabapentin 100 MG CAP PO ×2 (07:59→14:47)
[2023-01-01] MEDS: Senna TAB 2 TAB PO (07:59)
[2023-01-01 08:00] VITALS: BP 180/95; PULSE 62; RESP 18; TEMP 35.7; O2SAT 95
[2023-01-01] MEDS: dilTIAZem CD 180 MG CAPCR 360 MG PO (08:00)
[2023-01-01] MEDS: Memantine 5 MG TAB PO (08:00)
[2023-01-01] MEDS: Celecoxib 100 MG CAP PO (08:00)
[2023-01-01] MEDS: LIDOCAINE Patch Removal 1 EACH TP (08:02)
[2023-01-01] MEDS: Normal Saline Flush 10 ML SYR IVP (09:52)
[2023-01-01] MEDS: cefTRIAXone 1 GM/50 ML BAG IVPB (09:52)
--- NOTE | 2023-01-01 10:29 | PHA.REVIEW2 ---
Pharmacy Admission Review Admission Clinical Review Admission Pharmacy Review: (Updated 12/30/22 @ 20:33 by Chuy Salazar MD) Discharge planning issues (Acute) Hallucinations (Acute) Acute UTI (Acute) Multiple falls (Acute) Delusions (Acute) Generalized weakness (Acute) Acute kidney injury (Acute) Dysphagia (Acute) atorvastatin Allergy (Intermediate, Verified 12/30/22 11:05) lisinopril Adverse Reaction (Intermediate, Verified 12/30/22 11:05) cough simvastatin Adverse Reaction (Intermediate, Verified 12/30/22 11:05) overall body ache Sulfa (Sulfonamide Antibiotics) Adverse Reaction (Intermediate, Verified 12/30/22 11:05) my symptoms got worse Resuscitation Status Full Code Height 5 ft 1.81 in Weight 66.6 kg Comments Comments/Follow Ups: Patient is a fall risk, hallucinations, ?dimentia progression, parkinsons. Drug screen showed opiates and THC which may have been obtained from her , and she used THC gummies. Many meds could potentially be causing weakness, mental status changes: Amantadine, Trazodone, Mirtazapine, Gabapentin...MD aware Pharmacy Admission Review Renal Dosing Renal Dosing: CrCl~30ml/min (improved) BUN 38 mg/dL (7-18) H 01/01/23 06:25 Creatinine 1.4 mg/dL (0.55-1.02) H 01/01/23 06:25 Medications needing adjustments: Intervened (Will discuss w/ about dose adjustments on Bupropion and Celebrex for WILL) Anticoagulation Anticoagulation: Hgb 12.0 g/dL (11.2-15.7) 12/30/22 11:50 Hct 36.4 % (36.0-46.0) 12/30/22 11:50 Plt Count 292 10^3/uL (130-400) 12/30/22 11:50 Creatinine 1.4 mg/dL (0.55-1.02) H 01/01/23 06:25 DVT Prophylaxis: Reviewed Medications: Heparin Relevant Labs Relevant Labs: Sodium 141 mmol/L (136-145) 01/01/23 06:25 Potassium 4.1 mmol/L (3.5-5.1) 01/01/23 06:25 Chloride 107 mmol/L (98-107) 01/01/23 06:25 Magnesium 2.1 mg/dL (1.8-2.4) 12/30/22 11:50 Cardiac Review Cardiac Review: BP elevated 180/95 (Diltiazem, Losartan) QTc Review QTc: N/A (no EKG) Pharmacy Antibiotic Review Relevant Labs: Mirco Urine...slight UTI Pharmacy Antibiotic Activity: Antibiotic de-escalation (Rocephin 1 gram IV x3 days completed) Comments Comments/Follow Ups: Patient is a fall risk, hallucinations, ?dimentia progression, parkinsons. Drug screen showed opiates and THC which may have been obtained from her , and she used THC gummies. Many meds could potentially be causing weakness, mental status changes: Amantadine, Trazodone, Mirtazapine, Gabapentin... aware
--- NOTE | 2023-01-01 12:44 | W.PM.DS.N ---
Date of service: 01/01/23 Time of Service: 12:44 DS: Diagnosis Discharge Diagnosis (1) Multiple falls: Status: Acute Asessment and Plan: She describes her legs begin to shake and feel weak. She is able to then let her self down to the floor. Certainly her Parkinson's disease places her at risk, but she has been using a wheelchair more often at the encouragement of her who is concerned about her safety. Likely deconditioned d/t less ambulation. PT consulted and has progressed while using a 4-wheeled walker. She endorses willingness to use her walker most of the time rather than a wheelchair. PT ordered. (2) Hallucinations: Status: Acute Asessment and Plan: Medication related? Lewy body dementia progression? Cannibis related? There is some coincidence with the onset of the hallucinations with starting amantadine. There is a potential interaction with this and memantine. I will leave any changes in either of those medications to her PCP and/or neurologist at [facility] [place] [facility]. (3) Lewy body dementia: Status: Chronic Asessment and Plan: Cont neurology relationship. (4) Acute kidney injury: Status: Acute Asessment and Plan: Creatinine 1.9 on admission; now 1.4 Encourage good oral hydration (5) Acute UTI: Status: Acute Asessment and Plan: UA positive but did not trigger a culture. She did receive Ceftriaxone x3 doses. (6) HTN (hypertension): Status: None Asessment and Plan: Continue Losartan. (7) Discharge planning issues: Status: Acute Asessment and Plan: Returning home with home health nursing and PT. Discharge Plan Disposition Patient Disposition: Home W/Home Health Services Condition: Improving Discharge Details Reason For Visit: Acute Kidney Injury, Altered Mental Status, UTI Admit Date/Time: 12/30/22 15:01 Admit Provider: Chuy Salazar Attending Provider: Chuy Salazar Primary Care Provider: Rosario Reed Hospital Course Hospital Course: This is a 77 yo female with a PMH of Parkinson's disease, lewy body dementia, overactive bladder/urge incontinence, Cannabis use for pain, HTN, fibromyalgia, esophageal stricture, dysphagia, dissociative identity disorder. She presented to the ED becuase of falls, hallucinations. Her mental health therapist and neighbor brought her to the ED because of these concerns. She lives with her who is recently s/p an [id number] amputation and pt states he is physically doing OK but is becoming depressed. She has had multiple falls and has had to lie on the ground for up to several hours on occasion before she could get up; at times needing help from others. Back pain secondary to the falls. She endorses seeing people in her home, children following her and a plane flying on it's side toward the ground. She is aware these aren't real and they no longer frighten her. No auditory hallucinations. Lab in the ED was unremarkable other than a mildly low K of 3.4 and a creatinine of 1.9, BUN of 50. She endorses not drinking as much as usual lately. UA showed concentrated urine with many epithelial cells, small leuk est. and 10-20 WBCs. This did not trigger a culture. Toxicology was positive for opiates and THC. She doesn't have opiates on her home medication list but she did mention to the ED nurse that her gave her 2 of his pain pills. She does endorse using cannibis gummies. CT head showed no intracranial processes. XR lumbar spine with severe degenerative changes and scoliosis. See Diagnosis PCP f/u in 1-2 weeks. Home Meds and New Rx's Prescriptions: Continued diltiazem HCl [Cardizem LA] 360 mg tablet extended release 24 hr 360 mg PO DAILY bisacodyl [Dulcolax (bisacodyl)] 5 mg tablet,delayed release (DR/EC) 5 mg PO ONCE Qty: 4 0RF polyethylene glycol 3350 17 gram/dose powder 238 g PO ONCE Qty: 238 0RF Rx Instructions: Colonoscopy Bowel Prep- Per Instructions celecoxib [Celebrex] 100 mg capsule 100 mg PO BID cholecalciferol (vitamin D3) 25 mcg (1,000 unit) capsule 25 mcg PO DAILY hydroxyzine HCl 10 mg tablet 10 mg PO TID PRN polyethylene glycol 3350 [Miralax] 17 gram powder in packet 17 g PO DAILY PRN mirtazapine 15 mg tablet 15 mg PO QHS albuterol sulfate [ProAir HFA] 90 mcg/actuation HFA aerosol inhaler 2 puff inhalation Q6H PRN memantine 5 mg tablet 5 mg PO BID losartan 100 mg tablet 100 mg PO DAILY trazodone 50 mg tablet 50 mg PO QHS PRN sennosides [Natural Senna Laxative] 8.6 mg tablet 17.2 mg PO DAILY bupropion HCl [Wellbutrin SR] 150 mg Tablet Sustained-Release 12 Hr 150 mg PO BID magnesium L-lactate 84 mg Tablet Extended Release 84 mg PO HS brimonidine-timolol [Combigan] 0.2-0.5 % Drops 1 drp OPHTHALMIC (EYE) BID fluticasone propionate 50 mcg/actuation spray,suspension 1 spray INTRANASAL BID PRN gabapentin 100 mg capsule 100 mg PO TID carbidopa-levodopa 25-100 mg tablet 2 tab PO TID pantoprazole [Protonix] 40 mg tablet,delayed release (DR/EC) 40 mg PO DAILY Qty: 90 4RF amantadine HCl 100 mg capsule 100 mg PO DAILY furosemide 20 mg tablet 20 mg PO DAILY Patient Comments: Take 1 tablet by mouth once a day Discontinued cyclobenzaprine 10 mg tablet 10 mg PO BID Hold Instructions: Changed by Provider naproxen 500 mg Tablet 500 mg PO BID Discharge Instructions Activity:: Activity as Tolerated Equipment/Supplies:: Walker Diet:: As Tolerated Discharge Orders Discharge Orders: Discharge Order (Routine); Ordered 01/01/23 Ordered By: Chuy Salazar DS: Summary Time Spent with Patient providing and/or coordinating discharge services: Greater than 30 minutes Status at Discharge Functional status at discharge: uses cane/walker Overall status at discharge: patient is progressing back to baseline Mental Status: mental status grossly normal Speech and Movement: speech clear Mood: congruent mood Affect: normal affect Exam Narrative Exam Narrative: Pt is sitting in chair. Pleasant and conversant. Const General: no acute distress and not ill appearing Orientation: alert, awake and oriented x3 (She describes her hallucinations and falls ) [facility] Head: normal to inspection and atraumatic Ears: hearing grossly normal bilaterally Mouth: moist mucous membranes Eyes General: appearance normal, both eyes and all related structures Sclera: sclerae normal Neck Neck: full ROM and nontender Resp Effort & Inspection: normal respiratory effort and able to speak in complete sentences Auscultation: clear to auscultation bilaterally Cardio Rate: regular rate Rhythm: regular rhythm Heart Sounds: S1 normal and S2 normal Pulses: radial pulses present GI Palpation: soft and nontender Auscultation: normal bowel sounds Back/Spine/Pelvis Thoracic/Lumbar Spine: No paraspinal tenderness and lumbar spinal tenderness (mid lumbar) Pelvis: no pain with anterior-posterior compression and no pain with lateral compression Skin General skin exam: no rashes or lesions noted Neuro General: patient alert, patient awake, patient oriented x3, moves all extremities and no focal motor deficits Cranial Nerves: facial strength normal Speech: speech normal Motor: other (Generalized weakness ) Extrem General: no pedal edema and no calf tenderness Psych Appearance: grossly normal Mental Status: mental status grossly normal Speech and Movement: speech clear Mood: congruent mood Affect: normal affect DS: Data Vitals/I&O Vitals and I&O: Vital Signs Temperature 35.7 C L 01/01/23 08:00 Temperature Source Tympanic 01/01/23 08:00 Pulse 62 01/01/23 08:00 Pulse Rhythm Regular 01/01/23 02:10 Respiratory Rate 18 01/01/23 08:00 Respiratory Effort Normal, Non-Labored 01/01/23 02:10 Respiratory Depth Normal 01/01/23 02:10 Respiratory Pattern Normal 01/01/23 02:10 Blood Pressure 180/95 H 01/01/23 08:00 Blood Pressure Position Sitting 12/30/22 11:00 Pulse Oximetry 95 01/01/23 08:00 Oxygen Delivery Method Room Air 01/01/23 08:00 Oxygen Flow Rate 0 01/01/23 08:00 Pain Level 5 01/01/23 08:50 Comment Pt. denies pain at this time. 12/31/22 11:24 Intake & Output 12/31/22 01/01/23 01/01/23 23:59 11:59 23:59 Intake Total 250 / 1711.667 Output Total 600 / 670 100 / 100 Balance -350 / 1041.667 -100 / -100 Intake: IV 10 131.667 Oral 240 / 1580 Output: Urine 600 / 670 100 / 100 Other: Urine Color Yellow Yellow Urine Appearance Cloudy Clear Urine Odor Normal Normal Comment patient was also grossly incontinent Incontinent x1 of a moderate amount of urine in the briefs/Void x1 in the toilet. Briefs were changed. Stool Size Small Stool Characteristics Formed Hard Brown Voiding Methods Toilet Toilet Diaper Incontinent Data Completed and Pending Labs on day of discharge: Labs from last 24 hours 01/01/23 06:25 Sodium 141 Potassium 4.1 Chloride 107 Carbon Dioxide 24.8 Anion Gap 9.2 BUN 38 H Creatinine 1.4 H Est GFR (CKD-EPI 2020) 38.99 Glucose 122 H Calcium 9.4 PFSH All Active Problems (Updated 12/30/22 @ 20:33 by Chuy Salazar MD) Discharge planning issues (Acute) Hallucinations (Acute) Acute UTI (Acute) Multiple falls (Acute) Delusions (Acute) Generalized weakness (Acute) Acute kidney injury (Acute) Myalgia (Acute) Trochanteric bursitis of right hip (Acute) Sacroiliac joint dysfunction of right side (Acute) Screening for colon cancer (Acute) OAB (overactive bladder) (Acute) Spondylosis of lumbar region without myelopathy or radiculopathy (Chronic) Myalgia and myositis (Chronic) Unspecified disorder of ear, bilateral (Acute) Esophagitis (Acute) Former smoker (Acute) Preop testing (Acute) Cannabis use, uncomplicated (Acute) Hiatal hernia (Chronic) Bile reflux gastritis (Acute) moderate Urge incontinence (Acute) Parkinsons (Chronic) Fibromyalgia (Acute) Lewy body dementia (Chronic) Lactose intolerance (Chronic) Esophageal stricture (Chronic) Dissociative identity disorder (Chronic) Dysphagia (Acute) Medical History Basal cell carcinoma Lipoma Cataracts, bilateral Menopause Multiple thyroid nodules Cellulitis SUGGS (dyspnea on exertion) Excessive sweating Candidiasis, vagina Weight gain DJD (degenerative joint disease), cervical Actinic keratosis Chronic back pain PTSD (post-traumatic stress disorder) Hypercholesterolemia History of substance abuse Adenomatous colon polyp Hypomagnesemia Essential tremor Depression Anxiety Urinary incontinence Glaucoma Surgical History Hx of colonoscopy History of esophagogastroduodenoscopy (EGD) (~05/08/20) History of esophagogastroduodenoscopy (EGD) 11/09/18 History of surgery on arm History of back surgery EGD - [facility] (02/10/16) DR. HAMLET THOMAS, with dilatation EGD - [facility] (01/16/15) DR. HAMLET THOMAS, with dilatation Social History Smoking/Tobacco Use Status: Former Tobacco Use Quit Date: 03/20/75 Smoking risk assessment performed?: Yes Alcohol Intake: never Drug use: Daily Substance use type: marijuana Details: smoke and edibles Housing: house Do you feel safe at home: Yes Do you feel safe in your relationship?: Yes Time Spent with Patient Time Spent with Patient: 45-69 minutes Time was spent: preparing to see the patient(eg.review tests), obtaining and/or reviewing separately otained hiistory, referring, communicating with other health critical care technician, indepentently interpreting results, counseling the patient and care coordination
--- NOTE | 2023-01-01 13:02 | PDOC.HHF2F_ITS ---
Home Health Referral Home Health Orders Clinical synopsis of why skilled professionals are needed: Ms Galvez has dx of Parkinson's disease and lewy body dementia. She has been falling frequently at home. Of note, she has been using a wheelchair more frequently lately rather than her walker. Her has encouraged this out of concerns for her safety. With use of a FWW she worked with PT and was felt to be safe to return home with home health PT. She has also been having hallucinations that she fully describes and is aware that they are not real. These could be related to her Parkinson's, lewy body dementia or also her use of cannibis gummies for pain. She denies the later are not the issue. Medical diagnosis necessitation home health referral: Frequent falls and progressive weakness Registered Nurse: Check all that apply Instruct on new or changed medication(s)/assess compliance: Ordered Physical Therapist: Check all that apply Increase strength & endurance for safe mobility at home: Ordered Home Bound Status Requires the aid of supportive device (check all that apply): Walker Encounter Date and Reason: I certify that a FTF encounter for this patient was performed on January 01, 2023 and that such encounter was related to the primary reason the patient requires home health services. The encounter was conducted in the following manner: * By me as the certifying physician, CASINO [employer] WORKER, PA or * By an inpatient physician, CASINO GAMING WORKER or PA during an inpatient stay who communicated findings to me, Certification And Authentication I certify that I composed the above information based on my clinical judgment relating to this patient's medical condition and, if applicable, clinical findings communicated to me by the NPP or inpatient physician who performed the FTF encounter. Name of Provider that will be monitoring home health services: Chuy Salazar
--- NOTE | 2023-01-01 13:31 | PT.INTREAT ---
PT Notes Visit Reasons: Acute Kidney Injury, Altered Mental Status, UTI Inpatient Physical Therapy Treatment Note [facility] Date: 01/01/23 SUBJECTIVE: Alyson states that she is hoping to go home today, but there was talk about going to a rehab. OBJECTIVE: []? BED MOBILITY/TRANSFERS? Rolling L/R: I Supine-sit: I ? Sit-supine: I ? Sit-stand: I? Stand-sit: I ? Provided skilled cues and instruction on performance and technique throughout. ? Therapeutic Exercises ([id number]): Direct one-on-one instruction in therapeutic exercises to develop strength, endurance, range of motion and flexibility. ? Exercises ?LAQ x10, seated march, hip ab/add x10 ea Ambulation ? Assistive Device:FWW ? Weight bearing:full Assist: SBA? Distance:?approx 200'? Deviation:cues to stand upright and take longer strides.? ASSESSMENT:? tolerated session well. Able to correct her gait with verbal cues. No LOB or SOB noted. Pt in recliner with alarm on. PLAN: continue to work on her functional mobility per POC TREATMENT CODE/TIME: 20 min [id number]
--- NOTE | 2023-01-01 16:05 | PDOC.CMDIS ---
Date of service: 01/01/23 Time of Service: 16:05 LACE Index Scoring Tool Questions: Length of Stay (in days): 2 Was the patient admitted via the E.D.?: Yes Comorbidities: Dementia E.D. Visits: 1 Answers: Total Score: 9 Risk of Readmission: Low Risk Care Management Discharge Plan Reason for Hospitalization: WILL, multiple falls, AMS Discharge Plan: Alyosn will be discharged home with new home health services for PT. A referral was also sent to [facility] for Options Counseling, Meals on Wheels and community case management. Alyson will follow up with her PCP and plan of care and transport with a friend. Patient/Family Education Needs: review of discharge instructions, limitations, activity, follow up plan, discuss Ask Me Three Services Needed at Discharge: Home Health Care Services
--- NOTE | 2023-01-03 15:06 | PT.INDS ---
Date of service: 01/03/23 Time of Service: 15:06 PT Notes Visit Reasons: Acute Kidney Injury, Altered Mental Status, UTI Physical Therapy Inpatient Discharge Summary Date:?01/03/23 Date of service: 12/31/2022 through 01/01/2023 This is a clinical summary of care provided for the duration of dates listed above. No charge was made in the completion of this documentation. Referring Doctor: Chuy Salazar MD Orders: None, non-urgent evaluation order Precautions:? Fall risk Patient Profile/Admitting Diagnosis:??? 77 yo female with a PMH of Parkinson's disease, lewy body dementia, overactive bladder/urge incontinence, Cannabis use for pain, HTN, fibromyalgia, esophageal stricture, dysphagia, dissociative identity disorder. Gait instability and multiple falls, with inability to get up without help, in setting of PD. Acute on chronic LBP due to fall traumas. She presented to the ED because of falls, hallucinations, under recommendation of mental health provider and neighbor. Patient has been medically cleared to go home with continued home health PT services PMHX: All Active Problems (Updated 12/30/22 @ 20:33 by Rossana Salazar MD) Discharge planning issues (Acute) Hallucinations (Acute) Acute UTI (Acute) Multiple falls (Acute) Delusions (Acute) Generalized weakness (Acute) Acute kidney injury (Acute) Myalgia (Acute) Trochanteric bursitis of right hip (Acute) Sacroiliac joint dysfunction of right side (Acute) Screening for colon cancer (Acute) OAB (overactive bladder) (Acute) Spondylosis of lumbar region without myelopathy or radiculopathy (Chronic) Myalgia and myositis (Chronic) Unspecified disorder of ear, bilateral (Acute) Esophagitis (Acute) Former smoker (Acute) Preop testing (Acute) Cannabis use, uncomplicated (Acute) Hiatal hernia (Chronic) Bile reflux gastritis (Acute) moderate Urge incontinence (Acute) Parkinsons (Chronic) Fibromyalgia (Acute) Lewy body dementia (Chronic) Lactose intolerance (Chronic) Esophageal stricture (Chronic) Dissociative identity disorder (Chronic) Dysphagia (Acute) Medical History Basal cell carcinoma Lipoma Cataracts, bilateral Menopause Multiple thyroid nodules Cellulitis SUGGS (dyspnea on exertion) Excessive sweating Candidiasis, vagina Weight gain DJD (degenerative joint disease), cervical Actinic keratosis Chronic back pain PTSD (post-traumatic stress disorder) Hypercholesterolemia History of substance abuse Adenomatous colon polyp Hypomagnesemia Essential tremor Depression Anxiety Urinary incontinence Glaucoma Surgical History Hx of colonoscopy History of esophagogastroduodenoscopy (EGD) (~05/08/20) History of esophagogastroduodenoscopy (EGD) 11/09/18History of surgery on arm History of back surgery EGD - [facility] (02/10/16) DR. HAMLET THOMAS, with dilatation EGD - [facility] (01/16/15) DR. HAMLET THOMAS, with dilatation Social History/Home Situation: Lives with who had a recent ABKA, so is of minimal assist to her if she falls. Has stair to basement, but resides on main floor with no need to utilize stairs. Admits she has been trying to walk without AD, allowing for her falls. Her has been encouraging her to use WC due to her falls, and his inability to help her. Equipment Owned/DME: WC, RC, SPC Subjective: NT. See most recent BUSINESS MANAGEMENT INTERN notes. Objective: General Observation: NT. See most recent BUSINESS MANAGEMENT INTERN notes. Mental Status: NT. See most recent BUSINESS MANAGEMENT INTERN notes. Pain: NT. See most recent BUSINESS MANAGEMENT INTERN notes. Vital Signs: NT. See most recent BUSINESS MANAGEMENT INTERN notes. ROM: Grossly WFL Matthew extremities Strength: Grossly 4+/5 B UE and LE BED MOBILITY/TRANSFERS? Rolling L/R: I Supine-sit: I ? Sit-supine: I ? Sit-stand: I? Stand-sit: I ? GAIT: ? Assistive Device:FWW ? Weight bearing:full Assist: SBA? Distance:?approx 200'? Deviation:cues to stand upright and take longer strides.? Balance: Anderson 29/56 - high risk for falls Assessment: Patient continues to present with clinical signs and symptoms consistent with poor balance in setting of PD, with anderson evaluation and mobility assessment confirming high fall risk. Patient requires use of RW to reduce fall risk. Findings consistent with admitting diagnoses of PD and frequent falls that have resulted in mobility limitations, generalized weakness, and overall ADL decline, as demonstrated by the following impairment level findings: Anderson of 29/56, motor control impairment, movement pattern dysfunction, and weak LE's. Will benefit from the LVST Program at the outpatient clinic. Impairments are contributing to the following functional limitations: Shuffling gait, unsteady gait, dependence on assist for mobility, Patient requires skilled PT intervention to achieve below goals to attend to functional limitation deficits and reduce fall risk. Improve use of and comfort with AD to reduce fall risk. Goals: Goals X1 week 1. Supine-Sit independent MET 2. Sit-Supine independent MET 3. Sit-Stand independent @ RW MET 4. Stand-Sit independent MET 5. Bed-Chair independent w/RW MET 6. Chair-Bed independent w/RW MET 7. 100 ft tolerated with gait on level surface with use of RW, distant supervision NOT MET 8. Stair negotiation with distant supervision of 5 steps, with 1 rail to assist, and supervision NOT MET 9. Independent with home exercise program NOT MET 10. Anderson NOT MET DISCHARGE RECOMMENDATIONS: HH PT vs. Home with outpatient PT with referral for [facility] program. TREATMENT CODE/TIME: MT Thank you for the opportunity to participate in the care of this patient. Yesica Henriquez PT, DPT, CLT [facility] [place], [place]
== END 2023-01-01 14:58 | disposition home health service (06) | DRG 57 ==
LOC: ER 15:32 → MS 17:43
PROVIDERS: Admitting Provider Family Medicine; Emergency Provider Nurse Practitioner Family; PCP Family Medicine; Visit Provider Family Medicine
DX: G31.83 Neurocognitive disorder with Lewy bodies; N17.9 Acute kidney failure, unspecified; F02.82 Dementia in other diseases classified elsewhere, unspecified severity, with psychotic disturbance; N39.0 Urinary tract infection, site not specified; G20.A1 Parkinson's disease without dyskinesia, without mention of fluctuations; F12.90 Cannabis use, unspecified, uncomplicated; F44.81 Dissociative identity disorder; R29.6 Repeated falls; M79.7 Fibromyalgia; R53.1 Weakness; M70.61 Trochanteric bursitis, right hip; M53.3 Sacrococcygeal disorders, not elsewhere classified; N32.81 Overactive bladder; M47.816 Spondylosis without myelopathy or radiculopathy, lumbar region; Z87.891 Personal history of nicotine dependence; K44.9 Diaphragmatic hernia without obstruction or gangrene; N39.41 Urge incontinence; K29.60 Other gastritis without bleeding; E73.9 Lactose intolerance, unspecified; K22.2 Esophageal obstruction; G89.29 Other chronic pain; M54.9 Dorsalgia, unspecified; F43.10 Post-traumatic stress disorder, unspecified; F19.11 Other psychoactive substance abuse, in remission; E83.42 Hypomagnesemia; E87.6 Hypokalemia; E78.00 Pure hypercholesterolemia, unspecified; G25.0 Essential tremor; F32.A Depression, unspecified; F41.9 Anxiety disorder, unspecified; H40.9 Unspecified glaucoma; E04.2 Nontoxic multinodular goiter
CPT/HCPCS: 36415; 80048; 80053; 80307; 87637; 96361; 96365; 96372; 97110; 97162; 99285; 70450; 72110; 80320; 81003; 81015; 82140; 83735; 84443; 85025; 99223; 99232; 99239; J0696; J1644; J3490

== ENCOUNTER 2023-01-19 14:14 | Emergency (ER) | payer MEDICARE, MEDICAID, SELFPAY ==
[2023-01-19] VITALS (17 sets, daily range): BP systolic 147–152; BP diastolic 70–94; PULSE 65–81; RESP 8–20; TEMP 35.6–36.9; O2SAT 98–99
--- NOTE | 2023-01-19 14:15 | RT.EKG_ITS ---
APPROVED REPORT Exam: Resting ECG Reason for Exam: syncope Patient Location: E HR:68 bpm ECG Measurements Heart Rate 68 AXIS MT [id number] P [id number] QRSd 96 QRS 31 QT 438 T 42 QTc 466 Conclusion Atrial fibrillation...V-rate 67- 69, irreg A-activity Physician: not Afib. No stemi, artifact present
--- NOTE | 2023-01-19 14:15 | DI.CT_ITS ---
Exam(s) CT CHEST/ABD/PEL WO EXAM: CT CHEST/ABD/PEL WO CLINICAL HISTORY: fall, down for 12+hrs, SOBright hip pain, confused. TECHNIQUE: Imaging Protocol: Axial computed tomography images with coronal and sagittal reformatted images were created and reviewed CONTRAST MATERIAL: Noncontrast Oral: no COMPARISON: CT CT CHEST/ABD/PEL W from 12/10/2020 CR XR LUMBAR SPINE COMPLETE from 12/30/2022 FINDINGS: CHEST: Exam is somewhat limited by artifact secondary to patient arm positioning. Thyroid nodules again noted. No gross interval change. Tracheobronchial tree: Patent where visualized. Pulmonary parenchyma: No consolidation or dominant measurable mass. Dependent changes. Pleura: No effusion or pneumothorax. Lymph nodes: Within normal limits. Aorta: Thoracic portion non-dilated. Atherosclerotic calcifications. Heart: Mildly enlarged. Coronary artery calcifications. Bones: Degenerative changes. Old right rib fractures.. No lytic or blastic lesions.Stable T8 compre ssion fracture. No acute fractures identified. ABDOMEN and PELVIS: Liver: Normal density. No measurable mass. Gallbladder and biliary tract: No evidence of stones or wall thickening. No biliary dilatation. Pancreas: Normal density, no abnormal calcifications or inflammatory process. Spleen: Normal. Kidneys: Normal size, contour and axis. No radiodense stones or obstructive uropathy. No suspicious m asses seen. Adrenal glands: No masses seen. Aorta: Abdominal portion non-dilated. Mild atherosclerotic changes. Lymph nodes: Within normal limits. Soft tissues: Unremarkable. Bladder: Unremarkable. Bowel: No obstruction or bowel wall thickening. Large quantity of stool throughout the colon. Peritoneal cavity: No ascites. No focal collection or mesenteric inflammatory response. Bones: Severe degenerative changes and scoliosis. No acute fracture. Reproductive organs: Within normal limits. IMPRESSION: No acute abnormality in the chest, abdomen or pelvis.. RADIATION DOSE DELIVERED: Total DLP DATA REPOSITORY: All CT scans at this facility are submitted to the National Radiology Data Registry (NRDR) Dose Index Registry (DIR) with the [employer] ([employer]). RADIATION OPTIMIZATION: All CT scans at this facility use at least one of these dose optimization te chniques: automated exposure control; mA and/or kV adjustment per patient size (includes targeted exa ms where dose is matched to clinical indication); or iterative reconstruction.
--- NOTE | 2023-01-19 14:30 | DI.CT_ITS ---
Exam(s) CT HEAD CERV SPINE FACIAL WO EXAM: CT HEAD CERV SPINE FACIAL WO CLINICAL HISTORY: fall, hit face, down for 12+ hrs. TECHNIQUE: Imaging Protocol: Axial computed tomography images with coronal and sagittal reformatted images were created and reviewed COMPARISON: CT CT HEAD WO from 12/30/2022 FINDINGS: CT Head: Ventricles and Extra axial spaces: Normal in size and morphology for the patient's age. Hemorrhage: None. Cerebral parenchyma: No evidence of infarct or mass. Midline shift: None. Brainstem/Cerebellum: Normal. Calvarium: Normal. Visualized Paranasal sinuses/Mastoids: Clear. Soft Tissues: Unremarkable. CT Face: Facial Bones: No fracture is noted in facial bones. Sinuses and Mastoids: Unremarkable. Globes, extraocular muscles, optic nerves and retrobulbar fat: Normal. Upper aerodigestive tract: Normal. Mandible and bilateral temporomandibular joints: Normal. Soft tissues: Normal. CT Cervical Spine: Bones: No acute fracture or subluxation. Degenerative disc changes throughout. Facet degenerative changes. Straightening of the normal cervical lordosis consistent with degenerative changes. Soft Tissues: Unremarkable. Lung Apices: Clear. IMPRESSION: 1. No acute intracranial process. 2. No acute fracture or subluxation in the cervical spine. Advanced degenerative changes. 3. No acute facial fracture. RADIATION DOSE DELIVERED: Total DLP DATA REPOSITORY: All CT scans at this facility are submitted to the National Radiology Data Registry (NRDR) Dose Index Registry (DIR) with the [employer] ([employer]). RADIATION OPTIMIZATION: All CT scans at this facility use at least one of these dose optimization te chniques: automated exposure control; mA and/or kV adjustment per patient size (includes targeted exa ms where dose is matched to clinical indication); or iterative reconstruction.
--- NOTE | 2023-01-19 14:32 | ED.GENADUL_ITS ---
Discharge Plan Discharge Details Chief Complaint: AMS/LOC Clinical Impression: Weakness, Drug use, Fall Primary Care Provider: Rosario Reed ED Provider: Zana Paredes Home Meds and New Rx's Prescriptions: No Action diltiazem HCl [Cardizem LA] 360 mg tablet extended release 24 hr 360 mg PO DAILY celecoxib [Celebrex] 100 mg capsule 100 mg PO BID cholecalciferol (vitamin D3) 25 mcg (1,000 unit) capsule 25 mcg PO DAILY polyethylene glycol 3350 [Miralax] 17 gram powder in packet 17 g PO DAILY PRN albuterol sulfate [ProAir HFA] 90 mcg/actuation HFA aerosol inhaler 2 puff inhalation Q6H PRN memantine 5 mg tablet 5 mg PO BID losartan 100 mg tablet 100 mg PO DAILY trazodone 50 mg tablet 50 mg PO QHS PRN sennosides [Natural Senna Laxative] 8.6 mg tablet 17.2 mg PO DAILY bupropion HCl [Wellbutrin SR] 150 mg Tablet Sustained-Release 12 Hr 150 mg PO BID magnesium L-lactate 84 mg Tablet Extended Release 84 mg PO HS brimonidine-timolol [Combigan] 0.2-0.5 % Drops 1 drp OPHTHALMIC (EYE) BID fluticasone propionate 50 mcg/actuation spray,suspension 1 spray INTRANASAL BID PRN gabapentin 100 mg capsule 100 mg PO TID carbidopa-levodopa 25-100 mg tablet 2 tab PO TID pantoprazole [Protonix] 40 mg tablet,delayed release (DR/EC) 40 mg PO DAILY Qty: 90 4RF amantadine HCl 100 mg capsule 100 mg PO DAILY furosemide 20 mg tablet 20 mg PO DAILY Patient Comments: Take 1 tablet by mouth once a day Medical Decision Making 77-year-old female with a past medical history of Parkinson's disease, Lewy body dementia, overactive bladder/urge incontinence, cannabinoid use for pain, hypertension, fibromyalgia, esophageal stricture and dysphagia, d isassociative identity disorder, who lives at home with her with a knee amputation and cares for him, presents today for evaluation by EMS. Per EMS and patient the patient was found on her bedroom floor this morning. Patient states that she had fallen last night and was not able to get up. She did hit her face and head during the fall. She is not on blood thinners. When EMS arrived she was acting more confused than normal. Blood sugar was normal. She was brought to the ER for further assessment. Patient upon arrival states that she recalls the fall, she knows what happened. She did hit her head and face on the nightstand on the way down. She was down all night long. She admits to some chronic back pain but this is unchanged. She also admits to right-sided hip pain which is new. She denies any chest pain or shortness of breath. She denies any fever. She denies any other complaints at this time. Of note she was admitted for falls UTI altered mental status on 12/30/22, and then discharged about 2 weeks ago on 01/01. Exam demonstrates small amount of abrasions and bruising over the face, but no focal facial tenderness. No cervical thoracic or lumbar spine tenderness. Mild right hip pain which seems to be acute. No other signs of significant trauma otherwise. Mucous membranes are extremely dry. Concern for potential UTI, intracranial injury after fall, dehydration or rhabdomyolysis. Will evaluate for these, gently rehydrate at this time at 125 cc/h of normal saline as she does not appear to be in overt fluid overload. Oxygenation is excellent at this time on room air. We will monitor closely and reassess. Bedside echo demonstrates an ejection fraction which appears to be around 40-50% currently. Questionable scattered mild B-lines intermittently noted in the lung jalloh. 6:33 PM Laboratory work-up has returned, patient demonstrates no white count or bandemia. Hemoglobin stable. VBG normal. Electrolytes normal. Creatinine 1.3 which is baseline. CK is only 212. No evidence of rhabdomyolysis. Troponin normal. proBNP only 370. We will continue to gently rehydrate. Thyroid function normal. Urinalysis shows no evidence of infection. Mild ketones. However urine drug screen is positive for amphetamines and THC. Concerned that the patient is smoking meth amphetamines at home, which apparently her significant other does. COVID flu and RSV negative. Case management did come by and evaluate the patient, patient was not willing to wake up when she was in there. I did go back in and wake up the patient later, and she responded well to this. She would answer all questions. However we did try to get her up to ambulate her and she was unable/unwilling. The patient's friends who are at bedside are very concerned for her safety going home. PT and OT are no longer here for evaluation. Patient is concerned that she is too weak to go home. We will keep the patient in the ER for the meantime, continue fluids slowly, and plan for PT OT eval in the morning. CT scan of the head neck face chest abdomen pelvis are all negative for acute process per radiology. 9:30 PM I did go and reassess the patient this evening. She states that she is feeling somewhat better currently. I do worry there may be a psychosocial component that is impacting situation. We did get the patient up with a walker and she ambulated with that with only mild difficulty. Patient still does not feel safe going home though at this time with her who is at home and an amputee, and her not feeling comfortable going home with RCT or with friends. She is requesting additional help and resources at home. We will continue with the prescribed plan. Patient will be signed out to my colleague Dr. Araseli Cabrales. We will give her nighttime medications. FINDINGS: CT Head: Ventricles and Extra axial spaces: Normal in size and morphology for the patient's age. Hemorrhage: None. Cerebral parenchyma: No evidence of infarct or mass. Midline shift: None. Brainstem/Cerebellum: Normal. Calvarium: Normal. Visualized Paranasal sinuses/Mastoids: Clear. Soft Tissues: Unremarkable. CT Face: Facial Bones: No fracture is noted in facial bones. Sinuses and Mastoids: Unremarkable. Globes, extraocular muscles, optic nerves and retrobulbar fat: Normal. Upper aerodigestive tract: Normal. Mandible and bilateral temporomandibular joints: Normal. Soft tissues: Normal. CT Cervical Spine: Bones: No acute fracture or subluxation. Degenerative disc changes throughout. Facet degenerative changes. Straightening of the normal cervical lordosis consistent with degenerative changes. Soft Tissues: Unremarkable. Lung Apices: Clear. IMPRESSION: 1. No acute intracranial process. 2. No acute fracture or subluxation in the cervical spine. Advanced degenerative changes. 3. No acute facial fracture. FINDINGS: CHEST: Exam is somewhat limited by artifact secondary to patient arm positioning. Thyroid nodules again noted. No gross interval change. Tracheobronchial tree: Patent where visualized. Pulmonary parenchyma: No consolidation or dominant measurable mass. Dependent changes. Pleura: No effusion or pneumothorax. Lymph nodes: Within normal limits. Aorta: Thoracic portion non-dilated. Atherosclerotic calcifications. Heart: Mildly enlarged. Coronary artery calcifications. Bones: Degenerative changes. Old right rib fractures.. No lytic or blastic lesions.Stable T8 compression fracture. No acute fractures identified. ABDOMEN and PELVIS: Liver: Normal density. No measurable mass. Gallbladder and biliary tract: No evidence of stones or wall thickening. No biliary dilatation. Pancreas: Normal density, no abnormal calcifications or inflammatory process. Spleen: Normal. Kidneys: Normal size, contour and axis. No radiodense stones or obstructive uropathy. No suspicious masses seen. Adrenal glands: No masses seen. Aorta: Abdominal portion non-dilated. Mild atherosclerotic changes. Lymph nodes: Within normal limits. Soft tissues: Unremarkable. Bladder: Unremarkable. Bowel: No obstruction or bowel wall thickening. Large quantity of stool throughout the colon. Peritoneal cavity: No ascites. No focal collection or mesenteric inflammatory response. Bones: Severe degenerative changes and scoliosis. No acute fracture. Reproductive organs: Within normal limits. IMPRESSION: No acute abnormality in the chest, abdomen or pelvis.. HPI General Date/Time Provider Initiated Documentation: 01/19/23 14:28 . HPI Narrative: 77-year-old female with a past medical history of Parkinson's disease, Lewy body dementia, overactive bladder/urge incontinence, cannabinoid use for pain, hypertension, fibromyalgia, esophageal stricture and dysphagia, disassociative identity disorder, who lives at home with her with a knee amputation and cares for him, presents today for evaluation by EMS. Per EMS and patient the patient was found on her bedroom floor this morning. Patient states that she had fallen last night and was not able to get up. She did hit her face and head during the fall. She is not on blood thinners. When EMS arrived she was acting more confused than normal. Blood sugar was normal. She was brought to the ER for further assessment. Patient upon arrival states that she recalls the fall, she knows what happened. She did hit her head and face on the nightstand on the way down. She was down all night long. She admits to some chronic back pain but this is unchanged. She also admits to right-sided hip pain which is new. She denies any chest pain or shortness of breath. She denies any fever. She denies any other complaints at this time. Of note she was admitted for falls UTI altered mental status on 12/30/22, and then discharged about 2 weeks ago on 01/01. Related Data Home Medications Medication Instructions Recorded Confirmed brimonidine 0.2 %-timolol 0.5 % 1 drp ophthalmic (eye) BID 06/18/18 01/19/23 eye drops (Combigan) bupropion HCl 150 mg tablet,12 hr 150 mg PO BID 06/18/18 01/19/23 sustained-release (Wellbutrin SR) magnesium L-lactate 84 mg 84 mg PO HS 06/18/18 01/19/23 tablet,extended release diltiazem HCl 360 mg 360 mg PO DAILY 09/18/18 01/19/23 tablet,extended release 24 hr (Cardizem LA) polyethylene glycol 3350 17 gram 17 g PO DAILY PRN 10/05/18 01/19/23 oral powder packet (Miralax) albuterol sulfate 90 mcg/actuation 2 puff inhalation Q6H PRN 04/23/20 01/19/23 aerosol inhaler (ProAir HFA) pantoprazole 40 mg tablet,delayed 40 mg PO DAILY #90 tabs 05/08/20 01/19/23 release (Protonix) fluticasone propionate 50 1 spray intranasal BID PRN 11/10/20 01/19/23 mcg/actuation nasal spray,suspension losartan 100 mg tablet 100 mg PO DAILY 12/30/21 01/19/23 memantine 5 mg tablet 5 mg PO BID 12/30/21 01/19/23 trazodone 50 mg tablet 50 mg PO QHS PRN 12/30/21 01/19/23 carbidopa 25 mg-levodopa 100 mg 2 tab PO TID 04/19/22 01/19/23 tablet celecoxib 100 mg capsule (Celebrex) 100 mg PO BID 04/19/22 01/19/23 cholecalciferol (vitamin D3) 25 25 mcg PO DAILY 04/19/22 01/19/23 mcg (1,000 unit) capsule gabapentin 100 mg capsule 100 mg PO TID 04/19/22 01/19/23 sennosides 8.6 mg tablet (Natural 17.2 mg PO DAILY 04/19/22 01/19/23 Senna Laxative) amantadine HCl 100 mg capsule 100 mg PO DAILY 12/30/22 01/19/23 furosemide 20 mg tablet 20 mg PO DAILY 12/30/22 01/19/23 Previous Rx's Medication Instructions Recorded pantoprazole 40 mg tablet,delayed 40 mg PO DAILY #90 tabs 05/08/20 release (Protonix) Allergies Allergy/AdvReac Type Severity Reaction Status Date / Time atorvastatin Allergy Intermediate Verified 12/30/22 11:05 lisinopril AdvReac Intermediate cough Verified 12/30/22 11:05 simvastatin AdvReac Intermediate overall Verified 12/30/22 11:05 body ache Sulfa (Sulfonamide AdvReac Intermediate my Verified 12/30/22 11:05 Antibiotics) symptoms got worse General Stated Complaint: AMS/LOC GIANNA: 3 Review of Systems All systems reviewed & are unremarkable except as noted in HPI and below PFSH All Active Problems (Updated 01/19/23 @ 22:16 by Zana Paredes DO) Fall (Acute) Drug use (Acute) Weakness (Acute) Hallucinations (Acute) Multiple falls (Acute) Generalized weakness (Acute) Acute kidney injury (Acute) Myalgia (Acute) Trochanteric bursitis of right hip (Acute) Sacroiliac joint dysfunction of right side (Acute) Screening for colon cancer (Acute) OAB (overactive bladder) (Acute) Spondylosis of lumbar region without myelopathy or radiculopathy (Chronic) Myalgia and myositis (Chronic) Unspecified disorder of ear, bilateral (Acute) Esophagitis (Acute) Former smoker (Acute) Preop testing (Acute) Cannabis use, uncomplicated (Acute) Hiatal hernia (Chronic) Bile reflux gastritis (Acute) moderate Urge incontinence (Acute) Parkinsons (Chronic) Fibromyalgia (Acute) Lewy body dementia (Chronic) Lactose intolerance (Chronic) Esophageal stricture (Chronic) Dissociative identity disorder (Chronic) Dysphagia (Acute) Medical History Basal cell carcinoma Lipoma Cataracts, bilateral Menopause Multiple thyroid nodules Cellulitis SUGGS (dyspnea on exertion) Excessive sweating Candidiasis, vagina Weight gain DJD (degenerative joint disease), cervical Actinic keratosis Chronic back pain PTSD (post-traumatic stress disorder) Hypercholesterolemia History of substance abuse Adenomatous colon polyp Hypomagnesemia Essential tremor Depression Anxiety Urinary incontinence Glaucoma Surgical History Hx of colonoscopy History of esophagogastroduodenoscopy (EGD) (~05/08/20) History of esophagogastroduodenoscopy (EGD) 11/09/18 History of surgery on arm History of back surgery EGD - [facility] (02/10/16) DR. HAMLET THOMAS, with dilatation EGD - [facility] (01/16/15) DR. HAMLET THOMAS, with dilatation Social History Smoking/Tobacco Use Status: Former Tobacco Use Quit Date: 03/20/75 Smoking risk assessment performed?: Yes Alcohol Intake: never Drug use: Daily Substance use type: marijuana Details: smoke and edibles Housing: house Do you feel safe at home: Yes Do you feel safe in your relationship?: Yes Exam Narrative Exam Narrative: 1.Const: Well-nourished, Well-developed, appearing stated age 2.Eyes: PERRL, no conjunctival injection, and symmetrical lids. 3.ENT: Atraumatic external nose and ears. Notably dry MM. Neck: Symmetric, trachea midline, No thyromegaly. Mild abrasions and bruises on the face. There is no evidence of raccoon eyes, sung sign, CSF rhinorrhea, mastoid tenderness, cranial crepitus, hemotympanum, exophthalmos, or hyphema. Patient demonstrates intact dentition with no signs of tooth avulsion or fracture, no signs of jaw deformity, no evidence of a LeFort's fracture, with an intact palate, nose and orbital region. There is no evidence of a nasal septal hematoma. No proptosis. Jaw closes symmetrically. Airway is clear. 4.CVS: +S1/S2, No murmurs or gallops. Peripheral pulses 2+ and equal in all extremities. Brisk capillary refill in all extremities. 5.RESP: Unlabored respiratory effort. Questionable minimal scattered crackles versus rhonchi. No wheezes. 6.GI: Soft, Nontender/Nondistended, No hepatosplenomegaly. No guarding or rebound. 7.MSK: Normocephalic Extremities w/o deformity. No cyanosis or clubbing, patient is able to move all extremities, but does feel generally weak. No midline cervical thoracic or lumbar spine tenderness. Mild right paraspinal tenderness around the lumbar area, however she states that this is chronic. Patient does have mild pain over the right greater trochanter at the hip. Mild pain with movement of the leg. Notable weakness bilaterally. Sensation intact. +1 pitting edema bilaterally. 8.Skin: Warm, Dry. No rashes or lesions. 9.Neuro: mysql developer II-XII grossly intact. Sensation grossly intact, no focal neurologic deficits. 10.Psych: (AAO) x2. Appropriate mood and affect, seems to be very intellectually reasonable at this time. Course Vital Signs Vital signs: Vital Signs Temperature 35.6 C L 01/19/23 14:17 Pulse 71 01/19/23 14:17 Respiratory Rate 20 01/19/23 14:17 Pulse Oximetry 98 01/19/23 14:17 Temperature 36.9 C 01/19/23 14:27 Pulse 80 01/19/23 14:27 Respiratory Rate 16 01/19/23 14:27 Respiratory Effort Short of Breath 01/19/23 14:24 Blood Pressure 148/72 H 01/19/23 14:27 Pulse Oximetry 98 01/19/23 14:27 Oxygen Flow Rate 2 01/19/23 14:27 POCUS Exam (ED) Limited Cardiac Exam DATE OF EXAM: 01/19/23 TIME OF EXAM: 14:40 PROVIDER THAT PERFORMED THE STUDY: Zana Paredes IS THIS A REPEAT EXAM DURING THIS ENCOUNTER: no REASON FOR EXAM: Congestive heart failure VISUALIZED STRUCTURES: Left atrium, Left ventricle, Right ventricle and Interventricular septum VIEW OBTAINED: Parasternal long-axis PERTINENT FINDINGS/IMPRESSION: No apparent abnormalities Exam complete Limited Thoracic Lung Exam DATE OF EXAM: 01/19/23 TIME OF EXAM: 14:40 PROVIDER THAT PERFORMED THE STUDY: Zana Paredes IS THIS A REPEAT EXAM DURING THIS ENCOUNTER: No REASON FOR EXAM: Shortness ofBreath VISUALIZED STRUCTURES: right lateral, left lateral, right posterior and left posterior PERTINENT FINDINGS/IMPRESSION: B-lines/left side and B-lines/right side DIFFERENTIAL DIAGNOSES: Notably minimal B-lines scattered. Exam complete
[2023-01-19] MEDS: Normal Saline 1,000 ML 150 ML IV (14:39)
[2023-01-19 14:44] LABS: BE (Venous) -1 mmol/L (-2-3); HCO3 (Venous) 26 mmol/L (23-28); O2 Sat (Venous) 77 %; TCO2 (Venous) 24 mmol/L (24-29); pCO2 (Venous) 51 mmHg (41-51); pH (Venous) 7.31 (7.31-7.41); pO2 (Venous) 47 mmHg
[2023-01-19 14:45] LABS: Abs Immature Grans 0.04 10^3/uL (0.0-0.06); Absolute Basophil Count 0.07 10^3/uL (0.0-0.2); Absolute Eosinophil Count 0.02 10^3/uL (0.0-0.7); Absolute Lymphocyte Count 1.03 10^3/uL (1.2-3.4); Absolute Monocyte Count 0.82 10^3/uL (0.1-0.8); Absolute Neutrophil Count 7.42 10^3/uL (1.2-6.7); Basophils % 0.7; Eosinophils % 0.2; HCT 39.2 % (36.0-46.0); HGB 12.3 g/dL (11.2-15.7); Immature Grans % 0.4; MCH 27.6 pg (27.0-33.0); MCHC 31.4 % (32.0-36.0); MCV 88 fL (80-95); Monocytes % 8.7; Platelet Count 307 10^3/uL (130-400); RBC 4.46 10^6/uL (3.93-5.22); RDW 13.7 % (11.7-14.6); RDW-SD 43.8 fL
[2023-01-19 15:02] LABS: Bilirubin Negative (Negative); Blood Negative (Negative); Clarity Clear (Clear); Glucose Negative (Negative); Ketones Trace mg/dL (Negative); Leukocyte Esterase Negative (Negative); Nitrite Negative (Negative); Specific Gravity >= 1.030 (1.005-1.025); Urobilinogen 0.2 mg/dL (Up to 0.2); pH 5.5 (5-8)
[2023-01-19 15:12] LABS: ALT 16 U/L (14-59); AST 14 U/L (15-37); Albumin 3.9 g/dL (3.4-5.0); Alkaline Phosphatase 231 U/L (46-116); Anion Gap 10.4 mmol/L (3-11); BUN 31 mg/dL (7-18); Bilirubin, Total 0.4 mg/dL (0.2-1.0); CO2 25.6 mmol/L (21.0-32.0); CREATININE 1.3 mg/dL (0.55-1.02); Calcium 9.9 mg/dL (8.5-10.1); Chloride 103 mmol/L (98-107); Creatine Kinase 212 U/L (26-192); Estimated GFR 42.62 (mL/min/1.73m2); Glucose 145 mg/dL (74-106); NT-proBNP 370 pg/mL (<300); Potassium 3.6 mmol/L (3.5-5.1); Sodium 139 mmol/L (136-145); TSH (W/Ref FT4) 1.06 uIU/mL (0.36-3.74); Total Protein 7.2 g/dL (6.4-8.2); Troponin I < 50 ng/L (<or=60)
[2023-01-19 15:27] LABS: COVID-19 PCR Negative (Negative); Influenza A PCR Negative (Negative); Influenza B PCR Negative (Negative); RSV PCR Negative (Negative)
[2023-01-19 15:30] LABS: *AMPHETAMINES SCREEN URINE Positive (Negative); *BARBITURATES SCREEN URINE Negative (Negative); *BENZODIAZEPINES SCREEN URINE Negative (Negative); Cannabinoids THC Positive (Negative); Cocaine Screen,Urine Negative (Negative); METHADONE URINE SCREEN Negative (Negative); OPIATES URINE SCREEN Negative (Negative)
[2023-01-19 15:31] LABS: Tricyclic Antidepressants Positive (Negative)
[2023-01-19 15:32] LABS: Source Nasopharynx
[2023-01-19 15:39] LABS: PTT Activated 27.2 sec (23.6-32.8)
[2023-01-19] MEDS: Furosemide 20 MG/2 ML VIAL IVP (21:43)
[2023-01-20] MEDS: Carbidopa 25/Levodopa 100 TAB PO (08:04)
[2023-01-20] MEDS: Losartan 50 MG TAB 100 MG PO (08:05)
[2023-01-20] MEDS: Memantine 5 MG TAB PO (08:09)
[2023-01-20] MEDS: Pantoprazole 40 MG TABCR PO (08:09)
[2023-01-20] MEDS: Furosemide 20 MG TAB PO (08:10)
[2023-01-20] MEDS: dilTIAZem CD 180 MG CAPCR 360 MG PO (08:11)
[2023-01-20 08:17] VITALS: BP 195/90; PULSE 85; RESP 18; O2SAT 92
--- NOTE | 2023-01-20 08:25 | NUR.NOTE ---
NS 1000 empty, finished by wet end tester and not document CLB
--- NOTE | 2023-01-20 09:07 | ED.PROG_ITS ---
Date of service: 01/20/23 Time of Service: 09:07 Medical Decision Making Patient signed out to me pending case management evaluation. I spoke with the block and case maker this morning who has evaluated the patient previously and reports that she has been provided with multiple resources including the [place] on aging and Meals on Wheels. Patient was observed to be ambulatory without difficulty in the emergency department with the assistance of a walker. She states that she has a walker at home. She reports that she is ready to go home at this time. Will arrange transport patient home. Sign Out Sign Out Data: Sign Out Comment: Fall at home, weakness mild dehydration. CT scan of chest abdomen pelvis head and neck negative for acute process. Laboratory work-up stable. Initially patient refused to get up and walk or ambulate at all. Just prior to signout the patient did wake up and was willing to get up and walk with a walker. Patient does not feel safe or comfortable going home at this time. We will wait for formal PT OT eval in the morning. Recommend repeat assessment by case management for potential additional assistance at home on top of what she already has. Last updated by Zana Paredes DO at 01/19/23 22:18 Sign Out Comment: Poor social support at home, falls and drug use likely, awaiting PT/OT eval for safe dispo Home Last updated by Chuy Resendiz MD at 01/20/23 07:18 Discharge Plan Disposition Patient Disposition: Home Condition: Stable Discharge Details Clinical Impression: Weakness, Drug use, Fall Primary Care Provider: Rosario Reed ED Provider: Amanda Benson Home Meds and New Rx's Prescriptions: No Action diltiazem HCl [Cardizem LA] 360 mg tablet extended release 24 hr 360 mg PO DAILY celecoxib [Celebrex] 100 mg capsule 100 mg PO BID cholecalciferol (vitamin D3) 25 mcg (1,000 unit) capsule 25 mcg PO DAILY polyethylene glycol 3350 [Miralax] 17 gram powder in packet 17 g PO DAILY PRN albuterol sulfate [ProAir HFA] 90 mcg/actuation HFA aerosol inhaler 2 puff inhalation Q6H PRN memantine 5 mg tablet 5 mg PO BID losartan 100 mg tablet 100 mg PO DAILY trazodone 50 mg tablet 50 mg PO QHS PRN sennosides [Natural Senna Laxative] 8.6 mg tablet 17.2 mg PO DAILY bupropion HCl [Wellbutrin SR] 150 mg Tablet Sustained-Release 12 Hr 150 mg PO BID magnesium L-lactate 84 mg Tablet Extended Release 84 mg PO HS brimonidine-timolol [Combigan] 0.2-0.5 % Drops 1 drp OPHTHALMIC (EYE) BID fluticasone propionate 50 mcg/actuation spray,suspension 1 spray INTRANASAL BID PRN gabapentin 100 mg capsule 100 mg PO TID carbidopa-levodopa 25-100 mg tablet 2 tab PO TID pantoprazole [Protonix] 40 mg tablet,delayed release (DR/EC) 40 mg PO DAILY Qty: 90 4RF amantadine HCl 100 mg capsule 100 mg PO DAILY furosemide 20 mg tablet 20 mg PO DAILY Patient Comments: Take 1 tablet by mouth once a day Discharge Instructions Additional Instructions: please use follow up resources that were provided to you. use your walker to ambulate
[2023-01-20 09:24] VITALS: PULSE 89; RESP 18; TEMP 36.8; O2SAT 91
== END 2023-01-20 09:54 | disposition home or self-care (01) ==
PROVIDERS: Student in an Organized Health Care Education/Training Program; Emergency Provider Emergency Medicine; PCP Family Medicine
DX: S00.81XA Abrasion of other part of head, initial encounter (principal); R53.1 Weakness; E86.0 Dehydration; I48.91 Unspecified atrial fibrillation; I10 Essential (primary) hypertension; G20.A1 Parkinson's disease without dyskinesia, without mention of fluctuations; G31.83 Neurocognitive disorder with Lewy bodies; Z79.01 Long term (current) use of anticoagulants; W01.190A Fall on same level from slipping, tripping and stumbling with subsequent striking against furniture, initial encounter; Y93.89 Activity, other specified; Y92.013 Bedroom of single-family (private) house as the place of occurrence of the external cause
CPT/HCPCS: 00123; 36415; 71250; 76604; 80053; 80307; 82550; 82805; 87637; 93005; 93308; 96361; 96374; 99284; 70450; 70486; 72125; 74176; 81003; 83880; 84443; 84484; 85025; 85610; 85730; 93010; J1941

== ENCOUNTER 2023-02-24 10:43 | Emergency (ER) | payer MEDICARE, MEDICAID, SELFPAY ==
--- NOTE | 2023-02-24 10:45 | RT.EKG_ITS ---
APPROVED REPORT Exam: Resting ECG Reason for Exam: Hypertension Patient Location: E HR:72 bpm ECG Measurements Heart Rate 72 AXIS GA 218 P 50 QRSd 96 QRS 25 QT 398 T 59 QTc 436 Conclusion Sinus rhythm...normal P axis, V-rate 60- 99 Borderline prolonged GA interval...GA >212, V-rate 50- 90
[2023-02-24 10:47] VITALS: BP 150/68; PULSE 76; RESP 18; TEMP 36.8; O2SAT 96
[2023-02-24 10:57] VITALS: RESP 16
--- OUTSIDE RECORDS SUMMARY | 2023-02-24 11:16 | XMS_ITS | Continuity of Care Document ---
Author Name Unknown Organization [facility] Ambulatory Clinics Address [address] [place] [address] Care Team Providers Care Tuber Machine Operator Helper Name Role Phone SURINDER CARNEY Primary Care Physician [phone] Encounter [facility] NBR [id number] Date(s): 02/02/23 - 02/02/23 [facility] Ambulatory Clinics [address] [place], [place] [address] Encounter Diagnosis Lumbar radicular pain(Discharge Diagnosis) - 02/02/23 Lumbar foraminal stenosis(Discharge Diagnosis) - 02/02/23 Spondylosis of lumbar spine(Discharge Diagnosis) - 02/02/23 Discharge Disposition: Home or Self Care Attending Physician: Chanda Tran DO Allergies, Adverse Reactions, Alerts Substance Reaction Severity Status sulfa drugs Drug Mild Active Assessment and Plan Future Scheduled Tests Radiology* MRI Spine Lumbar w/o Contrast 02/02/23 Medications AAA - Misc Prescription 20 unknown unit, 0 Refill(s), 0 Refill(s) Start Date: 02/02/23 Status: Ordered amantadine 100 mg oral capsule 56 cap, 0 Refill(s), 0 Refill(s) Start Date: 02/02/23 Status: Ordered brimonidine 0.2% ophthalmic solution 10 mL, 0 Refill(s), 0 Refill(s) Start Date: 02/02/23 Status: Ordered BuPROPion (Eqv-Wellbutrin SR) 150 mg/12 hours oral tablet, extended release 56 tab, 0 Refill(s), 0 Refill(s) Start Date: 02/02/23 Status: Ordered carbidopa-levodopa 25 mg-100 mg oral tablet 140 tab, 0 Refill(s), 0 Refill(s) Start Date: 02/02/23 Status: Ordered carbidopa-levodopa 25 mg-100 mg oral tablet, extended release 28 tab, 0 Refill(s), 0 Refill(s) Start Date: 02/02/23 Status: Ordered celecoxib 100 mg oral capsule 60 cap, 0 Refill(s), 0 Refill(s) Start Date: 02/02/23 Status: Ordered cyclobenzaprine 10 mg oral tablet 60 tab, 0 Refill(s), 0 Refill(s) Start Date: 02/02/23 Status: Ordered DilTIAZem (Eqv-Cardizem CD) 360 mg/24 hours oral capsule, extended release 28 cap, 0 Refill(s), 0 Refill(s) Start Date: 02/02/23 Status: Ordered donepezil 5 mg oral tablet 28 tab, 0 Refill(s), 0 Refill(s) Start Date: 02/02/23 Status: Ordered furosemide 20 mg oral tablet 28 tab, 0 Refill(s), 0 Refill(s) Start Date: 02/02/23 Status: Ordered gabapentin 300 mg oral capsule 84 cap, 0 Refill(s), 0 Refill(s) Start Date: 02/02/23 Status: Ordered hydrOXYzine hydrochloride 10 mg oral tablet 90 tab, 0 Refill(s), 0 Refill(s) Start Date: 02/02/23 Status: Ordered losartan 100 mg oral tablet 28 tab, 0 Refill(s), 0 Refill(s) Start Date: 02/02/23 Status: Ordered Mag-Tab SR 84 mg oral tablet, extended release 28 unknown unit, 0 Refill(s), 0 Refill(s) Start Date: 02/02/23 Status: Ordered memantine 5 mg oral tablet 56 tab, 0 Refill(s), 0 Refill(s) Start Date: 02/02/23 Status: Ordered mirtazapine 30 mg oral tablet 28 tab, 0 Refill(s), 0 Refill(s) Start Date: 02/02/23 Status: Ordered pantoprazole 40 mg oral delayed release tablet 28 tab, 0 Refill(s), 0 Refill(s) Start Date: 02/02/23 Status: Ordered polyethylene glycol 3350 oral powder for reconstitution 30 unknown unit, 0 Refill(s), 0 Refill(s) Start Date: 02/02/23 Status: Ordered Senna-Time 8.6 mg oral tablet 56 unknown unit, 0 Refill(s), 0 Refill(s) Start Date: 02/02/23 Status: Ordered timolol maleate 0.5% ophthalmic solution 15 mL, 0 Refill(s), 0 Refill(s) Start Date: 02/02/23 Status: Ordered Vitamin D3 1000 intl units oral tablet 28 unknown unit, 0 Refill(s), 0 Refill(s) Start Date: 02/02/23 Status: Ordered Vital Signs Most recent to oldest [Reference Range]: 1 Temperature Tympanic [36.6-38.1 Deg C] 3 6.8 Deg C (02/02/23 10:55 AM) Peripheral Pulse Rate [60-100 bpm] 65 bp m (02/02/23 10:55 AM) Respiratory Rate [12-24 br/min] 15 br/mi n (02/02/23 10:55 AM) Blood Pressure [90-140/60-90 mmHg] 154/7 7mmHg *HI* (02/02/23 10:55 AM) Mean Arterial Pressure, Cuff [70-110 mmH g] 103 mmHg (02/02/23 10:55 AM) Weight 64 kg (02/02/23 10:55 AM) Weight Measured (lbs) 141.096 lb (02/02/23 10:55 AM) Weight Dosing 64.000 kg (02/02/23 10:55 AM) Patient Care team information Care Team Personnel Name: SURINDER CARNEY Position: No Access Member Role: Primary Care Physician Address: Address: [facility] [address] [place] [address]- [place]
--- OUTSIDE RECORDS SUMMARY | 2023-02-24 11:16 | XMS_ITS | Continuity of Care Document ---
Author Name Unknown Organization [facility] Address [address] [place] [address] Care Team Providers Care Hardware Trainer Name Role Phone SURINDER CARNEY Primary Care Physician Encounter [facility] NBR [id number] Date(s): 02/14/23 - 02/14/23 [facility] [address] [place] [address]- [place] Discharge Disposition: Home or Self Care Attending Physician: Chanda Tran DO Admitting Physician: Chanda Tran DO Referring Physician: Chanda Tran DO Allergies, Adverse Reactions, Alerts Substance Reaction Severity Status sulfa drugs Drug Mild Active Assessment and Plan Future Appointments Medications [facility] Prescription 20 unknown unit, 0 Refill(s), 0 [...] 0 Refill(s) Start Date: 02/02/23 Status: Ordered Problem List Condition Confirmation Course Effective Dates Status Health St atus Informant Hypertension Confirmed Active Parkinson's disease Confirmed Active Procedures Procedure Date Related Diagnosis Body Site Status Laminectomy and discectomy 1 Completed 1L3-4 in 2013 at [facility] Patient Care team information Care Team Personnel Name: SURINDER CARNEY Position: No Access Member Role: Primary Care Physician Address: Address: [facility] [address] [place], [place] [address]
--- OUTSIDE RECORDS SUMMARY | 2023-02-24 11:16 | XMS_ITS | Continuity of Care Document ---
Author Name Unknown Organization [facility] Ambulatory Clinics Address [address] [place] [address] Care Team Providers Care Soybean Grower Name Role Phone SURINDER CARNEY Primary Care Physician Encounter [facility] NBR [id number] Date(s): 02/03/23 - 02/03/23 [facility] Ambulatory Clinics [address] [place] [address] [place] Discharge Disposition: Home Allergies, Adverse Reactions, Alerts Substance Reaction Severity [...] discectomy 1 Completed 1L3-4 in 2013 at [facility] Patient Care team information Care Team Personnel Name: SURINDER CARNEY Position: No Access Member Role: Primary Care Physician Address: Address: [facility] [address] [place] [address]- [place]
--- OUTSIDE RECORDS SUMMARY | 2023-02-24 11:16 | XMS_ITS | Continuity of Care Document ---
Author Name Unknown Organization [facility] Ambulatory Clinics Address [address] [place] [address] Care Team Providers Care Client Success Director Name Role Phone SURINDER CARNEY Primary Care Physician [phone] Encounter [facility] NBR [id number] Date(s): 02/13/23 - 02/13/23 [facility] Ambulatory Clinics [address] [place] [address] [place] Discharge Disposition: Home Allergies, Adverse Reactions, Alerts Substance Reaction Severity Status sulfa drugs Drug Mild Active Assessment and Plan Future Appointments Future Scheduled Tests Radiology* MRI Spine Lumbar w/o Contrast 02/14/23 Medications AAA - Misc Prescription 20 unknown [...] discectomy 1 Completed 1L3-4 in 2013 at [facility] Patient Care team information Care Team Personnel Name: SURINDER CARNEY Position: No Access Member Role: Primary Care Physician Address: Address: [facility] [address] [place], [place] [address]
--- NOTE | 2023-02-24 11:17 | ED.GENADUL_ITS ---
Discharge Plan Disposition Patient Disposition: Home Discharge Details Clinical Impression: Elevated blood pressure reading, Patient forgets to take medication Primary Care Provider: Rosario Reed ED Provider: David Schwartz Home Meds and New Rx's Prescriptions: Continued diltiazem HCl [Cardizem LA] 360 mg tablet extended release 24 hr 360 mg PO DAILY celecoxib [Celebrex] 100 mg capsule 100 mg PO BID cholecalciferol (vitamin D3) 25 mcg (1,000 unit) capsule 25 mcg PO DAILY polyethylene glycol 3350 [Miralax] 17 gram powder in packet 17 g PO DAILY PRN albuterol sulfate [ProAir HFA] 90 mcg/actuation HFA aerosol inhaler 2 puff inhalation Q6H PRN memantine 5 mg tablet 5 mg PO BID losartan 100 mg tablet 100 mg PO DAILY trazodone 50 mg tablet 50 mg PO QHS PRN Hold Instructions: Pt Stopped/Never Started sennosides [Natural Senna Laxative] 8.6 mg tablet 17.2 mg PO DAILY bupropion HCl [Wellbutrin SR] 150 mg Tablet Sustained-Release 12 Hr 150 mg PO BID magnesium L-lactate 84 mg Tablet Extended Release 84 mg PO HS brimonidine-timolol [Combigan] 0.2-0.5 % Drops 1 drp OPHTHALMIC (EYE) BID fluticasone propionate 50 mcg/actuation spray,suspension 1 spray INTRANASAL BID PRN gabapentin 100 mg capsule 100 mg PO TID carbidopa-levodopa 25-100 mg tablet 2 tab PO TID pantoprazole [Protonix] 40 mg tablet,delayed release (DR/EC) 40 mg PO DAILY Qty: 90 4RF amantadine HCl 100 mg capsule 100 mg PO DAILY furosemide 20 mg tablet 20 mg PO DAILY Patient Comments: Take 1 tablet by mouth once a day Discharge Instructions Additional Instructions: Please take your medication as prescribed. Please contact your primary care physician to arrange follow-up. Return to the ER immediately for any worsening or new concerning symptoms. Referrals: Rosario Reed [Primary Care Provider] - Medical Decision Making 77-year-old female with multimedical arms including history of hypertension, here with elevated blood pressure having not taken her antihypertensive last night or this morning. Patient subsequently took her antihypertensive. Blood pressure now well- controlled. Asymptomatic. Plan for discharge with routine outpatient follow-up. I encouraged patient to m aintain medication compliance and offered some suggestions including setting an alarm. HPI General Mode of arrival: ambulatory . Date/Time Provider Initiated Documentation: 02/24/23 11:00 . Limitations to Documentation: no limitations . Information obtained by: patient . HPI Narrative: 77-year-old female with multimedical problems including history of hypertension, here with concern for elevated blood pressure. Patient notes she forgot to take her antihypertensive last night and this morning. Home health nursing visited her today and noted her blood pressure was elevated with a systolic of 200. She it was recommended that she seek evaluation in the emergency permit given her elevated blood pressure. Patient notes she subsequently took her prescribed antihypertensive and blood pressure has improved. She has no complaints at this time and is requesting discharge on my initial evaluation. Related Data Home Medications Medication Instructions Recorded Confirmed brimonidine 0.2 %-timolol 0.5 % 1 drp ophthalmic (eye) BID 06/18/18 02/24/23 eye drops (Combigan) bupropion HCl 150 mg tablet,12 hr 150 mg PO BID 06/18/18 02/24/23 sustained-release (Wellbutrin SR) magnesium L-lactate 84 mg 84 mg PO HS 06/18/18 02/24/23 tablet,extended release diltiazem HCl 360 mg 360 mg PO DAILY 09/18/18 02/24/23 tablet,extended release 24 hr (Cardizem LA) polyethylene glycol 3350 17 gram 17 g PO DAILY PRN 10/05/18 02/24/23 oral powder packet (Miralax) albuterol sulfate 90 mcg/actuation 2 puff inhalation Q6H PRN 04/23/20 02/24/23 aerosol inhaler (ProAir HFA) pantoprazole 40 mg tablet,delayed 40 mg PO DAILY #90 tabs 05/08/20 02/24/23 release (Protonix) fluticasone propionate 50 1 spray intranasal BID PRN 11/10/20 02/24/23 mcg/actuation nasal spray,suspension losartan 100 mg tablet 100 mg PO DAILY 12/30/21 02/24/23 memantine 5 mg tablet 5 mg PO BID 12/30/21 02/24/23 trazodone 50 mg tablet 50 mg PO QHS PRN 12/30/21 02/24/23 carbidopa 25 mg-levodopa 100 mg 2 tab PO TID 04/19/22 02/24/23 tablet celecoxib 100 mg capsule (Celebrex) 100 mg PO BID 04/19/22 02/24/23 cholecalciferol (vitamin D3) 25 25 mcg PO DAILY 04/19/22 02/24/23 mcg (1,000 unit) capsule gabapentin 100 mg capsule 100 mg PO TID 04/19/22 02/24/23 sennosides 8.6 mg tablet (Natural 17.2 mg PO DAILY 04/19/22 02/24/23 Senna Laxative) amantadine HCl 100 mg capsule 100 mg PO DAILY 12/30/22 02/24/23 furosemide 20 mg tablet 20 mg PO DAILY 12/30/22 02/24/23 Previous Rx's Medication Instructions Recorded pantoprazole 40 mg tablet,delayed 40 mg PO DAILY #90 tabs 05/08/20 release (Protonix) Allergies Allergy/AdvReac Type Severity Reaction Status Date / Time atorvastatin Allergy Intermediate Verified 02/24/23 11:20 lisinopril AdvReac Intermediate cough Verified 02/24/23 11:20 simvastatin AdvReac Intermediate overall Verified 02/24/23 11:20 body ache Sulfa (Sulfonamide AdvReac Intermediate my Verified 02/24/23 11:20 Antibiotics) symptoms got worse General Stated Complaint: GenMedical GIANNA: 3 Review of Systems All systems reviewed & are unremarkable except as noted in HPI and below Constitutional Constitutional: Denies headache(s) ENT Ears, Nose, Mouth, and Throat: Denies headache(s) Cardiovascular Cardiovascular: Denies chest pain Neurologic Neurologic: Denies headache(s) PFSH All Active Problems (Updated 02/24/23 @ 11:21 by David Schwartz MD) Patient forgets to take medication (Acute) Elevated blood pressure reading (Acute) Hallucinations (Acute) Multiple falls (Acute) Generalized weakness (Acute) Acute kidney injury (Acute) Myalgia (Acute) Trochanteric bursitis of right hip (Acute) Sacroiliac joint dysfunction of right side (Acute) Screening for colon cancer (Acute) OAB (overactive bladder) (Acute) Spondylosis of lumbar region without myelopathy or radiculopathy (Chronic) Myalgia and myositis (Chronic) Unspecified disorder of ear, bilateral (Acute) Esophagitis (Acute) Former smoker (Acute) Preop testing (Acute) Cannabis use, uncomplicated (Acute) Hiatal hernia (Chronic) Bile reflux gastritis (Acute) moderate Urge incontinence (Acute) Parkinsons (Chronic) Fibromyalgia (Acute) Lewy body dementia (Chronic) Lactose intolerance (Chronic) Esophageal stricture (Chronic) Dissociative identity disorder (Chronic) Dysphagia (Acute) Medical History Basal cell carcinoma Lipoma Cataracts, bilateral Menopause Multiple thyroid nodules Cellulitis SUGGS (dyspnea on exertion) Excessive sweating Candidiasis, vagina Weight gain DJD (degenerative joint disease), cervical Actinic keratosis Chronic back pain PTSD (post-traumatic stress disorder) Hypercholesterolemia History of substance abuse Adenomatous colon polyp Hypomagnesemia Essential tremor Depression Anxiety Urinary incontinence Glaucoma Surgical History Hx of colonoscopy History of esophagogastroduodenoscopy (EGD) (~05/08/20) History of esophagogastroduodenoscopy (EGD) 11/09/18 History of surgery on arm History of back surgery EGD - [facility] (02/10/16) DR. HAMLET THOMAS, with dilatation EGD - [facility] (01/16/15) DR. HAMLET THOMAS, with dilatation Social History Smoking/Tobacco Use Status: Former Tobacco Use Quit Date: 03/20/75 Smoking risk assessment performed?: Yes Alcohol Intake: never Drug use: Daily Substance use type: marijuana Details: smoke and has edibles. CHRISTOPH PUENTE 02/24/23 Housing: house Do you feel safe at home: Yes Do you feel safe in your relationship?: Yes Exam Const General: cooperative and no acute distress HENMT Mouth: moist mucous membranes Eyes Conjunctivae: normal conjunctivae Sclera: normal sclerae Cardio Rate: regular rate and not tachycardic Rhythm: regular rhythm Neuro General: patient alert, patient awake, patient oriented x3 and tone normal Extrem General: no edema Course Vital Signs Vital signs: Vital Signs Temperature 36.8 C 02/24/23 10:47 Pulse 76 02/24/23 10:47 Respiratory Rate 18 02/24/23 10:47 Blood Pressure 150/68 H 02/24/23 10:47 Pulse Oximetry 96 02/24/23 10:47 Temperature 36.8 C 02/24/23 10:47 Temperature Source Skin 02/24/23 10:47 Pulse 76 02/24/23 10:47 Respiratory Rate 16 02/24/23 10:57 Respiratory Effort Normal 02/24/23 10:57 Respiratory Depth Normal 02/24/23 10:57 Respiratory Pattern Normal 02/24/23 10:57 Blood Pressure 150/68 H 02/24/23 10:47 Pulse Oximetry 96 02/24/23 10:47 Oxygen Delivery Method Room Air 02/24/23 10:47 Oxygen Flow Rate 0 02/24/23 10:47 Pain Level 6 02/24/23 10:47
[2023-02-24 11:31] VITALS: BP 128/59; BP 150/68; PULSE 76; PULSE 80; RESP 16; TEMP 36.8; O2SAT 96; O2SAT 98
--- NOTE | 2023-02-24 11:33 | NUR.NOTE ---
Nursing Note: this RN assisted patient in setting timer in her cell phone she was hoping this would help her remember to take her medications daily
== END 2023-02-24 11:36 | disposition home or self-care (01) ==
PROVIDERS: Emergency Provider Student in an Organized Health Care Education/Training Program; PCP Family Medicine
DX: Z91.148 Patient's other noncompliance with medication regimen for other reason; F12.20 Cannabis dependence, uncomplicated; Z87.891 Personal history of nicotine dependence; I10 Essential (primary) hypertension
CPT/HCPCS: 93005; 99282; 93010; 99283

== ENCOUNTER → 2023-03-01 15:06 | Outpatient (BNVA) | payer MEDICARE, MEDICAID, SELFPAY | PROVIDERS: PCP Family Medicine; Referring Provider Family Medicine; Visit Provider Nurse Practitioner Gerontology | DX: N39.41 Urge incontinence (principal); I10 Essential (primary) hypertension | CPT/HCPCS: 81003; 99214 ==

== ENCOUNTER 2023-04-06 07:01 | Day surgery (SDC) | payer MEDICARE, MEDICAID, SELFPAY ==
[2023-04-06 07:25] VITALS: BP 158/74; PULSE 76; RESP 16; TEMP 36.5; O2SAT 95
[2023-04-06] MEDS: Lactated Ringers 1,000 ML 80 ML IV (07:53)
[2023-04-06] MEDS: Amoxicillin 875/Clav. 125 TAB PO (07:58)
--- NOTE | 2023-04-06 08:10 | W.PM.HP.N ---
Date of service: 04/06/23 Time of Service: 08:10 Assessment and Plan Assessment and plan (1) OAB (overactive bladder): Status: Acute (2) Neurogenic bladder: Status: Acute Assessment and plan: We will repeat an injection of Botox into the detrusor muscle. With her history of a neurogenic bladder, we will use the 200 unit dose. History of Present Illness History of Present Illness Chief Complaint: Overactive Bladder Narrative: This is a 77-year-old woman who has a history of an overactive bladder and a neurogenic bladder (Parkinson's disease. As a result, she has urinary frequency and urgency. She has failed medical management, but has responded to a previous injection of Botox 200 units into the detrusor muscle. The last injection was over 2 years ago. She presents for repeat injection. Review of Systems Narrative: No fevers or chills No vision change or dysphasia No diabetes or thyroid No shortness of breath, cough or hemoptysis No chest pain or palpitations GERD with gastritis/esophagitis. No nausea, vomiting, hepatitis, ulcers, jaundice Parkinsons. No seizures, strokes or peripheral neuropathy No bleeding disorders or anemia No gout PFSH All Active Problems (Updated 04/06/23 @ 08:18 by Emanuel Garcia MD) Neurogenic bladder (Acute) Lumbar spinal stenosis (Acute) Hallucinations (Acute) Multiple falls (Acute) Generalized weakness (Acute) Acute kidney injury (Acute) Trochanteric bursitis of right hip (Acute) Sacroiliac joint dysfunction of right side (Acute) Myalgia (Acute) Screening for colon cancer (Acute) OAB (overactive bladder) (Acute) Urge incontinence (Acute) Bile reflux gastritis (Acute) moderate Hiatal hernia (Chronic) Cannabis use, uncomplicated (Acute) Preop testing (Acute) Former smoker (Acute) Esophagitis (Acute) Unspecified disorder of ear, bilateral (Acute) Dysphagia (Acute) Lactose intolerance (Chronic) Dissociative identity disorder (Chronic) Esophageal stricture (Chronic) Lewy body dementia (Chronic) Parkinsons (Chronic) Fibromyalgia (Acute) Myalgia and myositis (Chronic) Spondylosis of lumbar region without myelopathy or radiculopathy (Chronic) Medical History (Updated 04/06/23 @ 08:18 by Emanuel Garcia MD) Basal cell carcinoma Lipoma Cataracts, bilateral Menopause Multiple thyroid nodules Cellulitis SUGGS (dyspnea on exertion) Excessive sweating Candidiasis, vagina Weight gain DJD (degenerative joint disease), cervical Actinic keratosis Chronic back pain PTSD (post-traumatic stress disorder) pt. states no potential triggers at this time Hypercholesterolemia History of substance abuse Adenomatous colon polyp Hypomagnesemia Essential tremor Depression Anxiety Urinary incontinence Glaucoma Surgical History Hx of colonoscopy History of esophagogastroduodenoscopy (EGD) (~05/08/20) History of esophagogastroduodenoscopy (EGD) 11/09/18 History of surgery on arm History of back surgery EGD - [facility] (02/10/16) DR. HAMLET THOMAS, with dilatation EGD - [facility] (01/16/15) DR. HAMLET THOMAS, with dilatation Social History Smoking/Tobacco Use Status: Former Tobacco Use Quit Date: 03/20/75 Smoking risk assessment performed?: Yes Alcohol Intake: never Drug use: Daily Substance use type: marijuana Housing: house Do you feel safe at home: Yes Do you feel safe in your relationship?: Yes Meds Allergies and Home Medications Allergies Allergy/AdvReac Type Severity Reaction Status Date / Time atorvastatin Allergy Intermediate Verified 04/06/23 07:21 lisinopril AdvReac Intermediate cough Verified 04/06/23 07:21 simvastatin AdvReac Intermediate overall Verified 04/06/23 07:21 body ache Sulfa (Sulfonamide AdvReac Intermediate my Verified 04/06/23 07:21 Antibiotics) symptoms got worse Home Medications Medication Instructions Recorded Confirmed Type brimonidine 0.2 %-timolol 0.5 % 1 drp ophthalmic (eye) BID 06/18/18 04/06/23 History eye drops (Combigan) bupropion HCl 150 mg tablet,12 hr 150 mg PO BID 06/18/18 04/06/23 History sustained-release (Wellbutrin SR) magnesium L-lactate 84 mg 84 mg PO HS 06/18/18 04/06/23 History tablet,extended release diltiazem HCl 360 mg 360 mg PO DAILY 09/18/18 04/06/23 History tablet,extended release 24 hr (Cardizem LA) polyethylene glycol 3350 17 gram 17 g PO DAILY PRN 10/05/18 04/06/23 History oral powder packet (Miralax) albuterol sulfate 90 mcg/actuation 2 puff inhalation Q6H PRN 04/23/20 04/06/23 History aerosol inhaler (ProAir HFA) pantoprazole 40 mg tablet,delayed 40 mg PO DAILY #90 tabs 05/08/20 04/06/23 Rx release (Protonix) losartan 100 mg tablet 100 mg PO DAILY 12/30/21 04/06/23 History memantine 5 mg tablet 5 mg PO BID 12/30/21 04/06/23 History carbidopa 25 mg-levodopa 100 mg 2 tab PO TID 04/19/22 04/06/23 History tablet cholecalciferol (vitamin D3) 25 25 mcg PO DAILY 04/19/22 04/06/23 History mcg (1,000 unit) capsule sennosides 8.6 mg tablet (Natural 17.2 mg PO DAILY 04/19/22 04/06/23 History Senna Laxative) furosemide 20 mg tablet 20 mg PO DAILY 12/30/22 04/06/23 History donepezil 5 mg tablet 5 mg PO DAILY 03/01/23 04/06/23 History gabapentin 100 mg capsule 400 mg PO TID 03/01/23 04/06/23 History mirtazapine 30 mg tablet 30 mg PO QHS 03/01/23 04/06/23 History Exam Const General: cooperative Neck Neck: supple Resp Auscultation: clear to auscultation bilaterally Cardio Rate: regular rate Rhythm: regular rhythm GI Palpation: soft and no masses Neuro General: patient alert and patient awake Results Last Vital Signs Temp 36.5 C 04/06/23 07:25 Pulse 76 04/06/23 07:25 Resp 16 04/06/23 07:25 BP 158/74 H 04/06/23 07:25 Pulse Ox 95 04/06/23 07:25 Time Spent Time spent with Patient: <40 minutes Time was spent: other
--- NOTE | 2023-04-06 08:14 | ANES.PREOP_ITS ---
General Info Date of Service Date Performed: 04/06/23 Height: 5 ft 2 in Weight: 63.5 kg Body Mass Index (BMI): 25.6 Surgical Procedure: Operation Date: 04/06/23 08:55 Proposed Procedure Side Surgeon p Cystoscopy/Transurethral Injection of Botox Emanuel Garcia MD Meds Allergies and Home Medications Allergies Allergy/AdvReac Type Severity Reaction Status Date / Time atorvastatin Allergy Intermediate Verified 04/06/23 07:21 lisinopril AdvReac Intermediate cough Verified 04/06/23 07:21 simvastatin AdvReac Intermediate overall Verified 04/06/23 07:21 body ache Sulfa (Sulfonamide AdvReac Intermediate my Verified 04/06/23 07:21 Antibiotics) symptoms got worse Home Medication Medication Instructions Recorded brimonidine 0.2 %-timolol 0.5 % 1 drp ophthalmic (eye) BID 06/18/18 eye drops (Combigan) bupropion HCl 150 mg tablet,12 hr 150 mg PO BID 06/18/18 sustained-release (Wellbutrin SR) magnesium L-lactate 84 mg 84 mg PO HS 06/18/18 tablet,extended release diltiazem HCl 360 mg 360 mg PO DAILY 09/18/18 tablet,extended release 24 hr (Cardizem LA) polyethylene glycol 3350 17 gram 17 g PO DAILY PRN 10/05/18 oral powder packet (Miralax) albuterol sulfate 90 mcg/actuation 2 puff inhalation Q6H PRN 04/23/20 aerosol inhaler (ProAir HFA) pantoprazole 40 mg tablet,delayed 40 mg PO DAILY #90 tabs 05/08/20 release (Protonix) losartan 100 mg tablet 100 mg PO DAILY 12/30/21 memantine 5 mg tablet 5 mg PO BID 12/30/21 carbidopa 25 mg-levodopa 100 mg 2 tab PO TID 04/19/22 tablet cholecalciferol (vitamin D3) 25 25 mcg PO DAILY 04/19/22 mcg (1,000 unit) capsule sennosides 8.6 mg tablet (Natural 17.2 mg PO DAILY 04/19/22 Senna Laxative) furosemide 20 mg tablet 20 mg PO DAILY 12/30/22 donepezil 5 mg tablet 5 mg PO DAILY 03/01/23 gabapentin 100 mg capsule 400 mg PO TID 03/01/23 mirtazapine 30 mg tablet 30 mg PO QHS 03/01/23 Current Visit Medications: Current Medications Generic Name Dose Route Start Last Admin Trade Name Freq PRN Reason Stop Dose Admin Amoxicillin/Clavulanate Potassium 1 tab 04/06/23 06:00 04/06/23 07:58 Amoxicillin 875/Clav. 125 Tab PO 04/06/23 16:00 1 tab PREOP MANDY Administration OnabotulinumtoxinA 200 units/ 0 units 04/06/23 06:00 Sodium Chloride 20 ml IJ 04/06/23 16:00 DIRECTED MANDY Ringer's Solution 1,000 mls @ 80 mls/hr 04/06/23 06:00 04/06/23 07:53 IV 04/06/23 23:59 80 mls/hr INFUSION MANDY Administration IV Miscellaneous Supplies 1 each 04/06/23 06:00 Iv Access IV 04/06/23 23:59 DIRECTED MANDY Sodium Chloride 0 ml 04/06/23 06:00 Normal Saline Flush 10 Ml Syr IV 04/06/23 23:59 PRN PRN Sodium Chloride 0 ml 04/06/23 06:00 Normal Saline 10 Ml Vial IJ 04/06/23 23:59 DIRECTED PRN Sterile Water 0 ml 04/06/23 06:00 Water,Injection,Sterile 10 Ml Vial IJ 04/06/23 23:59 DIRECTED PRN PFSH Active Problems Active Problems: Problem Status Onset Code Lumbar spinal stenosis M48.061 Hallucinations R44.3 Multiple falls R29.6 Generalized weakness R53.1 Acute kidney injury N17.9 Trochanteric bursitis of right hip M70.61 Sacroiliac joint dysfunction of right side M53.3 Myalgia M79.10 Screening for colon cancer Z12.11 OAB (overactive bladder) N32.81 Urge incontinence N39.41 Bile reflux gastritis K29.60 Hiatal hernia K44.9 Cannabis use, uncomplicated F12.90 Preop testing Z01.818 Former smoker Z87.891 Esophagitis K20.90 Unspecified disorder of ear, bilateral H93.93 Dysphagia R13.10 Lactose intolerance E73.9 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 states no potential triggers at this time Hypercholesterolemia History of substance abuse Adenomatous colon polyp Hypomagnesemia Essential tremor Depression Anxiety Urinary incontinence Glaucoma Surgical History Surgical History Hx of colonoscopy History of esophagogastroduodenoscopy (EGD) (~05/08/20) History of esophagogastroduodenoscopy (EGD) 11/09/18 History of surgery on arm History of back surgery EGD - [facility] (02/10/16) DR. HAMLET THOMAS, with dilatation EGD - [facility] (01/16/15) DR. HAMLET THOMAS, with dilatation Tobacco Smoking/Tobacco Use Status: Former Tobacco Use Alcohol Alcohol Intake: never Substance Use Substance use: Daily Substance use type: marijuana Vital Signs and Lab Results Vital Signs Most Recent Vital Signs in EMR: Most Recent Vital Signs Temp Pulse Resp BP Pulse Ox 36.5 C 76 16 158/74 H 95 04/06/23 07:25 04/06/23 07:25 04/06/23 07:25 04/06/23 07:25 04/06/23 07:25 Lab Results Blood Type / Crossmatch: No Data to Display Complete Blood Count: No Data to Display Complete Metabolic Panel: No Data to Display Liver Function Panel: No Data to Display Coagulation Panel: No Data to Display Cardiac Panel: No Data to Display Arterial Blood Gas: No Data to Display Venous Blood Gas: No Data to Display Pancreas Panel: No Data to Display Thyroid Panel: No Data to Display Infectious Disease: No Data to Display Blood Cultures: No Data to Display Toxicology Panel: No Data to Display Imaging and Studies Imaging and Studies Study information below may be from another EMR and interpreted by another provider. Please see original notes in EMR for more complete details. EKG Summary: EKG PATIENT NAME: Alyson Dee UNIT #: [id number] ORDERING PROVIDER: Susanne Schwartz M.D. PRIMARY CARE PROVIDER: ROSARIO REED DATE/TIME OF SERVICE: 02/24/23 1053 : 1945 PERFORMING LOCATION: ER APPROVED REPORT Exam: Resting ECG Reason for Exam: Hypertension Patient Location: E HR:72 bpm ECG Measurements Heart Rate 72 AXIS NV 218 P 50 QRSd 96 QRS 25 QT 398 T59 QTc 436 Conclusion Sinus rhythm...normal P axis, V-rate 60- 99 Borderline prolonged NV interval...NV >212, V-rate 50- 90 <Electronically signed by SUSANNE SCHWARTZ MD in [facility]> E-Sign Date: 02/24/23 E-Sign Time: 1157 ADDENDUM APPROVED REPORT Exam: Resting ECG Reason for Exam: Hypertension Patient Location: E HR:72 bpm ECG Measurements Heart Rate 72 AXIS NV 218 P 50 QRSd 96 QRS 25 QT 398 T59 QTc 436 Conclusion Sinus rhythm...normal P axis, V-rate 60- 99 Borderline prolonged NV interval...NV >212, V-rate 50- 90 I have reviewed and I agree with the emergency room physician's ECG interpretation. Electronically signed by: <Electronically signed by Nancy Miller M.D. in [facility]> 11/09 1224 Cosigned by: Echocardiogram Summary: Patient Name: Alyson Dee Unit #: [id number] Loc: Ordering Provider: Rosario Reed Status: REG CLI Primary Care Provider: Rosario Reed Date of Exam: 09/07/21 Sex: F Admission Date: 09/07/21 : 1945 Age: 75 APPROVED REPORT EXAM: Comprehensive 2D, Doppler, and color-flow Echocardiogram Patient Location: Out-Patient [employer] Operator: Thelma Galvez RDCS (AE) Indications: SUGGS, Muscle weakness Other Information Study Quality: Adequate Conclusion Normal left ventricular wall thickness and chamber size. Estimated ejection fraction is 55 to 60%. There are no segmental wall motion abnormalities Normal right ventricular size and systolic function Both atria are normal in size The aortic valve is trileaflet and mildly sclerotic without stenosis or regurgitation Normal mitral valve. Mild mitral annular calcification. Trace to mild mitral regurgitation Normal tricuspid valve with trace regurgitation. Estimated right ventricular systolic pressure is 21 mmHg Mildly dilated ascending aorta measuring 3.59 cm Wall motion Left Ventricle The left ventricle is normal size. The left ventricular systolic function is normal. The left ventricular ejection fraction is within the normal range. There is normal left ventricular wall thickness. There is normal LV segmental wall motion. There is no ventricular septal defect visualized. LVEF is 57%. Right Ventricle The right ventricle is normal size. The right ventricular systolic function is normal. The RVSP is 21.3 mmHg. Atria The left atrium size is normal. The right atrium size is normal. The interatrial septum is intact with no evidence for an atrial septal defect. Aortic Valve The aortic valve is mildly sclerotic Aortic valve is trileaflet. There is no aortic valvular stenosis. No aortic regurgitation is present. Mitral Valve The mitral valve is normal in structure. Mild mitral annular calcification No evidence of mitral valve stenosis. Trace to mild mitral regurgitation. Tricuspid Valve The tricuspid valve is normal in structure. There is no tricuspid valve stenosis. Trace tricuspid regurgitation. Pulmonic Valve The pulmonary valve is normal in structure. There is no pulmonic valvular stenosis. There is no pulmonic valvular regurgitation. Great Vessels The aortic root is normal in size. The ascending aorta is mildly dilated.3.59 cm IVC is normal in size and collapses >50% with inspiration. Pericardium There is no pericardial effusion. 2D Dimensions IVSD d PLAX 0.99 cm F: 0.6-1.0LV Vol A2C d MOD 77.4 mL LVPW d PLAX 0.91 cm F: 0.6 - 1.0LV Vol A4C d MOD 75.2 mL LVID d PLAX 4.29 cm F: 3.8 - 5.2LA vol/ BSA A2C s A-L27.6 mL/m2 LVDs 3.00 cm F: 2.2 - 3.5LA vol/ BSA A4C s A-L27.0 mL/m2 Ao Root d 2.79 cm F: 2.7 - 3.3LA Vol/ BSA Biplane s A-L 28.9 mL/m2 RA Area A4C8.84 cm2LA Area A4C s MOD 16.65 cm2 RA Vol/ BSA A4C s A-L 11.0 mL/m2LA Area A2C s MOD 15.89 cm2 Ao Asc Diam d 3.59 cm F: 2.3 - 3.1LV EF A4C MOD 56.7 % LV EF Teichholz 57.4 %LV EF A2C MOD 56.9 % LVEF (Garcia's)57.02 % F: 54 - 74LV EF Biplane MOD 57.0 % LV Zqktmu97.54 mL F: 46 - 792SV12.78 mL LV Volume Index37.29 mL/m2 F: 29 - 61SV Index26.41 mL/m2 LV Vol Biplane MOD 76.8 mL FS29.90 % M-Mode TAPSE 1.71 cm (M/F) >1.7 LV Diastology MV E' medial0.078 (>0.07 m/s)E/A Ratio 0.8 LV E/e MED8.50 (<14)MV E Vmax 0.66 (0.4-1.3 m/s) MV E' lateral0.077 (>0.1 m/s)MV A Vmax 0.85 (0.4-1.3 m/s) LV E/e LAT8.65 (<14)MV E/A Ratio 0.74 MV E/E' medial 8.50 MV E/E' lateral8.68 Aortic Valve LVOT Area2.82 cm2AoV Area Vmax2.74 cm2 LVOT Vmax 1.17 m/sAoV Area/ BSA (Vmax)1.65 cm2/m2 LVOT Mean Brendon.0.73 m/sAVA Mean Brendon.2.45 cm2 LVOT Peak Grad 5.4 mmHgAVA Mean Brendon. Index1.48 cm2/m2 LVOT Mean Grad 2.5 mmHg LVOT VTI0.227 m LVOT Diam s 1.85 cm AoV Vmax1.20 m/s Velocity Ratio 0.97 AoV Mean Brendon.0.84 m/s AoV Peak Grad5.8 mmHg LVOT SV 64.21 mL AoV Mean Grad3.1 mmHg AoV VTI0.236 m AoV Area VTI2.72 cm2 AoV Area/ BSA (VTI)1.64 cm/m2 Mitral Valve MV DT 372 (160-240 msec) MV NBQ858 msec MV Area PHT 2.04 cm2 Pulmonary Valve PV Vmax 0.68 (0.5-1.5 m/s)RVOT Peak Gr.1.18 mmHg PV Peak Grad 1.8 mmHgRVOT Mean Gr.0.65 mmHg PV Mean Grad 1.1 mmHgRVOT VTI0.102 m PV VTI 0.131 mRVOT Vmax 0.54 m/s Tricuspid Valve TR Peak Grad 18.2 mmHgTR Vmax 2.14 m/s RA Pressure 3.00 mmHg RVSP (TR) 21.3 mmHg Ordered By: Rosario Reed CC: Dictated By: Nancy Miller M.D. 09/07/21 1144 <Electronically signed by Nancy Miller M.D. in [place]> 09/07/21 1153 Transcribed By: Nancy Miller MD This is privileged, confidential information intended only for the provider named. Any use or distribution by any person other than this provider is strictly prohibited. If you receive this report in error, please notify us immediately at [phone] and return the original report to us at the address above. Thank-you. Pulmonary Function Summary: pril, simvastatin, Sulfa (Sulfonamide Antibiotics) Pulmonary Function Test PATIENT NAME: ALYSON DEE UNIT #: [id number] ADMITTING PROVIDER: ELISABETH DEE MD PRIMARY CARE PROVIDER: TEQUILA ADAIR MD DATE OF ADMIT: 05/26/14 : 1945 document embedded image document embedded image PULMONARY FUNCTION TEST DATE OF SERVICE: May 26, 2014 REQUESTING PROVIDER: Stacie Reed M.D. INTERPRETATION OF STUDY: The spirometry shows no evidence of obstructive airways disease. No bronchodilator testing was carried out. Lung volume showed no evidence of restriction. Diffusion capacity normal. Airway resistance normal. IMPRESSION: Normal pulmonary function study. Clinical correlation recommended. When this study was compared to previous one from August 23, 2010, the patient has marked improvement of almost 600 cc improvement in FVC and almost 300 cc improvement in FEV1. Clinical correlation recommended. Niraj Morales/karthik 05/26/2014 Dictated by: ELISABETH DEE MD Dictated: 05/26/14 Time: 0000 <Electronically signed by ELISABETH DEE M.D.> Date: 05/28/14 Time: 0857 Transcribed Date: 05/26/14 Transcribed Time: 1503 By: This is privileged, confidential information, intended only for the provider named. Any use or distribution by any person other than this provider is strictly prohibited. If you receive this report in error, please notify us immediately at [phone] and return the original report to us at the address above. Thank you. Anesthesia Assessment and Plan Anesthesia History Personal History: No History of Anesthesia Complications Family History: No Family History of Anesthesia Complications Exercise Tolerance Exercise Tolerance: Metabolic Equivalents>4 Pertinent Negatives Pertinent Negatives: No Symptoms of GERD, No Major Cardiovascular Symptoms or Complaints, No Major Pulmonary Symptoms or Complaints and No History of CVA/TIA Cardiac & Pulmonary Exam Cardiac Exam: Normal S1/S2 Heart Sounds Pulmonary Exam: Clear Bilateral Breath Sounds Implantable Cardiac Device Does patient have a Pacemaker or an ICD?: No Airway Exam Known Difficult Airway: No Mallampati Class: 2 Mouth Opening: Normal (> 3cm) Thyromental Distance: Greater than 3 cm Neck Range of Motion: Full ROM Neck Circumference: Normal Teeth Condition: Loose or Chipped (pt denied any loose or chipped teeth ) ASA Classification ASA Score: ASA 3 Emergency Case?: No NPO Status NPO Status: NPO Clears >2 hours, Solids >8 hours Anesthesia Plan Resuscitation Status: Full Code Anesthesia Technique: General Anesthesia Airway Planned: Natural Airway Monitors Used: Standard Monitors
[2023-04-06] MEDS: Lidocaine 2% Jelly 6 ML SYR (09:00)
[2023-04-06 09:04] VITALS: BMI 25.6
--- NOTE | 2023-04-06 09:09 | BRIEFOP_ITS ---
Date of service: 04/06/23 Time of Service: 09:09 Brief Operative Note Procedure/Pre & Post Op Diagnoses/[employer]: Operation Date: 04/06/23 08:55 Actual Procedures Cystoscopy/Transurethral Injection of Botox - Emanuel Garcia MD Pre-Op Diagnosis: OAB and Neurogenic Bladder Post-Op Diagnosis: OAB and Neurogenic Bladder Anesthesia Anesthesia Type: Local By Surgeon and General:No Airway 5 Specimen/Culture Specimen(s): none Complications Complications: None
[2023-04-06 09:11] VITALS: BP 141/59; PULSE 65; RESP 16; TEMP 36.1; O2SAT 94
--- NOTE | 2023-04-06 09:11 | W.PM.DSUDISC ---
Date of service: 04/06/23 Time of Service: 09:11 Discharge Plan Disposition Patient Disposition: Home Condition: Stable Discharge Details Reason For Visit: cystoscopy with Botox injection Attending Provider: Emanuel Garcia Primary Care Provider: Rosario Reed Home Meds and New Rx's Prescriptions: No Action diltiazem HCl [Cardizem LA] 360 mg tablet extended release 24 hr 360 mg PO DAILY mirtazapine 30 mg tablet 30 mg PO QHS donepezil 5 mg tablet 5 mg PO DAILY gabapentin 100 mg capsule 400 mg PO TID cholecalciferol (vitamin D3) 25 mcg (1,000 unit) capsule 25 mcg PO DAILY polyethylene glycol 3350 [Miralax] 17 gram powder in packet 17 g PO DAILY PRN albuterol sulfate [ProAir HFA] 90 mcg/actuation HFA aerosol inhaler 2 puff inhalation Q6H PRN memantine 5 mg tablet 5 mg PO BID losartan 100 mg tablet 100 mg PO DAILY sennosides [Natural Senna Laxative] 8.6 mg tablet 17.2 mg PO DAILY bupropion HCl [Wellbutrin SR] 150 mg Tablet Sustained-Release 12 Hr 150 mg PO BID magnesium L-lactate 84 mg Tablet Extended Release 84 mg PO HS brimonidine-timolol [Combigan] 0.2-0.5 % Drops 1 drp OPHTHALMIC (EYE) BID carbidopa-levodopa 25-100 mg tablet 2 tab PO TID pantoprazole [Protonix] 40 mg tablet,delayed release (DR/EC) 40 mg PO DAILY Qty: 90 4RF furosemide 20 mg tablet 20 mg PO DAILY Patient Comments: Take 1 tablet by mouth once a day Discharge Instructions Additional Instructions: call 1 week to give us progress report Followup appt 6 months Activity:: Activity as Tolerated Shower/Bathe:: 24 hours Diet:: As Tolerated Discharge Orders Discharge Orders: Discharge Order (Routine); Ordered 04/06/23 Ordered By: Emanuel Garcia DS: Diagnosis Discharge Diagnosis (1) OAB (overactive bladder): Status: Acute (2) Neurogenic bladder: Status: Acute
--- NOTE | 2023-04-06 09:14 | W.PM.OP ---
Date of service: 04/06/23 Time of Service: 09:14 Operative Note Operative Note DATE OF PROCEDURE: 04/06/23 PRE-OP DIAGNOSIS: Overactive Bladder Neurogenic Bladder PROCEDURE: Cystoscopy with transurethral injection of Botox into detrusor muscle SURGEON: Emanuel Garcia ANESTHESIA TYPE: Local By Surgeon and General:No Airway Refer to Anesthesia Record ESTIMATED BLOOD LOSS: 5 PATHOLOGY: none sent COMPLICATIONS: None Patient was transported to: same day Patient's condition: stable Implants: 200 Units Botox Indications: This is a 77-year-old woman who has a history of urinary frequency and urgency consistent with bladder overactivity. She has Parkinson's disease so she has a component of neurogenic bladder. Previously, her symptoms were not well-controlled with oral medications. She did respond to an injection of Botox into the detrusor muscle. Her last injection was about 2 years ago. She presents for repeat injection Findings: normal anatomy Procedure Description: The patient was given a dose of oral antibiotics and brought to the operating room on 04/06/2023. After successful induction of general anesthesia without intubation, she was placed in the dorsal lithotomy position. Her genitalia was prepped with Betadine. 2% Xylocaine jelly was instilled into the urethra to act as a local anesthetic. A 20 [place] urethrotome sheath was passed through the urethra into the bladder. The bladder was inspected with a 30 degree lens. Both ureteral orifices appeared normal with no blood coming from either side. The bladder showed no papillary or nodular lesions. A total of 200 units of Botox mixed and 20 mL of dilute was then injected into the detrusor muscle. We used a grid system with 4 horizontal rows and 5 vertical rows for a total of 20 injection sites. We avoided the trigone and the bladder neck with our injections. The bladder was then emptied and the cystoscope was withdrawn. The patient tolerated the procedure well with no complications. She was taken back to the day surgery unit in stable condition.
--- NOTE | 2023-04-06 09:36 | W.ANESPOSTOP ---
Postoperative Evaluation Date, Time and Location Date Performed: 04/06/23 Time Performed: 09:37 Patient Location: Day Surgery Unit Vital Signs Most Recent Imported Vital Signs: Most Recent Vital Signs Temp Pulse Resp BP Pulse Ox 36.1 C L 65 16 141/59 H 94 04/06/23 09:11 04/06/23 09:11 04/06/23 09:11 04/06/23 09:11 04/06/23 09:11 Pain Score Most Recent Pain Score: Most Recent Pain Score Pain Level 0 04/06/23 09:11 Assessment Mental Status: Awake (Alert & Oriented to Patient Baseline) Airway and Respiratory Function: Patent airway with normal (patient baseline) respiratory exam Cardiovascular Function: Hemodynamically Stable Hydration Status: Adequately Hydrated Nausea & Vomiting: No Nausea or Vomiting Pain: Pt. Denies Any Pain Peripheral Nerve Block: Patient did not receive a nerve block
[2023-04-06 09:39] VITALS: BP 133/61; PULSE 61; RESP 14; TEMP 36.3; O2SAT 93
[2023-04-06] MEDS: Phenazopyridine 200 MG TAB PO (10:11)
== END 2023-04-06 10:30 | disposition home or self-care (01) ==
PROVIDERS: PCP Family Medicine; Visit Provider Urology
PROC: (CPT 52287; principal; 2023-04-06 08:45)
DX: N32.81 Overactive bladder (principal); N39.41 Urge incontinence; N31.9 Neuromuscular dysfunction of bladder, unspecified
CPT/HCPCS: 52287; J0131; J0585; J1100; J1885; J2001; J2405; J2704

== ENCOUNTER 2023-05-24 18:27 | Outpatient (CLI) | payer MEDICARE, MEDICAID, SELFPAY | END 2023-05-24 18:28 | disposition home or self-care (01) | LOC: PC 18:27 | PROVIDERS: PCP Family Medicine; Visit Provider Preventive Medicine Occupational Medicine ==

== ENCOUNTER 2023-09-04 10:50 | Outpatient (REF) | payer MEDICARE, MEDICAID, SELFPAY ==
[2023-09-04 15:25] LABS: HCT 40.5 % (36.0-46.0); HGB 12.8 g/dL (11.2-15.7); MCH 29.6 pg (27.0-33.0); MCHC 31.6 % (32.0-36.0); MCV 94 fL (80-95); MPV 10.2 fL (8.0-11.0); Platelet Count 263 10^3/uL (130-400); RBC 4.33 10^6/uL (3.93-5.22); RDW-SD 44.7 fL; WBC 7.69 10^3/uL (4.4-10.8)
[2023-09-04 15:58] LABS: ALT 14 U/L (14-59); AST 8 U/L (15-37); Albumin 3.8 g/dL (3.4-5.0); Alkaline Phosphatase 137 U/L (46-116); BUN 23 mg/dL (7-18); Bilirubin, Total 0.4 mg/dL (0.2-1.0); CREATININE 1.1 mg/dL (0.55-1.02); Calcium 9.1 mg/dL (8.5-10.1); Chloride 107 mmol/L (98-107); Estimated GFR 52.08 (mL/min/1.73m2); FREE T4 0.93 ng/dL (0.76-1.46); Glucose 179 mg/dL (74-106); Magnesium 1.9 mg/dL (1.8-2.4); Potassium 3.9 mmol/L (3.5-5.1); Sodium 147 mmol/L (136-145); TSH 0.57 uIU/Ml (0.36-3.74); Total Protein 6.1 g/dL (6.4-8.2)
[2023-09-04 16:54] LABS: Vitamin B12 318 pg/mL (193-986); Vitamin D 25 Total 59.4 ng/mL (30-100)
== END 2023-09-04 10:51 | disposition home or self-care (01) ==
LOC: NCHCN 10:50
PROVIDERS: PCP Family Medicine; Visit Provider Physician Assistant
DX: Z13.1 Encounter for screening for diabetes mellitus (principal); R53.83 Other fatigue; E55.9 Vitamin D deficiency, unspecified
CPT/HCPCS: 80053; 82306; 85027; 82607; 83036; 83735; 84439; 84443